=== PATIENT | female | born 1980 | race Caucasian/White ===

== ENCOUNTER 2018-02-24 10:25 | Emergency (ER) | payer MEDICAID, OTHER ==
[2018-02-24 10:38] VITALS: BP 157/84; PULSE 90; TEMP 98.3
[2018-02-24 10:48] VITALS: RESP 18
[2018-02-24] MEDS ORDERED: IBUPROFEN 800 MG TAB PO STA (10:49)
--- NOTE | 2018-02-24 11:00 | ED ---
URI HPI - General Chief Complaint: Upper Respiratory Infection Stated Complaint: flu like symptoms Time Seen by Provider: 02/24/18 10:39 Source: patient Mode of arrival: ambulatory Limitations: no limitations - History of Present Illness Initial Comments: Patient is a 37-year-old female presents with chief complaint of cough and chills since Friday. The patient cannot identify an inciting incident. There are no aggravating or alleviating factors. The patient admits to mild shortness of breath. She states her cough is productive though she does not know the color of her sputum. 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 Patient's medical history is otherwise noncontributory, she does not take any medications daily. She has no known ALLERGIES. - Related Data Previous Rx's Medication Instructions Recorded Azithromycin [Zithromax Z-pack] 250 mg PO DIRECTED #6 tab 02/24/18 Fluticasone Nasal [place] [Flonase 1 spray EA NOSTRIL DAILY #1 bottle 02/24/18 Nasal [place]] Allergies Allergy/AdvReac Type Severity Reaction Status Date / Time No Known Allergies Allergy Verified 02/24/18 10:49 Review of Systems ROS Statement: Those systems with pertinent positive or pertinent negative responses have been documented in the HPI. ROS Other: All systems not noted in ROS Statement are negative. Constitutional: Reports: chills Respiratory: Reports: cough Musculoskeletal: Reports: myalgia Past Medical History Past Medical History: Fibromyalgia History of Any Multi-Drug Resistant Organisms: None Reported Past Surgical History: Breast Surgery, Section, Orthopedic Surgery, Tubal Ligation Additional Past Surgical History / Comment(s): right knee surgery. Breast reduction. x 3 Past Psychological History: Anxiety, Depression Smoking Status: Current every day smoker Past Alcohol Use History: None Reported Past Drug Use History: None Reported General Exam Limitations: no limitations General appearance: alert, in no apparent distress Head exam: Present: atraumatic, normocephalic Eye exam: Present: normal appearance ENT exam: Present: mucous membranes moist Neck exam: Present: normal inspection Respiratory exam: Present: normal lung sounds bilaterally. Absent: respiratory distress, wheezes Cardiovascular Exam: Present: regular rate, normal rhythm GI/Abdominal exam: Present: soft. Absent: distended, tenderness Rectal exam: Present: deferred Extremities exam: Present: normal inspection Back exam: Present: normal inspection Neurological exam: Present: alert, oriented X3 Psychiatric exam: Present: normal affect, normal mood Skin exam: Present: warm, dry, intact Course Vital Signs 02/24/18 02/24/18 10:36 10:46 Temperature 98.3 F Pulse Rate 90 Respiratory 16 18 Rate Blood Pressure 157/84 O2 Sat by Pulse 98 Oximetry Medical Decision Making - Medical Decision Making Patient presents with a chief complaint of cough, congestion, and chills. On initial evaluation, vital signs are stable, patient is in no acute distress. Patient reevaluated with influenza swab, chest x-ray. She was given Motrin for myalgias. 11:36 AM X-ray shows no acute process, influenza is negative. Patient will be prescribed azithromycin, and Flonase. She was instructed to follow up with primary care 1-2 days, return to the emergency department if symptoms worsen or change. - Lab Data Lab Results 02/24/18 Range/Units 10:48 Influenza Type A RNA Not Detected (Not Detectd) Influenza Type B (PCR) Not Detected (Not Detectd) Disposition Clinical Impression: Bronchitis, Sinusitis Disposition: HOME SELF-CARE Condition: Good Instructions: Upper Respiratory Infection (ED) Is patient prescribed a controlled substance at d/c from ED?: No Referrals: None,Stated [Primary Care Provider] - 1-2 days Sophie Hill MD [STAFF PHYSICIAN] - 1-2 days Boom Murphy MD [REFERRING] - 1-2 days
--- NOTE | 2018-02-24 11:29 | XR ---
EXAMINATION TYPE: XR chest 2V DATE OF EXAM: 02/24/2018 COMPARISON: NONE HISTORY: Chest pain and flulike symptoms TECHNIQUE: Frontal and lateral views of the chest are obtained. FINDINGS: There is no focal air space opacity, pleural effusion, or pneumothorax seen. The cardiac silhouette size is within normal limits. The osseous structures are intact. IMPRESSION: No acute cardiopulmonary process.
== END 2018-02-24 11:48 | disposition home or self-care (01) ==
LOC: EC 10:25
DX: J40 Bronchitis, not specified as acute or chronic (principal); J32.9 Chronic sinusitis, unspecified; F17.200 Nicotine dependence, unspecified, uncomplicated
CPT/HCPCS: 71046; 87502; 99283

== ENCOUNTER 2018-06-25 08:59 | Observation (INO) | payer MEDICAID ==
[2018-06-25] MEDS ORDERED: SODIUM CHLORIDE 0.9% 1,000 ML IV STA (09:23)
[2018-06-25] MEDS ORDERED: ASPIRIN 81 MG PO STA (09:23)
[2018-06-25 09:43] LABS: Basophils % (A) 0 %; Eosinophils # (A) 0.1 k/uL (0-0.7); Eosinophils % (A) 2 %; HGB 13.2 gm/dL (11.4-16.0); Lymphocytes # (A) 2.5 k/uL (1.0-4.8); Lymphocytes % (A) 30 %; MCHC 32.3 g/dL (31.0-37.0); MCV 86.6 fL (80.0-100.0); Mean Platelet Volume 6.5; Monocytes # (A) 0.3 k/uL (0-1.0); Monocytes % (A) 4 %; Neutrophils # (A) 5.2 k/uL (1.3-7.7); Neutrophils % (A) 63 %; Platelet Count 325 k/uL (150-450); RBC 4.74 m/uL (3.80-5.40); RDW 13.9 % (11.5-15.5); WBC 8.3 k/uL (3.8-10.6)
--- NOTE | 2018-06-25 09:46 | ED ---
General Adult HPI - General Chief complaint: Chest Pain Stated complaint: CHEST PAIN Source: patient Mode of arrival: wheelchair Limitations: no limitations - History of Present Illness Initial comments: Dictation was produced using app[employer]obi dictation software. please excuse any grammatical, word or spelling errors. Chief Complaint: 87-year-old female past medical history of fibromyalgia presents with chest pain. History of Present Illness: Patient reports that she's been having chest pain for several weeks now. She states her chest pain was more worse than usual prompted her to come to the emergency department. She is accompanied by her friend. Patient has any chest trauma. Denies any history of cardiac disease. No family history of cardiac disease or sudden before the age of 45. Patient states pain is to her entire chest. She does report that the pain sometimes radiates to her left shoulder. Denies any associated diaphoresis, nausea or vomiting. Denies any constitutional symptoms. Patient states she's been coughing a little bit. She reports the chest pain is constant. The ROS documented in this emergency department record has been reviewed and confirmed by me. Those systems with pertinent positive or negative responses have been documented in the HPI. All other systems are other negative and/or noncontributory. - Related Data Home Medications Medication Instructions Recorded Confirmed Ibuprofen [Motrin Ib] 800 mg PO Q8HR PRN 06/25/18 06/25/18 Allergies Allergy/AdvReac Type Severity Reaction Status Date / Time No Known Allergies Allergy Verified 06/25/18 09:02 Review of Systems ROS Statement: Those systems with pertinent positive or pertinent negative responses have been documented in the HPI. ROS Other: All systems not noted in ROS Statement are negative. Past Medical History Past Medical History: Fibromyalgia History of Any Multi-Drug Resistant Organisms: None Reported Past Surgical History: Breast Surgery, Section, Orthopedic Surgery, Tubal Ligation Additional Past Surgical History / Comment(s): right knee surgery. Breast reduction. x 3 Past Psychological History: Anxiety, Depression Smoking Status: Current every day smoker Past Alcohol Use History: None Reported Past Drug Use History: None Reported General Exam - General Exam Comments Initial Comments: PHYSICAL EXAM: General Impression: Alert and oriented x3, not in acute distress HEENT: Normocephalic atraumatic, extra-ocular movements intact, pupils equal and reactive to light bilaterally, mucous membranes moist. Cardiovascular: Heart regular rate and rhythm, S1&S2 audible, no murmurs, rubs or gallops Chest: Lungs clear to auscultation bilaterally, no rhonchi, no wheeze, no rales Abdomen: Bowel sounds present, abdomen soft, non-tender, non-distended, no organomegaly Musculoskeletal: Pulses present and equal in all extremities, no peripheral edema Motor: Power 5/5 bilaterally, no focal deficits noted Neurological: CN II-XII grossly intact, no focal motor or sensory deficits noted Skin: Intact with no visualized rashes Psych: Normal affect and mood Limitations: no limitations Course Vital Signs 06/25/18 06/25/18 06/25/18 09:01 09:32 10:02 Temperature 97 F L Pulse Rate 90 70 Pulse Rate [ 78 Intellectual Property Manager ] Respiratory 20 16 Rate Blood Pressure 132/95 121/76 O2 Sat by Pulse 98 98 Oximetry Medical Decision Making - Medical Decision Making ED course:-year-old female presents with clinical presentation consistent with atypical chest pain with typical features. Patient does have risk factors of tobacco use, obesity. Denies any cardiac history. No strong family history of cardiac disease. As upon arrival are within acceptable limits. EKG is not normal. There are T-wave inversions in the precordial leads. Patient does have a history of SVT. Given clinical presentation I believe it is warranted that patient undergo cardiac lab analysis an x-ray given clinical presentation EKG changes. Laboratory evaluation obtained showing no acute processes. First set cardiac enzymes are negative. Chest x- ray shows no acute processes. EKG from 2007 was obtained showing no abnormalities to the T waves. These EKG findings are new and appear to be croup making anatomical sense. Patient to be admitted for observation to primary care physician for suture troponins possible cardiac stress test. She is understandable agreeable to disposition. EKG Interpretation: A 12 lead EKG was obtained. It was interpreted by myself and attending physician. There is a P wave before every QRS complex. Rate is 66. Rhythm is normal sinus rhythm,. Interval 134, QRS 80, QTc 446. QT is not prolonged. No ST segment depression or elevation. There are T-wave inversions of the precordial leads V 2 through V5. - Lab Data Result diagrams: 06/25/18 09:31 06/25/18 09:31 Lab Results 06/25/18 06/25/18 06/25/18 Range/Units 09:31 09:31 09:31 WBC 8.3 (3.8-10.6) k/uL RBC 4.74 (3.80-5.40) m/uL Hgb 13.2 (11.4-16.0) gm/dL Hct 41.0 (34.0-46.0) % MCV 86.6 (80.0-100.0) fL MCH 28.0 (25.0-35.0) pg MCHC 32.3 (31.0-37.0) g/dL RDW 13.9 (11.5-15.5) % Plt Count 325 (150-450) k/uL Neutrophils % 63 % Lymphocytes % 30 % Monocytes % 4 % Eosinophils % 2 % Basophils % 0 % Neutrophils # 5.2 (1.3-7.7) k/uL Lymphocytes # 2.5 (1.0-4.8) k/uL Monocytes # 0.3 (0-1.0) k/uL Eosinophils # 0.1 (0-0.7) k/uL Basophils # 0.0 (0-0.2) k/uL PT (9.0-12.0) sec INR (<1.2) APTT (22.0-30.0) sec D-Dimer (<0.60) mg/L FEU Sodium 141 (137-145) mmol/L Potassium 4.1 (3.5-5.1) mmol/L Chloride 109 H (98-107) mmol/L Carbon Dioxide 23 (22-30) mmol/L Anion Gap 9 mmol/L BUN 13 (7-17) mg/dL Creatinine 0.68 (0.52-1.04) mg/dL Est GFR (CKD-EPI)AfAm >90 (>60 ml/min/1.73 sqM) Est GFR (CKD-EPI)NonAf >90 (>60 ml/min/1.73 sqM) Glucose 93 (74-99) mg/dL Calcium 9.3 (8.4-10.2) mg/dL Magnesium 2.1 (1.6-2.3) mg/dL Total Bilirubin 0.4 (0.2-1.3) mg/dL AST 25 (14-36) U/L ALT 39 (9-52) U/L Alkaline Phosphatase 95 (38-126) U/L Total Creatine Kinase 64 (30-135) U/L CK-MB (CK-2) 0.7 (0.0-2.4) ng/mL CK-MB (CK-2) Rel Index 1.1 Troponin I <0.012 (0.000-0.034) ng/mL Total Protein 6.5 (6.3-8.2) g/dL Albumin 3.9 (3.5-5.0) g/dL 06/25/18 Range/Units 09:31 WBC (3.8-10.6) k/uL RBC (3.80-5.40) m/uL Hgb (11.4-16.0) gm/dL Hct (34.0-46.0) % MCV (80.0-100.0) fL MCH (25.0-35.0) pg MCHC (31.0-37.0) g/dL RDW (11.5-15.5) % Plt Count (150-450) k/uL Neutrophils % % Lymphocytes % % Monocytes % % Eosinophils % % Basophils % % Neutrophils # (1.3-7.7) k/uL Lymphocytes # (1.0-4.8) k/uL Monocytes # (0-1.0) k/uL Eosinophils # (0-0.7) k/uL Basophils # (0-0.2) k/uL PT 10.5 (9.0-12.0) sec INR 1.1 (<1.2) APTT 23.0 (22.0-30.0) sec D-Dimer 0.18 (<0.60) mg/L FEU Sodium (137-145) mmol/L Potassium (3.5-5.1) mmol/L Chloride (98-107) mmol/L Carbon Dioxide (22-30) mmol/L Anion Gap mmol/L BUN (7-17) mg/dL Creatinine (0.52-1.04) mg/dL Est GFR (CKD-EPI)AfAm (>60 ml/min/1.73 sqM) Est GFR (CKD-EPI)NonAf (>60 ml/min/1.73 sqM) Glucose (74-99) mg/dL Calcium (8.4-10.2) mg/dL Magnesium (1.6-2.3) mg/dL Total Bilirubin (0.2-1.3) mg/dL AST (14-36) U/L ALT (9-52) U/L Alkaline Phosphatase (38-126) U/L Total Creatine Kinase (30-135) U/L CK-MB (CK-2) (0.0-2.4) ng/mL CK-MB (CK-2) Rel Index Troponin I (0.000-0.034) ng/mL Total Protein (6.3-8.2) g/dL Albumin (3.5-5.0) g/dL Disposition Clinical Impression: Chest pain Disposition: ADMITTED IP TO THIS HOSP Referrals: Satinder Bellamy MD [Primary Care Provider] - 1-2 days Decision Time: 10:55
--- NOTE | 2018-06-25 09:49 | XR ---
EXAMINATION TYPE: XR chest 2V DATE OF EXAM: 06/25/2018 COMPARISON: Chest x-ray February 24, 2018 HISTORY: Chest pain. TECHNIQUE: Frontal and lateral views of the chest are obtained. FINDINGS: There is no focal air space opacity, pleural effusion, or pneumothorax seen. The cardiac silhouette size is within normal limits. The osseous structures are intact. IMPRESSION: No acute process. No significant change from prior.
[2018-06-25 09:52] LABS: ALT 39 U/L (9-52); AST 25 U/L (14-36); Albumin 3.9 g/dL (3.5-5.0); Alkaline Phosphatase 95 U/L (38-126); Anion Gap 9 mmol/L; Blood Urea Nitrogen 13 mg/dL (7-17); Calcium 9.3 mg/dL (8.4-10.2); Carbon Dioxide 23 mmol/L (22-30); Chloride 109 mmol/L (98-107); Glucose 93 mg/dL (74-99); Magnesium 2.1 mg/dL (1.6-2.3); Potassium 4.1 mmol/L (3.5-5.1); Sodium 141 mmol/L (137-145); Total Bilirubin 0.4 mg/dL (0.2-1.3); Total Protein 6.5 g/dL (6.3-8.2)
[2018-06-25 09:56] LABS: D-Dimer 0.18 mg/L FEU (<0.60); INR 1.1 (<1.2); Prothrombin Time 10.5 sec (9.0-12.0)
[2018-06-25 10:01] LABS: Creatine Kinase 64 U/L (30-135)
[2018-06-25 10:15] LABS: Creatine Kinase MB 0.7 ng/mL (0.0-2.4); Troponin I <0.012 ng/mL (0.000-0.034)
[2018-06-25] MEDS ORDERED: NITROGLYCERIN SL TABS 0.4 MG TAB SUBLINGUAL PRN (10:49)
[2018-06-25] MEDS ORDERED: ALPRAZolam 1 MG TAB PO STA (11:07)
[2018-06-25] MEDS ORDERED: KETOROLAC 30 MG/ML 1 ML VIAL IVP PRN (15:58)
[2018-06-25 16:36] LABS: Creatine Kinase 51 U/L (30-135)
[2018-06-25 16:50] LABS: Creatine Kinase MB 0.4 ng/mL (0.0-2.4); Troponin I <0.012 ng/mL (0.000-0.034)
[2018-06-25] MEDS: CYCLOBENZAPRINE 10 MG TAB PO SCH (20:25)
[2018-06-25] MEDS ORDERED: guaiFENesin SYRUP 100MG/5ML 200 MG/10 ML CUP PO PRN (20:27)
[2018-06-25 21:20] LABS: Creatine Kinase 45 U/L (30-135)
[2018-06-25 21:30] LABS: Creatine Kinase MB 0.4 ng/mL (0.0-2.4); Troponin I <0.012 ng/mL (0.000-0.034)
[2018-06-26 03:24] LABS: Cholesterol 220 mg/dL (<200); HDL Cholesterol 62 mg/dL (40-60); LDL Cholesterol,Calculated 148 mg/dL (0-99); Triglycerides 49 mg/dL (<150)
[2018-06-26 08:04] VITALS: RESP 18
[2018-06-26] MEDS: CYCLOBENZAPRINE 10 MG TAB PO SCH ×2 (08:06→16:56)
[2018-06-26] MEDS ORDERED: ASPIRIN 325 MG TAB PO SCH (09:00)
[2018-06-26 15:52] VITALS: BP 112/75; PULSE 73; TEMP 98.5
--- NOTE | 2018-06-26 17:21 | HP ---
HISTORY AND PHYSICAL CHIEF COMPLAINT: Chest pain. HISTORY OF PRESENT ILLNESS: This is the first admission for this 37-year-old white female who came in describing a pressure-like sensation in the anterior chest which had been going on for 2 or 3 weeks. She had no diaphoresis, exertional exacerbation, shortness of breath, back pain, radiation of pain, etc. She does seem like a very anxious individual. The pain was on the right side of the chest. REVIEW OF SYSTEMS: She has had no fever, chills, cough, hemoptysis, heart disease, murmurs, fever, hypertension, abdominal pain, nausea, vomiting, diarrhea, renal disease, diabetes, etc. PAST MEDICAL HISTORY, FAMILY HISTORY, PERSONAL AND SOCIAL HISTORIES: Find that there is some heart disease in her family, but in elderly men. She is not allergic to any medication. She has been on Effexor and Abilify in the past and has been out of them lately. She does smoke. PHYSICAL EXAM: Blood pressure 110/78, pulse 72, respirations of 18 and she is afebrile. In general, she appeared to be well-developed, well-nourished, in no acute distress. Skin color is normal. Skin is warm and dry. Lymph nodes are not enlarged. Head, ears, eyes, nose, mouth and throat were normal. Neck veins were not distended. Thyroid is not enlarged. Chest is clear. There are no rubs. Cardiac is normal. There are no murmurs or extra sounds. The abdomen is soft and nontender and there are no masses or visceromegaly. Extremities are normal. Neurologically, she is intact. Chest wall is not tender. IMPRESSION: 1. Right-sided atypical chest pain. 2. Anxiety. PLAN: 1. Bed rest. 2. EKGs and enzymes and further workup, if necessary. MMODL / IJN: [id number] /
--- NOTE | 2018-06-26 21:27 | DS ---
DISCHARGE SUMMARY CHIEF COMPLAINT: Atypical chest pain. HISTORY OF PRESENT ILLNESS AND PHYSICAL EXAM: Details can be found in the laboratory section of chart. COURSE IN HOSPITAL: After admission, she was placed on bed rest, started on intravenous fluids and had serial EKGs and enzymes and they were normal. Flexeril seemed to help. She was very anxious and requested prescriptions for the Flexeril and to be put back on her Effexor and Abilify. She will be seen in the office in several days. FINAL DIAGNOSES: 1. Atypical chest pain. 2. Anxiety neurosis. 3. Bipolar depression. OPERATIONS: None. CONSULTATION: None. She is improved. MMODL / IJN: [id number] /
== END 2018-06-26 17:08 | disposition home or self-care (01) ==
LOC: EC 08:59 → 3OBS 10:49
PROVIDERS: ADMIT Family Medicine; ATTEND Family Medicine
DX: R07.89 Other chest pain (principal); R05 Cough; R94.31 Abnormal electrocardiogram [ECG] [EKG]; F41.1 Generalized anxiety disorder; F31.9 Bipolar disorder, unspecified; F17.200 Nicotine dependence, unspecified, uncomplicated; E66.9 Obesity, unspecified; Z68.32 Body mass index [BMI] 32.0-32.9, adult; Z82.49 Family history of ischemic heart disease and other diseases of the circulatory system
CPT/HCPCS: 99285 ×2; 96374; 36415; 93005; 85379; 80061; 80053; 82550; 82553; 83735; 84484; 85025; 85610; 85730; 71046; G0378 ×2; J1885

== ENCOUNTER 2018-12-07 07:03 | Observation (INO) | payer BC, MEDICAID ==
[2018-12-07] MEDS ORDERED: ASPIRIN 81 MG PO STA (07:11)
--- NOTE | 2018-12-07 07:28 | ED ---
Chest Pain HPI - General Source: patient, RN notes reviewed Mode of arrival: wheelchair Limitations: no limitations <Barry Narayan - Last Filed: 12/07/18 09:12> <Andres Schofield - Last Filed: 12/07/18 09:19> - General Chief Complaint: Chest Pain Stated Complaint: Chest Pain Time Seen by Provider: 12/07/18 07:11 - History of Present Illness Initial Comments: 38-year-old female presents emergency Department with chief complaint of chest pain. Patient had intermittent chest pain for last few months. Patient saw PCP who scheduled an echo and further testing. Patient states that this episode of chest pain started around 4 AM. Patient states it's centralized nonradiating. She has no history of hypertension or diabetes. She does have mild hyperlipidemia though no current medications. She is a daily smoker and has cardiac family history. Patient denies any leg swelling, leg pain no recent traveling. Patient states she does get nauseated when the pain starts. The pain is not exacerbated by exercise. (Barry Narayan) - Related Data Home Medications Medication Instructions Recorded Confirmed LORazepam [Ativan] 0.5 mg PO DAILY PRN 12/07/18 12/07/18 Venlafaxine HCl [Effexor XR] 225 mg PO HS 12/07/18 12/07/18 Allergies Allergy/AdvReac Type Severity Reaction Status Date / Time No Known Allergies Allergy Verified 12/07/18 07:34 Review of Systems ROS Other: All systems not noted in ROS Statement are negative. <Barry Narayan - Last Filed: 12/07/18 09:12> ROS Other: All systems not noted in ROS Statement are negative. <Andres Schofield - Last Filed: 12/07/18 09:19> ROS Statement: Those systems with pertinent positive or pertinent negative responses have been documented in the HPI. EKG Findings - EKG Comments: EKG Findings:: EKG performed at 17:24 normal sinus rhythm for long QT with a rate of 89 NV 140 QRS 88 QT/QTC 382/464 <Barry Narayan - Last Filed: 12/07/18 09:12> Past Medical History Past Medical History: Fibromyalgia, Hyperlipidemia Additional Past Medical History / Comment(s): Pt recently told cholesterol was high and instructed to go on a low cholesterol diet. History of Any Multi-Drug Resistant Organisms: None Reported Past Surgical History: Breast Surgery, Section, Orthopedic Surgery, Tubal Ligation Additional Past Surgical History / Comment(s): right knee arthroscopic surgery, bilateral breast reduction. x 3, Past Anesthesia/Blood Transfusion Reactions: No Reported Reaction Past Psychological History: Anxiety, Depression Smoking Status: Current every day smoker Past Alcohol Use History: Occasional Past Drug Use History: None Reported - Past Family History Father Family Medical History: No Reported History Additional Family Medical History / Comment(s): Father is healthy. HTN and diabetes runs on his side of the family. Mother Family Medical History: No Reported History <Barry Narayan - Last Filed: 12/07/18 09:12> General Exam Limitations: no limitations General appearance: alert, in no apparent distress Head exam: Present: atraumatic, normocephalic, normal inspection Eye exam: Present: normal appearance, PERRL, EOMI. Absent: scleral icterus, conjunctival injection, periorbital swelling ENT exam: Present: normal exam, normal oropharynx, mucous membranes moist, TM's normal bilaterally Neck exam: Present: normal inspection, full ROM. Absent: tenderness, meningismus, lymphadenopathy Respiratory exam: Present: normal lung sounds bilaterally. Absent: respiratory distress, wheezes, rales, rhonchi, stridor Cardiovascular Exam: Present: regular rate, normal rhythm, normal heart sounds. Absent: systolic murmur, diastolic murmur, rubs, gallop, clicks GI/Abdominal exam: Present: soft, normal bowel sounds. Absent: distended, tenderness, guarding, rebound, rigid Back exam: Absent: CVA tenderness (R), CVA tenderness (L) Neurological exam: Present: alert Skin exam: Present: warm, dry, intact, normal color. Absent: rash <Barry Narayan - Last Filed: 12/07/18 09:12> Course <Barry Narayan - Last Filed: 12/07/18 09:12> <Andres Schofield - Last Filed: 12/07/18 09:19> Vital Signs 12/07/18 12/07/18 12/07/18 07:07 07:34 09:10 Temperature 98.1 F 97.2 F L Pulse Rate 98 86 Pulse Rate [ 84 Database Management Specialist ] Respiratory 18 18 Rate Blood Pressure 141/91 135/95 O2 Sat by Pulse 100 100 Oximetry - Reevaluation(s) Reevaluation #1: 12/07/18 09:18 Patient reevaluated by myself, Dr. Schofield. Patient resting comfortably in bed. Patient and family updated on results and plan. Case was discussed in detail with Dr. Brizuela, who will admit his patient. I did review and wouldn't be findings. This includes all diagnostic interpretations and treatment plan. ( Andres Schofield) Chest Pain MDM <Barry Narayan - Last Filed: 12/07/18 09:12> <Andres Schofield - Last Filed: 12/07/18 09:19> - MDM 38-year-old female presented for chest pain. Patient has had intermittent chest pain but new episode started this morning. Patient will be admitted for echo and possible stress test. (Barry Narayan) Disposition Time of Disposition: 09:12 <Barry Narayan - Last Filed: 12/07/18 09:12> <Andres Schofield - Last Filed: 12/07/18 09:19> Clinical Impression: Chest pain Disposition: ADMITTED IP TO THIS HOSP Condition: Stable Referrals: Tomi Brizuela MD [Primary Care Provider] - 1-2 days
[2018-12-07 08:00] LABS: Basophils % (A) 0 %; Eosinophils # (A) 0.1 k/uL (0-0.7); Eosinophils % (A) 1 %; HGB 14.4 gm/dL (11.4-16.0); Lymphocytes # (A) 1.8 k/uL (1.0-4.8); Lymphocytes % (A) 19 %; MCH 29.4 pg (25.0-35.0); MCHC 33.5 g/dL (31.0-37.0); MCV 87.7 fL (80.0-100.0); Monocytes # (A) 0.4 k/uL (0-1.0); Monocytes % (A) 4 %; Neutrophils # (A) 7.1 k/uL (1.3-7.7); Neutrophils % (A) 74 %; Platelet Count 306 k/uL (150-450); WBC 9.6 k/uL (3.8-10.6)
--- NOTE | 2018-12-07 08:00 | XR ---
EXAMINATION TYPE: XR chest 2V DATE OF EXAM: 12/07/2018 COMPARISON: 06/25/2018 INDICATION: Chest pain, nausea TECHNIQUE: Frontal and lateral views of the chest are obtained. FINDINGS: The heart size is normal. The pulmonary vasculature is normal. The lungs are clear. IMPRESSION: 1. No acute pulmonary process.
[2018-12-07 08:12] LABS: ALT 39 U/L (9-52); AST 20 U/L (14-36); Albumin 4.2 g/dL (3.5-5.0); Alkaline Phosphatase 101 U/L (38-126); Anion Gap 9 mmol/L; Blood Urea Nitrogen 12 mg/dL (7-17); Calcium 11.1 mg/dL (8.4-10.2); Carbon Dioxide 24 mmol/L (22-30); Chloride 107 mmol/L (98-107); Glucose 110 mg/dL (74-99); Lipase 154 U/L (23-300); Magnesium 1.6 mg/dL (1.6-2.3); Potassium 4.1 mmol/L (3.5-5.1); Sodium 140 mmol/L (137-145); Total Bilirubin 0.3 mg/dL (0.2-1.3); Total Protein 7.1 g/dL (6.3-8.2)
[2018-12-07 08:42] LABS: D-Dimer 0.18 mg/L FEU (<0.60); Partial Thromboplastin Time 23.7 sec (22.0-30.0); Prothrombin Time 10.5 sec (9.0-12.0)
[2018-12-07] MEDS ORDERED: HEPARIN SODIUM,PORCINE 5,000 UNIT/ML 1 ML VIAL IV ONE (09:09)
[2018-12-07] MEDS ORDERED: NITROGLYCERIN SL TABS 0.4 MG TAB SUBLINGUAL PRN (09:09)
[2018-12-07] MEDS: HEPARIN SOD,PORK IN 0.45% NACL 25,000 UNIT in 0.45% NACL 1 250ML.BAG IV SCH (09:39)
--- NOTE | 2018-12-07 11:29 | P.HPIM ---
History of Present Illness 38-year-old female presented emergency room with complaints of left-sided chest pain. Patient states that is been intermittent for for a few months started in June was worse today. States she has some nausea and palpitations with the chest pain. Patient has had a cough for 2 months. Patient is a smoker history of of hyperlipidemia fibromyalgia. Patient to be evaluated by cardiology Review of Systems Cardiovascular: Reports chest pain, Reports palpitations Gastrointestinal: Reports nausea Past Medical History Past Medical History: Fibromyalgia, Hyperlipidemia Additional Past Medical History / Comment(s): Mildly elevated cholesterol-no RX yet, pt states she has had nausea past few months and the cause is unknow/she has lost 20 pounds over the past few months, near syncope, bronchitis. History of Any Multi-Drug Resistant Organisms: None Reported Past Surgical History: Breast Surgery, Section, Orthopedic Surgery, Tubal Ligation Additional Past Surgical History / Comment(s): right knee arthroscopic surgery, bilateral breast reduction. x 3, Past Anesthesia/Blood Transfusion Reactions: No Reported Reaction Smoking Status: Current every day smoker - Past Family History Father Family Medical History: No Reported History Additional Family Medical History / Comment(s): Father is healthy. HTN and diabetes runs on his side of the family. Mother Family Medical History: No Reported History Additional Family Medical History / Comment(s): Mother is healthy Medications and Allergies Home Medications Medication Instructions Recorded Confirmed Type LORazepam [Ativan] 0.5 mg PO DAILY PRN 12/07/18 12/07/18 History Venlafaxine HCl [Effexor XR] 225 mg PO HS 12/07/18 12/07/18 History Allergies Allergy/AdvReac Type Severity Reaction Status Date / Time No Known Allergies Allergy Verified 12/07/18 07:34 Physical Exam Vitals: Vital Signs Temp Pulse Pulse Pulse Resp BP BP 12/07/18 09:50 97.8 F 74 18 151/94 12/07/18 09:10 97.2 F L 86 18 135/95 12/07/18 07:34 84 12/07/18 07:07 98.1 F 98 18 141/91 Pulse Ox 12/07/18 09:50 98 12/07/18 09:10 100 12/07/18 07:34 12/07/18 07:07 100 Intake and Output 12/06/18 12/07/18 12/07/18 22:59 06:59 14:59 Other: Voiding Method Toilet # Voids 1 Weight 79.379 kg - Constitutional General appearance: mild distress - EENT Eyes: PERRLA Ears: bilateral: normal - Neck Neck: normal ROM - Respiratory Respiratory: bilateral: CTA - Cardiovascular Rhythm: regular - Gastrointestinal General gastrointestinal: soft - Integumentary Integumentary: normal - Neurologic Neurologic: CNII-XII intact - Musculoskeletal Musculoskeletal: gait normal - Psychiatric Psychiatric: A&O x's 3, appropriate affect, intact judgment & insight Results CBC & Chem 7: 12/07/18 07:40 12/07/18 07:40 Labs: Abnormal Lab Results - Last 24 Hours (Table) 12/07/18 Range/Units 07:40 Glucose 110 H (74-99) mg/dL Calcium 11.1 H (8.4-10.2) mg/dL Chest x-ray: report reviewed Thrombosis Risk Factor Assmnt - Choose All That Apply Any of the Below Risk Factors Present?: Yes Each Factor Represents 1 point: Obesity (BMI >25) Other Risk Factors: No Other congenital or acquired thrombophilia - If yes, enter type in comment: No Thrombosis Risk Factor Assessment Total Risk Factor Score: 1 Thrombosis Risk Factor Assessment Level: Low Risk Assessment and Plan Plan: Assessment Chest pain History of fibromyalgia History of hyperlipidemia Plan Cardiology consultation echo ordered
--- NOTE | 2018-12-07 13:15 | ECHOF ---
Referral Reason:chest pain MEASUREMENTS -------- HEIGHT: 160.0 cm WEIGHT: 79.4 kg BP: RVIDd: 2.6 cm (< 3.3) IVSd: 0.9 cm (0.6 - 1.1) LVIDd: 4.1 cm (3.9 - 5.3) LVPWd: 1.2 cm (0.6 - 1.1) IVSs: 1.0 cm LVIDs: 3.4 cm LVPWs: 1.2 cm LA Diam: 3.3 cm (2.7 - 3.8) Ao Diam: 2.5 cm (2.0 - 3.7) AV Cusp: 1.9 cm (1.5 - 2.6) LA Diam: 3.7 cm (2.7 - 3.8) MV EXCURSION: 17.354 mm (> 18.000) MV EF SLOPE: 75 mm/s (70 - 150) EPSS: 0.5 cm MV E Lon: 0.91 m/s MV DecT: 247 ms MV A Lon: 1.04 m/s MV E/A Ratio: 0.88 RAP: 5.00 mmHg RVSP: 13.97 mmHg FINDINGS -------- Sinus rhythm. This was a technically adequate study. LV size, wall thickness and systolic function are normal, with an EF greater than 55%. The left lazaro tricular size is normal. The right ventricle is normal in size. The left atrial size is normal. The right atrial size is normal. The aortic valve is trileaflet, and appears structurally normal. No aortic stenosis or regurgitation. Mild mitral annular calcification present. Mild mitral regurgitation is present. Mild tricuspid regurgitation present. There is no evidence of pulmonary hypertension. The right v entricular systolic pressure, as measured by Doppler, is 13.97mmHg. Trace/mild (physiologic) pulmonic regurgitation. The aortic root size is normal. There is no pericardial effusion. CONCLUSIONS -------- 1. LV size, wall thickness and systolic function are normal, with an EF greater than 55%. 2. The left ventricular size is normal. 3. The right ventricle is normal in size. 4. The left atrial size is normal. 5. The right atrial size is normal. 6. The aortic valve is trileaflet, and appears structurally normal. No aortic stenosis or regurgitati on. 7. Mild mitral annular calcification present. 8. Mild mitral regurgitation is present. 9. Mild tricuspid regurgitation present. 10. There is no evidence of pulmonary hypertension. 11. The right ventricular systolic pressure, as measured by Doppler, is 13.97mmHg. 12. Trace/mild (physiologic) pulmonic regurgitation. 13. The aortic root size is normal. 14. There is no pericardial effusion. CERTIFIED FAMILY MEDIATOR: Jacquie Smith RDCS
[2018-12-07] MEDS ORDERED: HEPARIN SODIUM,PORCINE 5,000 UNIT/ML 1 ML VIAL IV PRN (17:05)
[2018-12-07] MEDS: VENLAFAXINE HCL ER 75 MG CAP PO SCH (20:36)
[2018-12-08] MEDS: HEPARIN SOD,PORK IN 0.45% NACL 25,000 UNIT in 0.45% NACL 1 250ML.BAG IV SCH (05:42)
[2018-12-08] MEDS: ACETAMINOPHEN TAB 325 MG TAB PO PRN (05:51)
[2018-12-08] MEDS: LORazepam 0.5 MG TAB PO PRN ×2 (05:54→20:22)
[2018-12-08 07:22] VITALS: RESP 18
[2018-12-08 08:35] LABS: Mean Platelet Volume 6.5; Platelet Count 273 k/uL (150-450)
[2018-12-08 08:41] LABS: Cholesterol 226 mg/dL (<200); HDL Cholesterol 66 mg/dL (40-60); LDL Cholesterol,Calculated 138 mg/dL (0-99); Triglycerides 109 mg/dL (<150)
--- NOTE | 2018-12-08 10:36 | P.CRDCN ---
History of Present Illness History of present illness: This is a pleasant 38-year-old female past medical history significant for SVT, dyslipidemia, fibromyalgia and chronic nicotine dependence. She states she underwent an EP study with Dr. Bartlett in the past but no ablation was performed, exact details unavailable. We have been asked to see her in consultation for chest pain. She states for the recent few months, since June she has been feeling a heavy sensation in the mid-sternal region with no radiation to the arm, back, neck or jaw. The discomfort comes most at rest with no specific aggravating factors. When it starts it is very intense and usually she can take some deep breaths and it will subside on its own. Also she has been feeling intermittent feelings of fluttering and palpitations in the chest. The way she describes it as her heart beats fast and irregular then it seems to stop and she feels acutely light headed like she is going to pass out. There has been no actual syncope or loss of consciousness per the patient. This is not associated with chest pain or shortness of breath. The chest pain and palpitations are unrelated. She is currently chest pain free and not feeling any palpitations. Echocardiogram obtained on admission reveals preserved LV systolic function with EF 55%. EKG reveals sinus mechanism with nonspecific T-wave flattening noted in the precordial leads. Consistent with previous EKG compared to June 2018. Chest x-ray is negative for acute cardiopulmonary process. Laboratory data reviewed, WBC 9.6, hemoglobin 14.4, platelets 306, d-dimer 0.18 , sodium 140, potassium 4.1, magnesium 1.6, creatinine 0.65, cardiac enzymes negative 3, LDL 138, HDL 66. She takes no daily cardiac medications. At the time of my exam: CONSTITUTIONAL: Denies fever. Denies chills. EYES: Denies blurred vision. Denies vision changes. Denies eye pain. EARS, NOSE, MOUTH & THROAT: Denies headache. Denies sore throat. Denies ear pain. CARDIOVASCULAR: Denies chest pain. Denies shortness of breath. Denies orthopnea. Denies PND. Denies palpitations. RESPIRATORY: Denies cough. GASTROINTESTINAL: Denies abdominal pain. Denies diarrhea. Denies constipation. Denies nausea. Denies vomiting. MUSCULOSKELETAL: Denies myalgias. INTEGUMENTARY: Denies pruitis. Denies rash. NEUROLOGIC: Denies numbness. Denies tingling. Denies weakness. PSYCHIATRIC: Denies anxiety. Denies depression. ENDOCRINE: Denies fatigue. Denies weight change. Denies polydipsia. Denies polyurina. GENITOURINARY: Denies burning, hematuria or urgency with micturation. HEMATOLOGIC: Denies history of anemia. Denies bleeding. Blood pressure 123/80 heart rate 73 afebrile maintaining oxygen saturation on room air GENERAL: This is a 38-year-old female in no apparent distress at the time of my examination. HEENT: Head is atraumatic, normocephalic. Pupils are equal, round. Sclerae anicteric. Conjunctivae are clear. Mucous membranes of the mouth are moist. Neck is supple. There is no jugular venous distention. No carotid bruit is heard. LUNGS: Clear to auscultation no wheezes, rales or rhonchi. No chest wall tenderness is noted on palpation or with deep breathing. HEART: Regular rate and rhythm without murmurs, rubs or gallops. S1 and S2 heard. ABDOMEN: Soft, nontender. Bowel sounds are heard. No organomegaly noted. EXTREMITIES: No evidence of peripheral edema and no calf tenderness noted. VASCULAR: Radial and dorsalis pedis pulses palpated, no evidence of clubbing. NEUROLOGIC: Patient is awake, alert and oriented x3. ASSESSMENT Chest pain, atypical. An acute coronary event has been ruled out with no acute EKG changes and negative cardiac enzymes. Palpitations with presyncopal episodes Dyslipidemia Chronic nicotine dependence. PLAN An acute coronary event has been ruled out. Discontinue heparin infusion. Baseline EKG abnormalities noted, will recommend stress echocardiogram to assess for stress induced ischemia as well as exercise induced arrhythmia. Check TSH. Ongoing telemetry monitoring for an acute arrhythmia. Recommend lifestyle modifications for lowering of cholesterol as well as smoking cessation. If testing is unremarkable she may be discharged home. Outpatient event monitoring will also be set up through the office and she will follow up with Dr. Morataya thereafter. Thank you kindly for this consultation. Nurse Practitioner note has been reviewed, I agree with a documented findings and plan of care. Patient was seen and examined. Past Medical History Past Medical History: Fibromyalgia, Hyperlipidemia Additional Past Medical History / Comment(s): Mildly elevated cholesterol-no RX yet, pt states she has had nausea past few months and the cause is unknow/she has lost 20 pounds over the past few months, near syncope, bronchitis. History of Any Multi-Drug Resistant Organisms: None Reported Past Surgical History: Breast Surgery, Section, Orthopedic Surgery, Tubal Ligation Additional Past Surgical History / Comment(s): right knee arthroscopic surgery, bilateral breast reduction. x 3, Past Anesthesia/Blood Transfusion Reactions: No Reported Reaction Smoking Status: Current every day smoker - Past Family History Father Family Medical History: No Reported History Additional Family Medical History / Comment(s): Father is healthy. HTN and diabetes runs on his side of the family. Mother Family Medical History: No Reported History Additional Family Medical History / Comment(s): Mother is healthy Medications and Allergies Home Medications Medication Instructions Recorded Confirmed Type LORazepam [Ativan] 0.5 mg PO DAILY PRN 12/07/18 12/07/18 History Venlafaxine HCl [Effexor XR] 225 mg PO HS 12/07/18 12/07/18 History Allergies Allergy/AdvReac Type Severity Reaction Status Date / Time No Known Allergies Allergy Verified 12/07/18 07:34 Physical Exam Vitals: Vital Signs Temp Pulse Pulse Resp BP BP BP 12/08/18 07:27 12/08/18 07:21 97.9 F 73 18 123/80 12/08/18 03:57 97.8 F 80 16 130/84 12/08/18 03:21 16 12/08/18 00:00 16 12/07/18 23:09 98.2 F 70 16 114/71 12/07/18 20:00 16 12/07/18 19:54 12/07/18 19:33 98.3 F 64 16 123/81 12/07/18 15:39 98.8 F 78 18 125/81 12/07/18 12:47 12/07/18 12:00 98.3 F 81 18 123/86 12/07/18 09:50 97.8 F 74 18 151/94 12/07/18 09:10 97.2 F L 86 18 135/95 Pulse Ox 12/08/18 07:27 99 12/08/18 07:21 98 12/08/18 03:57 99 12/08/18 03:21 12/08/18 00:00 12/07/18 23:09 98 12/07/18 20:00 02/25/19 19:54 97 12/07/18 19:33 98 12/07/18 15:39 98 12/07/18 12:47 96 12/07/18 12:00 97 12/07/18 09:50 98 12/07/18 09:10 100 Intake and Output 12/07/18 12/08/18 12/08/18 22:59 06:59 14:59 Intake Total 188.289 176.32 Balance 188.289 176.32 Intake: Intake, IV Titration 70.289 176.32 Amount Heparin Sod,Pork in 0.45% 70.289 176.32 NaCl 25,000 unit In 0.45 % NaCl 1 250ml.bag @ 12 UNITS/KG/HR 9.52 mls/hr IV .Q24H [facility] Rx#: [id number] Oral 118 Other: Voiding Method Toilet Toilet # Voids 1 1 Results 12/08/18 07:49 12/07/18 07:40 Cardiac Enzymes 12/07/18 12/07/18 12/07/18 Range/Units 07:40 13:30 19:29 Troponin I <0.012 <0.012 <0.012 (0.000-0.034) ng/mL Coagulation 12/07/18 12/07/18 12/07/18 Range/Units 07:40 15:50 23:15 PT 10.5 (9.0-12.0) sec APTT 23.7 37.5 H 59.7 H (22.0-30.0) sec Current Medications Generic Name Dose Route Start Last Admin Trade Name Freq PRN Reason Stop Dose Admin Acetaminophen 650 mg 12/08/18 05:48 12/08/18 05:51 Tylenol Tab PO 650 mg Q4HR PRN Administration Fever and/ or Pain Aspirin 325 mg 12/08/18 09:00 Aspirin PO DAILY [facility] Heparin Sodium (Porcine) 0 unit 12/07/18 17:05 12/07/18 17:27 Heparin IV 2,750 unit PER PROTOCOL PRN Administration Low PTT Protocol Lorazepam 0.5 mg 12/07/18 11:19 12/08/18 05:54 Ativan PO 0.5 mg DAILY PRN Administration Anxiety Nitroglycerin 0.4 mg 12/07/18 09:09 Nitrostat SUBLINGUAL Q5M PRN Chest Pain Venlafaxine HCl 225 mg 12/07/18 21:00 12/07/18 20:36 Effexor Xr PO 225 mg HS [facility] Administration Intake and Output 12/07/18 12/08/18 12/08/18 22:59 06:59 14:59 Intake Total 188.289 176.32 Balance 188.289 176.32 Intake: Intake, IV Titration 70.289 176.32 Amount Heparin Sod,Pork in 0.45% 70.289 176.32 NaCl 25,000 unit In 0.45 % NaCl 1 250ml.bag @ 12 UNITS/KG/HR 9.52 mls/hr IV .Q24H [facility] Rx#: [id number] Oral 118 Other: Voiding Method Toilet Toilet # Voids 1 1 12/07/18 07:40 12/07/18 07:40
--- NOTE | 2018-12-08 10:55 | P.PN ---
Subjective Patient resting in bed states she has intermittent slight chest pressure. Patient has been evaluated by cardiology on there is a plan for a stress echo. Diagnosed with atypical chest pain troponins negative 3 Objective - Vital Signs Vital signs: Vital Signs Temp 97.9 F 12/08/18 07:21 Pulse 73 12/08/18 08:00 Resp 18 12/08/18 08:00 BP 123/80 12/08/18 07:21 Pulse Ox 99 12/08/18 07:27 Intake & Output 12/07/18 12/08/18 12/08/18 18:59 06:59 18:59 Intake Total 428.289 176.32 0 Balance 428.289 176.32 0 Weight 79.379 kg Intake: Intake, IV Titration 70.289 176.32 Amount Heparin Sod,Pork in 0.45% 70.289 176.32 NaCl 25,000 unit In 0.45 % NaCl 1 250ml.bag @ 12 UNITS/KG/HR 9.52 mls/hr IV .Q24H [facility] Rx#: [id number] Oral 358 0 Other: Voiding Method Toilet Toilet Toilet # Voids 1 1 2 - Constitutional General appearance: Present: mild distress - EENT Eyes: Present: PERRLA Ears: bilateral: normal - Neck Neck: Present: normal ROM - Respiratory Respiratory: left: wheezing - Cardiovascular Rhythm: regular - Gastrointestinal General gastrointestinal: Present: soft - Integumentary Integumentary: Present: normal - Neurologic Neurologic: Present: CNII-XII intact - Musculoskeletal Musculoskeletal: Present: gait normal - Psychiatric Psychiatric: Present: A&O x's 3, appropriate affect, intact judgment & insight - Labs CBC & Chem 7: 12/08/18 07:49 12/07/18 07:40 Labs: Abnormal Lab Results - Last 24 Hours (Table) 12/07/18 12/07/18 12/08/18 Range/Units 15:50 23:15 07:49 APTT 37.5 H 59.7 H (22.0-30.0) sec Cholesterol 226 H (<200) mg/dL LDL Cholesterol, Calc 138 H (0-99) mg/dL HDL Cholesterol 66 H (40-60) mg/dL - Imaging and Cardiology Chest x-ray: report reviewed Assessment and Plan Plan: Assessment Atypical chest pain troponins negative 3 History of SVT Fibromyalgia Hyperlipidemia Plan Continue consultation with cardiology scheduled for a stress test
[2018-12-08 11:06] VITALS: BMI 30.9
[2018-12-08] MEDS: ASPIRIN 325 MG TAB PO SCH (12:18)
--- NOTE | 2018-12-08 16:43 | US ---
EXAMINATION TYPE: US abdomen complete DATE OF EXAM: 12/08/2018 COMPARISON: NONE CLINICAL HISTORY: nausea. EXAM MEASUREMENTS: Liver Length: 14.8 cm Gallbladder Wall: 0.2 cm CBD: 0.3 cm Spleen: 8.6 cm Right Kidney: 10.0 x 4.1 x 5.0 cm Left Kidney: 9.8 x 5.0 x 4.8 cm Pancreas: Tail obscured by overlying bowel gas Liver: wnl Gallbladder: wnl Evidence for sonographic Simpson's sign: No CBD: wnl Spleen: limited visualization Right Kidney: wnl Left Kidney: wnl Upper IVC: wnl Abd Aorta: bifurcation obscured by bowel gas, portions visualized wnl The liver is homogenous. The intrahepatic portion of the IVC and proximal abdominal aorta are within normal limits. There is no evidence of cholelithiasis. Common bile duct is unremarkable. The visu alized portions of the pancreas are homogenous. The spleen is unremarkable. Kidneys are symmetric a nd free of hydronephrosis. No renal lesions are seen. IMPRESSION: Negative complete abdominal sonogram. No gallstones or dilated ducts.
[2018-12-08] MEDS ORDERED: ONDANSETRON 4 MG/2 ML VIAL IVP PRN (20:15)
[2018-12-08] MEDS: VENLAFAXINE HCL ER 75 MG CAP PO SCH (20:21)
[2018-12-08] MEDS: traMADol 50 MG TAB PO PRN (20:22)
[2018-12-09] MEDS: ASPIRIN 325 MG TAB PO SCH (08:35)
[2018-12-09] MEDS: ACETAMINOPHEN TAB 325 MG TAB PO PRN (08:35)
[2018-12-09] MEDS: traMADol 50 MG TAB PO PRN (11:34)
--- NOTE | 2018-12-09 11:47 | P.PN ---
Subjective Awaiting recommendations from cardiology for discharge. Continues with nausea and epigastric pain abdominal ultrasound ordered HIDA scan. Hopeful discharge soon with recommendations of cardiology Objective - Vital Signs Vital signs: Vital Signs Temp 98.4 F 12/09/18 11:28 Pulse 82 12/09/18 11:28 Resp 18 12/09/18 11:28 BP 128/85 12/09/18 11:28 Pulse Ox 99 12/09/18 11:28 Intake & Output 12/08/18 12/09/18 12/09/18 18:59 06:59 18:59 Intake Total 820 440 Balance 820 440 Weight 79.379 kg Intake: Oral 620 240 Other 200 200 Other: Voiding Method Toilet Toilet Toilet # Voids 2 1 - Constitutional General appearance: Present: mild distress - EENT Eyes: Present: PERRLA Ears: bilateral: normal - Neck Neck: Present: normal ROM - Respiratory Respiratory: bilateral: CTA - Cardiovascular Rhythm: regular - Gastrointestinal General gastrointestinal: Present: soft Localized gastrointestinal: tender: epigastric periumbilical - Integumentary Integumentary: Present: normal - Neurologic Neurologic: Present: CNII-XII intact - Musculoskeletal Musculoskeletal: Present: gait normal - Psychiatric Psychiatric: Present: A&O x's 3, appropriate affect, intact judgment & insight - Labs CBC & Chem 7: 12/08/18 07:49 12/07/18 07:40 - Imaging and Cardiology US - abdomen: report reviewed Assessment and Plan Plan: Assessment Atypical chest pain troponins negative 3 Epigastric pain with nausea History of SVT Fibromyalgia Hyperlipidemia Plan Awaiting results from stress testing cardiology recommendations for discharge HIDA scan ordered
--- NOTE | 2018-12-09 13:33 | ECHOS ---
STRESS ECHOCARDIOGRAM DATE OF SERVICE: 12/08/2018 INDICATIONS: Chest pain. MEDICATIONS: BASELINE HEART RATE: 59 BASELINE BLOOD PRESSURE: 138/86 MAXIMUM HEART RATE: 169 MAXIMUM BLOOD PRESSURE: 199/92 85% MPHR: 153 100% MPHR: 180 METS: 11.1 MAXIMUM STAGE REACHED: III TOTAL EXERCISE TIME: 9 minutes 48 seconds CLINICAL INFORMATION: STRESS DATA: Pretesting physical examination showed a heart rate of 59, pressure is 138/86 mmHg. Baseline EKG showed sinus mechanism. The patient exercised on the treadmill according to Daniel protocol for a total of 9 minutes and 48 seconds and achieved 11.1 METs. The max heart rate was 169, which is about 93% of maximum predicted heart rate. Maximum blood pressure was 199/92 mmHg. Clinically the patient did not have any symptoms of chest pain or discomfort and the EKG did not show any significant ST or T-wave abnormalities concerning for ischemia. ECHOCARDIOGRAM IMAGES: On echocardiogram images from parasternal long axis view, parasternal short axis view, apical 4 chamber and apical 2 chamber view were obtained as the baseline images, at the peak of the heart rate, as well as on recovery and the echo showed normal in the left ventricular systolic function without any evidence of wall motion abnormalities concerning for ischemia. CONCLUSION: 1. Excellent exercise tolerance. 2. Normal EKG in response to exercise. 3. Normal echocardiogram in response to exercise. 4. Essentially normal stress echocardiogram. MMODL / IJN: [id number] /
--- NOTE | 2018-12-09 13:47 | NM ---
Nuclear medicine hepatobiliary scan. HISTORY: Pain. DOSAGE: The patient received 1.6 micrograms of CCK and 3.0 mCi of Technetium 99m Choletec. FINDINGS: There is normal hepatic extraction. The gallbladder is seen by 10 minutes. There is bilia ry to bowel clearance by 40 minutes. Ejection fraction is 89%. IMPRESSION: 1. Ejection fraction of 89% which can occasionally be associated with hyperdynamic gallbladder. Corre late clinically.
[2018-12-09 15:22] VITALS: BP 119/80; PULSE 80; TEMP 97.8
--- NOTE | 2018-12-09 16:17 | P.DS ---
Providers Date of admission: 12/07/18 09:19 Expected date of discharge: 12/09/18 Attending physician: Tomi Brizuela Consults: 12/07/18 09:09 Consult Physician Urgent Consulting Provider: Silvano Morataya Consult Reason/Comments: chest pain Do you want consulting provider notified?: Yes Primary care physician: Tomi Brizuela [facility] Course: 38-year-old female was meant to the emergency room with complaints of intermittent chest pain since June. Was evaluated by cardiology negative for acute ischemia. Patient continued with epigastric pain abdominal ultrasound and HIDA scan done. Found to have hyperactive gallbladder will be referred to gastroenterology Assessment Chest pain atypical troponins negative 3 negative stress test Epigastric pain hyperactive gallbladder History of SVT Fibromyalgia Hyperlipidemia Plan Follow up with family physician Dr. Tomi Brizuela and cardiology Patient Condition at Discharge: Stable Plan - Discharge Summary Discharge Rx Participant: No New Discharge Prescriptions: New Ondansetron [Zofran] 4 mg PO Q8HR PRN 3 Days #12 tab NS MDD 3 tab PRN Reason: Nausea No Action Venlafaxine HCl [Effexor XR] 225 mg PO HS LORazepam [Ativan] 0.5 mg PO DAILY PRN PRN Reason: Anxiety Discharge Medication List LORazepam [Ativan] 0.5 mg PO DAILY PRN 12/07/18 [History] Venlafaxine HCl [Effexor XR] 225 mg PO HS 12/07/18 [History] Ondansetron [Zofran] 4 mg PO Q8HR PRN 3 Days #12 tab NS MDD 3 tab 12/09/18 [Rx] Follow up Appointment(s)/Referral(s): Tomi Brizuela MD [Primary Care Provider] - 1-2 days Silvano Morataya MD [STAFF PHYSICIAN] - 6 Weeks (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 Marissa is office contact for event monitor. ) Discharge Disposition: HOME SELF-CARE
== END 2018-12-09 16:40 | disposition home or self-care (01) ==
LOC: EC 07:03 → 1SOBS 09:19
PROVIDERS: ADMIT Family Medicine; ATTEND Family Medicine
DX: R07.89 Other chest pain (principal); K82.9 Disease of gallbladder, unspecified; R55 Syncope and collapse; R42 Dizziness and giddiness; E78.5 Hyperlipidemia, unspecified; M79.7 Fibromyalgia; R00.2 Palpitations; F41.9 Anxiety disorder, unspecified; F32.9 Major depressive disorder, single episode, unspecified; F17.200 Nicotine dependence, unspecified, uncomplicated; E78.00 Pure hypercholesterolemia, unspecified; E66.9 Obesity, unspecified; Z68.31 Body mass index [BMI] 31.0-31.9, adult; Z79.899 Other long term (current) drug therapy; Z98.51 Tubal ligation status; Z86.79 Personal history of other diseases of the circulatory system; Z87.09 Personal history of other diseases of the respiratory system; Z83.3 Family history of diabetes mellitus; Z82.49 Family history of ischemic heart disease and other diseases of the circulatory system
CPT/HCPCS: 96366 ×2; 96376 ×2; 96365; 99285; 36415; 93005; 93306; 93351; 85379; 80061; 80053; 84443; 83690; 83735; 84484; 85025; 85049; 85610; 85730; 71046; 76700; 78227; G0378 ×3; A9537; J1644 ×3; J2805

== ENCOUNTER 2018-12-22 10:49 | Day surgery (SDC) | payer BC ==
[2018-12-18 09:53] VITALS: BMI 30.9
[~2018-12-22 10:49] MED LIST: LACTATED RINGERS 1,000 ML IV SCH
[2018-12-22 11:43] VITALS: TEMP 97.4
[2018-12-22] MEDS ORDERED: LIDOCAINE 1% 20 ML VIAL (10MG/ML) FOR IV START INTRADERMA ONE (11:57)
[2018-12-22] MEDS ORDERED: LIDOCAINE 1% INJ 10MG/ML (20 ML MDV) ONE (12:57)
[2018-12-22] MEDS ORDERED: PROPOFOL 10 MG/ML 20 ML VIAL IV ONE (12:57)
[2018-12-22 13:46] VITALS: BP 123/84; PULSE 67; RESP 16
--- NOTE | 2018-12-22 14:04 | P.PCN ---
Date of Procedure: 12/22/18 Procedure(s) Performed: Procedure: Esophagogastroduodenoscopy and biopsy. Preoperative diagnosis: Nausea and atypical chest pain. Postoperative diagnosis: 1. Small sliding hiatal hernia with no obvious esophagitis or complicated reflux disease. 2. Mild antral gastritis. 3. Multiple biopsies obtained from the duodenum, antrum and esophagus. Preparation and sedation: Was provided by anesthesia. Brief clinical history: The patient is a 38-year-old female who was evaluated in the office earlier this month regarding nausea, heartburn and abdominal and atypical chest pain. The patient had an ultrasound of the gallbladder which was normal and a stress test which was normal. Her nausea and heartburn has and going on for the last 6 months or so. She has lost 15-20 pounds in the last 6 months. She was provided on Nexium without had. This evaluation is to assess for neoplasia, complicated reflux or other pathology. Procedure: With the patient on her left lateral decubitus position and after informed consent and adequate sedation, I passed the Olympus-GIF H 190L video upper endoscope through the cricopharyngeus down the esophagus. GE junction was around 36 cm from the incisors and there was a small hiatal hernia but no definite esophagitis or complicated reflux disease. The endoscope was then passed into the stomach which was insufflated with air and inspected in detail including the retroflex view in the cardia. There was some mottling and erythema in the antrum but no ulcers or erosions. Pyloric channel, duodenal bulb, post bulbar area and descending duodenum appeared within normal limits. Because of her symptoms, I obtained biopsies from the duodenum, antrum and esophagus then the endoscope was withdrawn. The patient tolerated the procedure well. Plan: The patient was reassured. Will await biopsy results and make further plans based on her course and biopsy results. She will follow-up with you as planned and I will keep you updated on her progress.
== END 2018-12-22 13:53 | disposition home or self-care (01) ==
LOC: ORWHC2ENDO 10:49
DX: K29.50 Unspecified chronic gastritis without bleeding (principal); K20.0 Eosinophilic esophagitis; K21.9 Gastro-esophageal reflux disease without esophagitis; K44.9 Diaphragmatic hernia without obstruction or gangrene; E78.5 Hyperlipidemia, unspecified; F17.210 Nicotine dependence, cigarettes, uncomplicated; M79.7 Fibromyalgia; Z79.899 Other long term (current) drug therapy
CPT/HCPCS: 81025; 88305; 43239; J2001; J2704

== ENCOUNTER 2019-09-02 07:26 | Observation (INO) | payer BC, OTHER ==
[2019-09-02] MEDS ORDERED: ONDANSETRON 4 MG/2 ML VIAL IVP STA (07:59)
[2019-09-02] MEDS ORDERED: SODIUM CHLORIDE 0.9% 2,000 ML IV STA (07:59)
[2019-09-02 09:05] LABS: Basophils # (A) 0.3 k/uL (0-0.2); Basophils % (A) 3 %; Eosinophils # (A) 0.2 k/uL (0-0.7); Eosinophils % (A) 2 %; HCT 36.3 % (34.0-46.0); HGB 12.4 gm/dL (11.4-16.0); Lymphocytes # (A) 1.2 k/uL (1.0-4.8); Lymphocytes % (A) 10 %; MCH 28.5 pg (25.0-35.0); MCHC 34.2 g/dL (31.0-37.0); MCV 83.4 fL (80.0-100.0); Mean Platelet Volume 6.4; Monocytes % (A) 8 %; Neutrophils # (A) 8.9 k/uL (1.3-7.7); Neutrophils % (A) 76 %; Platelet Count 364 k/uL (150-450); RBC 4.35 m/uL (3.80-5.40); RDW 13.3 % (11.5-15.5); WBC 11.7 k/uL (3.8-10.6)
[2019-09-02 09:08] LABS: Appearance,Urine Clear (Clear); Bilirubin,Urine Negative (Negative); Blood,Urine Negative (Negative); Color,Urine Yellow; Glucose,Urine (UA) Negative (Negative); Ketones,Urine Negative (Negative); Leukocyte Esterase,Urine Negative (Negative); Nitrite,Urine Negative (Negative); PH, Urine 5.5 (5.0-8.0); Protein,Urine Negative (Negative); Specific Gravity,Urine 1.009 (1.001-1.035); Urobilinogen,Urine <2.0 mg/dL (<2.0)
[2019-09-02 09:16] LABS: ALT 27 U/L (9-52); AST 18 U/L (14-36); African American GFR (CKD) >90 (>60 ml/min/1.73 sqM); Albumin 3.5 g/dL (3.5-5.0); Alkaline Phosphatase 105 U/L (38-126); Anion Gap 8 mmol/L; Blood Urea Nitrogen 11 mg/dL (7-17); Calcium 10.4 mg/dL (8.4-10.2); Carbon Dioxide 27 mmol/L (22-30); Chloride 107 mmol/L (98-107); Creatine Kinase 31 U/L (30-135); Glucose 103 mg/dL (74-99); Non-African American GFR(CKD) >90 (>60 ml/min/1.73 sqM); Potassium 3.1 mmol/L (3.5-5.1); Sodium 142 mmol/L (137-145); Total Bilirubin 0.4 mg/dL (0.2-1.3); Total Protein 6.5 g/dL (6.3-8.2)
--- NOTE | 2019-09-02 10:15 | CT ---
EXAMINATION TYPE: CT abdomen pelvis w con DATE OF EXAM: 09/02/2019 COMPARISON: NONE HISTORY: 38 year-old female with abdominal pain, diarrhea, back pain TECHNIQUE: Contiguous axial scanning of the abdomen and pelvis following administration of 100 ml Iso calista 300 IV contrast. Delayed images through the kidneys and coronal/sagittal reconstructions perform ed. CT DLP: 1249.1 mGycm Automated exposure control for dose reduction was used. FINDINGS: Heart normal size without pericardial effusion. Lung bases clear without pleural effusion. There is a tiny 2.2 x 1.2 cm hypodensity in the peripheral right hepatic dome. No other focal liver l esion. No biliary ductal dilatation. Portal venous system is patent. Gallbladder, adrenal glands, kidneys, spleen with hilar splenule, and pancreas appear within normal l imits. No dilated small bowel. Normal appendix is visualized. Some prominent fluid within the cecum which hangs low in the pelvis. Diverticulosis at the rectosigmoid junction and the proximal to mid sigmoid colon. There is moderate wall thickening and surrounding inflammatory fat stranding with numerous small foci of extraluminal a ir adjacent to the proximal sigmoid. Bladder partially distended. Uterus is retroverted. Right ovary is visualized. Left ovary not poorly delineated. No abnormal fluid collection in the pelvis or pelvic lymphadenopathy. Bones: No osseous destructive process. IMPRESSION: 1. EXAM POSITIVE FOR ACUTE SIGMOID DIVERTICULITIS WITH MODERATE SURROUNDING INFLAMMATION. THERE IS A SMALL LOCALIZED PERFORATION WITH A FEW ADJACENT FOCI OF EXTRALUMINAL AIR. NO ABSCESS FORMATION. 2. SMALL 2.2 X 1.2 CM HYPODENSITY PERIPHERAL RIGHT HEPATIC DOME IS NONSPECIFIC. RECOMMEND ULTRASOUND TO ATTEMPT VISUALIZATION AND SUBSEQUENT FOLLOW-UP. IF NOT SEEN BY ULTRASOUND, CT FOLLOW-UP IN 3 MONTH S WILL BE RECOMMENDED. A SMALL EARLY LIVER ABSCESS IS A DIFFERENTIAL CONSIDERATION.
[2019-09-02] MEDS ORDERED: POTASSIUM CHLORIDE ER 20 MEQ TAB.ER PO STA (10:26)
[2019-09-02] MEDS ORDERED: PIPERACILLIN-TAZOBACTAM 3.375 GM in SODIUM CHLORIDE 0.9% 100 ML IVPB STA (10:29)
--- NOTE | 2019-09-02 10:43 | ED ---
General Adult HPI - General Chief complaint: Arrhythmia/Palpitations Stated complaint: chest pain Time Seen by Provider: 09/02/19 07:30 Source: patient Mode of arrival: wheelchair Limitations: no limitations - History of Present Illness Initial comments: The patient is a 38-year-old female past medical history of fibromyalgia and SVT who presents to the emergency Department with complaint of palpitations and generalized weakness. She states that since Friday she has been nauseated with diffuse body aches and chills. She was recently on clindamycin for axillary cellulitis through her primary care office. States that she finished the medication and afterwards developed diarrhea. She describes it as loose and sticky. Denies any melanotic stools or hematochezia. She has had associated generalized abdominal pain. She did have an episode of vomiting today. Denies any dysuria, hematuria or difficulty voiding. The patient continues to have menstrual cycles last of which was 2 weeks ago. Denies any abnormal vaginal bleeding or discharge. No concern for sexually transmitted infections. No recent sick contacts or travel. Denies recordable fevers. No chest pain, shortness of breath or cough. There are no other alleviating, precipitating or modifying factors - Related Data Home Medications Medication Instructions Recorded Confirmed Ibuprofen [Motrin Ib] 400 - 800 mg PO Q6H PRN 09/02/19 09/02/19 Omeprazole Magnesium [PriLOSEC OTC] 20 mg PO HS 09/02/19 09/02/19 Previous Rx's Medication Instructions Recorded Butalb/APAP/Caff 50-325-40Mg 1 each PO Q4HR PRN #10 tab 09/03/19 [Fioricet 50-325-40] Ciprofloxacin HCl [Cipro] 500 mg PO BID #28 tab 09/03/19 metroNIDAZOLE [Flagyl] 500 mg PO TID #42 tab 09/03/19 Allergies Allergy/AdvReac Type Severity Reaction Status Date / Time No Known Allergies Allergy Verified 09/02/19 10:22 Review of Systems ROS Statement: Those systems with pertinent positive or pertinent negative responses have been documented in the HPI. ROS Other: All systems not noted in ROS Statement are negative. Past Medical History Past Medical History: Fibromyalgia, GERD/Reflux, Hyperlipidemia Additional Past Medical History / Comment(s): Mildly elevated cholesterol-no RX yet, pt states she has had nausea past few months and the cause is unknown/she has lost 20 pounds over the past few months, has event monitor for palpitations, migraines in past, "over active gallbladder", History of Any Multi-Drug Resistant Organisms: None Reported Past Surgical History: Breast Surgery, Section, Orthopedic Surgery, Tubal Ligation Additional Past Surgical History / Comment(s): right knee arthroscopy, bilateral breast reduction, x 3, EGD Past Anesthesia/Blood Transfusion Reactions: No Reported Reaction Past Psychological History: Anxiety Smoking Status: Current every day smoker - Past Family History Father Family Medical History: No Reported History Mother Family Medical History: No Reported History Additional Family Medical History / Comment(s): . General Exam Limitations: no limitations General appearance: alert, anxious Head exam: Present: atraumatic, normocephalic Eye exam: Present: normal appearance, PERRL, EOMI ENT exam: Present: normal exam, mucous membranes moist Neck exam: Present: normal inspection. Absent: tenderness, meningismus Respiratory exam: Present: normal lung sounds bilaterally. Absent: respiratory distress, wheezes, rales, rhonchi Cardiovascular Exam: Present: normal rhythm, tachycardia GI/Abdominal exam: Present: soft, tenderness (right lower quadrant. No peritoneal signs. ). Absent: guarding, rebound, rigid Rectal exam: Present: normal inspection, normal rectal tone, heme (-) stool Extremities exam: Present: normal inspection, full ROM Back exam: Present: normal inspection, full ROM. Absent: tenderness Neurological exam: Present: alert, oriented X3 Psychiatric exam: Present: normal affect, normal mood Skin exam: Present: warm, intact, diaphoretic Course Vital Signs 09/02/19 09/02/19 09/02/19 07:28 08:31 09:00 Temperature 98.7 F Pulse Rate 127 H 95 82 Respiratory 18 18 18 Rate Blood Pressure 144/82 126/91 120/91 O2 Sat by Pulse 99 96 96 Oximetry 09/02/19 09/02/19 09/02/19 10:00 11:35 11:45 Temperature 97.8 F 98 F Pulse Rate 87 82 Respiratory 20 18 Rate Blood Pressure 111/67 115/70 O2 Sat by Pulse 95 98 Oximetry EKG Findings - EKG Comments: EKG Findings:: EKG demonstrates a normal sinus rhythm with ventricular rate of 83. VT interval 146. QRS 94. QTC 427. No acute ST segment elevations or depressions concerning for ischemic changes. T-wave inversions in V1 through V3 Procedures - Stool Hemoccult Hemoccult result: negative Medical Decision Making - Medical Decision Making Upon arrival the patient is placed in room 7. A thorough history and physical exam is performed. I did obtain IV access and the patient was given 4 mg of Zofran and and 2 L bolus of normal saline. A 12-lead EKG was performed. I did recommend laboratory studies and a CT of the patient's abdomen and pelvis. I also recommended stool studies and a urinalysis. Review the patient's labs demonstrated white blood cell count of 11.7. Potassium is low at 3.1. Urina lysis is negative. I did replace the patient's potassium. Abdomen and pelvis CT demonstrate acute sigmoid diverticulitis with moderate surrounding inflammation. A small localized perforation with few adjacent foci of extraluminal air. No abscess formation. Also a 2.2 x 1.2 hypodensity peripheral right hepatic dome. I discussed this with the patient. I did obtain blood cultures and initiated the patient on Zosyn. I did order morphine for pain control. I recommended hospital admission for which the patient did agree. I called and discussed the case with Dr. Brizuela who accepted did admission. He requested I place Dr. Padron on consult. Patient was transferred to the floor in stable condition - Lab Data Result diagrams: 09/03/19 06:39 09/03/19 06:39 Lab Results 09/02/19 09/02/19 09/02/19 Range/Units 08:55 08:55 08:55 WBC 11.7 H (3.8-10.6) k/uL RBC 4.35 (3.80-5.40) m/uL Hgb 12.4 (11.4-16.0) gm/dL Hct 36.3 (34.0-46.0) % MCV 83.4 (80.0-100.0) fL MCH 28.5 (25.0-35.0) pg MCHC 34.2 (31.0-37.0) g/dL RDW 13.3 (11.5-15.5) % Plt Count 364 (150-450) k/uL Neutrophils % 76 % Lymphocytes % 10 % Monocytes % 8 % Eosinophils % 2 % Basophils % 3 % Neutrophils # 8.9 H (1.3-7.7) k/uL Lymphocytes # 1.2 (1.0-4.8) k/uL Monocytes # 1.0 (0-1.0) k/uL Eosinophils # 0.2 (0-0.7) k/uL Basophils # 0.3 H (0-0.2) k/uL Sodium 142 (137-145) mmol/L Potassium 3.1 L (3.5-5.1) mmol/L Chloride 107 (98-107) mmol/L Carbon Dioxide 27 (22-30) mmol/L Anion Gap 8 mmol/L BUN 11 (7-17) mg/dL Creatinine 0.81 (0.52-1.04) mg/dL Est GFR (CKD-EPI)AfAm >90 (>60 ml/min/1.73 sqM) Est GFR (CKD-EPI)NonAf >90 (>60 ml/min/1.73 sqM) Glucose 103 H (74-99) mg/dL Plasma Lactic Acid Brian 1.2 (0.7-2.0) mmol/L Calcium 10.4 H (8.4-10.2) mg/dL Magnesium (1.6-2.3) mg/dL Total Bilirubin 0.4 (0.2-1.3) mg/dL AST 18 (14-36) U/L ALT 27 (9-52) U/L Alkaline Phosphatase 105 (38-126) U/L Creatine Kinase 31 (30-135) U/L Total Protein 6.5 (6.3-8.2) g/dL Albumin 3.5 (3.5-5.0) g/dL Lipase 74 (23-300) U/L Urine Color Urine Appearance (Clear) Urine pH (5.0-8.0) Ur Specific [place] (1.001-1.035) Urine Protein (Negative) Urine Glucose (UA) (Negative) Urine Ketones (Negative) Urine Blood (Negative) Urine Nitrite (Negative) Urine Bilirubin (Negative) Urine Urobilinogen (<2.0) mg/dL Ur Leukocyte Esterase (Negative) Urine HCG, Qual (Not Detectd) Stool Occult Blood (Negative) Stool Lactoferrin (NEGATIVE) 09/02/19 09/02/19 09/02/19 Range/Units 08:55 08:55 08:55 WBC (3.8-10.6) k/uL RBC (3.80-5.40) m/uL Hgb (11.4-16.0) gm/dL Hct (34.0-46.0) % MCV (80.0-100.0) fL MCH (25.0-35.0) pg MCHC (31.0-37.0) g/dL RDW (11.5-15.5) % Plt Count (150-450) k/uL Neutrophils % % Lymphocytes % % Monocytes % % Eosinophils % % Basophils % % Neutrophils # (1.3-7.7) k/uL Lymphocytes # (1.0-4.8) k/uL Monocytes # (0-1.0) k/uL Eosinophils # (0-0.7) k/uL Basophils # (0-0.2) k/uL Sodium (137-145) mmol/L Potassium (3.5-5.1) mmol/L Chloride (98-107) mmol/L Carbon Dioxide (22-30) mmol/L Anion Gap mmol/L BUN (7-17) mg/dL Creatinine (0.52-1.04) mg/dL Est GFR (CKD-EPI)AfAm (>60 ml/min/1.73 sqM) Est GFR (CKD-EPI)NonAf (>60 ml/min/1.73 sqM) Glucose (74-99) mg/dL Plasma Lactic Acid Brian (0.7-2.0) mmol/L Calcium (8.4-10.2) mg/dL Magnesium 1.9 (1.6-2.3) mg/dL Total Bilirubin (0.2-1.3) mg/dL AST (14-36) U/L ALT (9-52) U/L Alkaline Phosphatase (38-126) U/L Creatine Kinase (30-135) U/L Total Protein (6.3-8.2) g/dL Albumin (3.5-5.0) g/dL Lipase (23-300) U/L Urine Color Yellow Urine Appearance Clear (Clear) Urine pH 5.5 (5.0-8.0) Ur Specific [place] 1.009 (1.001-1.035) Urine Protein Negative (Negative) Urine Glucose (UA) Negative (Negative) Urine Ketones Negative (Negative) Urine Blood Negative (Negative) Urine Nitrite Negative (Negative) Urine Bilirubin Negative (Negative) Urine Urobilinogen <2.0 (<2.0) mg/dL Ur Leukocyte Esterase Negative (Negative) Urine HCG, Qual Not Detected (Not Detectd) Stool Occult Blood (Negative) Stool Lactoferrin (NEGATIVE) 09/02/19 09/02/19 Range/Units 10:15 10:15 WBC (3.8-10.6) k/uL RBC (3.80-5.40) m/uL Hgb (11.4-16.0) gm/dL Hct (34.0-46.0) % MCV (80.0-100.0) fL MCH (25.0-35.0) pg MCHC (31.0-37.0) g/dL RDW (11.5-15.5) % Plt Count (150-450) k/uL Neutrophils % % Lymphocytes % % Monocytes % % Eosinophils % % Basophils % % Neutrophils # (1.3-7.7) k/uL Lymphocytes # (1.0-4.8) k/uL Monocytes # (0-1.0) k/uL Eosinophils # (0-0.7) k/uL Basophils # (0-0.2) k/uL Sodium (137-145) mmol/L Potassium (3.5-5.1) mmol/L Chloride (98-107) mmol/L Carbon Dioxide (22-30) mmol/L Anion Gap mmol/L BUN (7-17) mg/dL Creatinine (0.52-1.04) mg/dL Est GFR (CKD-EPI)AfAm (>60 ml/min/1.73 sqM) Est GFR (CKD-EPI)NonAf (>60 ml/min/1.73 sqM) Glucose (74-99) mg/dL Plasma Lactic Acid Brian (0.7-2.0) mmol/L Calcium (8.4-10.2) mg/dL Magnesium (1.6-2.3) mg/dL Total Bilirubin (0.2-1.3) mg/dL AST (14-36) U/L ALT (9-52) U/L Alkaline Phosphatase (38-126) U/L Creatine Kinase (30-135) U/L Total Protein (6.3-8.2) g/dL Albumin (3.5-5.0) g/dL Lipase (23-300) U/L Urine Color Urine Appearance (Clear) Urine pH (5.0-8.0) Ur Specific [place] (1.001-1.035) Urine Protein (Negative) Urine Glucose (UA) (Negative) Urine Ketones (Negative) Urine Blood (Negative) Urine Nitrite (Negative) Urine Bilirubin (Negative) Urine Urobilinogen (<2.0) mg/dL Ur Leukocyte Esterase (Negative) Urine HCG, Qual (Not Detectd) Stool Occult Blood Negative (Negative) Stool Lactoferrin POSITIVE H (NEGATIVE) Disposition Clinical Impression: Acute diverticulitis, Perforated diverticulum, Nausea and vomiting Disposition: ADMITTED IP TO THIS [facility] Condition: Stable Is patient prescribed a controlled substance at d/c from ED?: No Decision to Admit Reason: Admit from EC Decision Date: 09/02/19 Decision Time: 10:44
[2019-09-02] MEDS ORDERED: NALOXONE 0.4 MG/ML 1 ML VIAL IV PRN (11:11)
[2019-09-02] MEDS ORDERED: ONDANSETRON 4 MG/2 ML VIAL IVP PRN (11:11)
[2019-09-02] MEDS: SODIUM CHLORIDE 0.9% 1,000 ML IV SCH ×2 (11:19→20:19)
[2019-09-02] MEDS: MORPHINE SULFATE 4 MG/ML SYRINGE IVP PRN ×3 (11:32→20:15)
[2019-09-02 11:53] VITALS: BMI 33.7
[2019-09-02] MEDS ORDERED: PNEUMOCOCCAL VACC-PNEUMOVAX 23 25 MCG/0.5 ML VIAL IM ONE (11:55)
[2019-09-02] MEDS ORDERED: INFLUENZA VACCINE (6 MOS+) 60 MCG/0.5 ML SYRINGE IM ONE (11:56)
--- NOTE | 2019-09-02 12:51 | P.HPIM ---
History of Present Illness 38-year-old female presented to the emergency room with complaints of abdominal pain area patient has had pain for 6 days with diarrhea bodyaches and chills. Patient does have a history of fibromyalgia GERD and hyperlipidemia healthy otherwise Review of Systems Constitutional: Reports malaise Gastrointestinal: Reports abdominal pain, Reports diarrhea, Reports loss of appetite Past Medical History Past Medical History: Chest Pain / Angina, Fibromyalgia, GERD/Reflux, Hyperlipidemia, Supraventricular Tachycardia (SVT) Additional Past Medical History / Comment(s): Mildly elevated cholesterol-no RX yet, palpitations, occasional nausea, migraines in past, "over active gallbladder", History of Any Multi-Drug Resistant Organisms: None Reported Past Surgical History: Breast Surgery, Section, Orthopedic Surgery, Tubal Ligation Additional Past Surgical History / Comment(s): right knee arthroscopy, bilateral breast reduction, x 3, EGD Past Anesthesia/Blood Transfusion Reactions: No Reported Reaction Smoking Status: Current every day smoker - Past Family History Father Family Medical History: No Reported History Additional Family Medical History / Comment(s): Father is healthy Mother Family Medical History: No Reported History Additional Family Medical History / Comment(s): Mother is healthy Medications and Allergies Home Medications Medication Instructions Recorded Confirmed Type Ibuprofen [Motrin Ib] 400 - 800 mg PO Q6H PRN 09/02/19 09/02/19 History Omeprazole Magnesium [PriLOSEC OTC] 20 mg PO HS 09/02/19 09/02/19 History Allergies Allergy/AdvReac Type Severity Reaction Status Date / Time No Known Allergies Allergy Verified 09/02/19 10:22 Physical Exam Vitals: Vital Signs Temp Pulse Resp BP Pulse Ox 09/02/19 11:45 98 F 09/02/19 11:35 97.8 F 82 18 115/70 98 09/02/19 10:00 87 20 111/67 95 09/02/19 09:00 82 18 120/91 96 09/02/19 08:31 95 18 126/91 96 09/02/19 07:28 98.7 F 127 H 18 144/82 99 Intake and Output 09/01/19 09/02/19 09/02/19 22:59 06:59 14:59 Other: Voiding Method Toilet # Voids 1 Weight 86.364 kg - Constitutional General appearance: mild distress - EENT Eyes: PERRLA Ears: bilateral: normal - Neck Neck: normal ROM - Respiratory Respiratory: bilateral: CTA - Cardiovascular Rhythm: regular - Gastrointestinal General gastrointestinal: decreased bowel sounds, soft - Integumentary Integumentary: normal - Neurologic Neurologic: CNII-XII intact - Musculoskeletal Musculoskeletal: gait normal - Psychiatric Psychiatric: A&O x's 3, appropriate affect, intact judgment & insight Results CBC & Chem 7: 09/02/19 08:55 09/02/19 08:55 Labs: Abnormal Lab Results - Last 24 Hours (Table) 09/02/19 09/02/19 Range/Units 08:55 08:55 WBC 11.7 H (3.8-10.6) k/uL Neutrophils # 8.9 H (1.3-7.7) k/uL Basophils # 0.3 H (0-0.2) k/uL Potassium 3.1 L (3.5-5.1) mmol/L Glucose 103 H (74-99) mg/dL Calcium 10.4 H (8.4-10.2) mg/dL CT scan - abdomen: report reviewed Thrombosis Risk Factor Assmnt - Choose All That Apply Any of the Below Risk Factors Present?: Yes Each Factor Represents 1 point: Obesity (BMI >25) Other Risk Factors: No Other congenital or acquired thrombophilia - If yes, enter type in comment: No Thrombosis Risk Factor Assessment Total Risk Factor Score: 1 Thrombosis Risk Factor Assessment Level: Low Risk Assessment and Plan Plan: Assessment Abdominal pain and diverticulitis with perforated diverticulum History of fibromyalgia GERD Hyperlipidemia SVT Plan Consultation with surgery Dr. Padron Antibiotics
--- NOTE | 2019-09-02 15:45 | P.GSCN ---
<Amrita Alex - Last Filed: 09/02/19 15:40> History of Present Illness Consult date: 09/02/19 Reason for Consult: Perforated diverticulitis Requesting physician: Hui Pérez History of present illness: CHIEF COMPLAINT: Abdominal pain HISTORY OF PRESENT ILLNESS: 38-year-old female who presented to emergency room with a chief complaint of abdominal pain. Patient reports she has been feeling sick since Friday and thought it was secondary to the flu. She reports yesterday her abdominal pain increased and started going into her back also. Patient denies previous diverticulitis. The patient did have an EGD in December 2018. She reports having a colonoscopy a few years ago however there are no records of that available at this time. PAST MEDICAL HISTORY: See list. PAST SURGICAL HISTORY: See list. MEDICATIONS: See list. ALLERGIES: See list. SOCIAL HISTORY: No illicit drug use. REVIEW OF SYSTEMS: CONSTITUTIONAL: Denies fever or chills. HEENT: Denies blurred vision, vision changes, or eye pain. Denies hemoptysis ENDOCRINE: Denies heat or cold intolerance. CARDIOVASCULAR: Denies chest pain or pressure. RESPIRATORY: No shortness of breath. GASTROINTESTINAL: See HPI for pertinent findings NEURO: Denies history of seizures. PSYCH: No depression or suicidal ideation HEMATOLOGIC: Denies bleeding disorders. LYMPHATIC: The patient denies any lumps and bumps around the neck. GENITOURINARY: Denies any blood in urine or increased urinary frequency. MUSCULOSKELETAL: Denies myalgias. Denies joint swelling. Denies decreased range of motion beyond patients baseline. SKIN: Denies pruitis. Denies rash. PHYSICAL EXAM: VITAL SIGNS: Reviewed GENERAL: Well-developed in no acute distress. HEENT: No sclera icterus. Extraocular movements grossly intact. Moist buccal mucosa. Head is atraumatic, normocephalic. Hears conversational speech. No nasal drainage. NECK: Supple without lymphadenopathy. CHEST: Non-labored respirations and equal bilateral excursions. CARDIOVASCULAR: Regular rate with regular rhythm. Palpable 2+ radial pulses. ABDOMEN: Soft. Nondistended. Pain with palpation of bilateral lower quadrants. No peritonitis MUSCULOSKELETAL: No clubbing, cyanosis or edema. NEUROLOGIC: No focal or lateralizing signs. Cranial nerves II through XII grossly intact. PSYCH: Appropriate affect. Alert and oriented to person, place and time. SKIN: Well perfused. Good skin turgor. LABORATORY DATA: WBC 11.7. Hemoglobin 12.4. Platelet count 364. Sodium 142. Potassium 3.1. BUN 11. Creatinine 0.81. Lactic acid 1.2. IMAGING: CT abdomen and pelvis: Acute sigmoid diverticulitis with moderate surrounding inflammation. There is a small localized perforation with a few adjacent foci of extraluminal air. No abscess formation. ASSESSMENT: 1. Abdominal pain 2. Acute sigmoid diverticulitis with small localized perforation PLAN: NPO except ice chips and popsicles Continue antibiotics. Repeat labs in AM Replace potassium per protocol. Check magnesium level No surgical intervention recommended at this time. Continue with conservative management. Nurse practitioner note has been reviewed by physician. Signing provider agrees with the documented findings, assessment, and plan of care. Past Medical History Past Medical History: Chest Pain / Angina, Fibromyalgia, GERD/Reflux, Hyperlipidemia, Supraventricular Tachycardia (SVT) Additional Past Medical History / Comment(s): Mildly elevated cholesterol-no RX yet, palpitations, occasional nausea, migraines in past, "over active gallbladder", History of Any Multi-Drug Resistant Organisms: None Reported Past Surgical History: Breast Surgery, Section, Orthopedic Surgery, Tubal Ligation Additional Past Surgical History / Comment(s): right knee arthroscopy, bilateral breast reduction, x 3, EGD Past Anesthesia/Blood Transfusion Reactions: No Reported Reaction Smoking Status: Current every day smoker - Past Family History Father Family Medical History: No Reported History Additional Family Medical History / Comment(s): Father is healthy Mother Family Medical History: No Reported History Additional Family Medical History / Comment(s): Mother is healthy Medications and Allergies Home Medications Medication Instructions Recorded Confirmed Type Ibuprofen [Motrin Ib] 400 - 800 mg PO Q6H PRN 09/02/19 09/02/19 History Omeprazole Magnesium [PriLOSEC OTC] 20 mg PO HS 09/02/19 09/02/19 History Allergies Allergy/AdvReac Type Severity Reaction Status Date / Time No Known Allergies Allergy Verified 09/02/19 10:22 Surgical - Exam Vital Signs Temp Pulse Resp BP Pulse Ox 98.7 F 127 H 18 144/82 99 09/02/19 07:28 09/02/19 07:28 09/02/19 07:28 09/02/19 07:28 09/02/19 07:28 Results - Labs 09/02/19 08:55 09/02/19 08:55 Abnormal Lab Results - Last 24 Hours (Table) 09/02/19 09/02/19 Range/Units 08:55 08:55 WBC 11.7 H (3.8-10.6) k/uL Neutrophils # 8.9 H (1.3-7.7) k/uL Basophils # 0.3 H (0-0.2) k/uL Potassium 3.1 L (3.5-5.1) mmol/L Glucose 103 H (74-99) mg/dL Calcium 10.4 H (8.4-10.2) mg/dL Diabetes panel 09/02/19 Range/Units 08:55 Sodium 142 (137-145) mmol/L Potassium 3.1 L (3.5-5.1) mmol/L Chloride 107 (98-107) mmol/L Carbon Dioxide 27 (22-30) mmol/L BUN 11 (7-17) mg/dL Creatinine 0.81 (0.52-1.04) mg/dL Glucose 103 H (74-99) mg/dL Calcium 10.4 H (8.4-10.2) mg/dL AST 18 (14-36) U/L ALT 27 (9-52) U/L Alkaline Phosphatase 105 (38-126) U/L Total Protein 6.5 (6.3-8.2) g/dL Albumin 3.5 (3.5-5.0) g/dL Calcium panel 09/02/19 Range/Units 08:55 Calcium 10.4 H (8.4-10.2) mg/dL Albumin 3.5 (3.5-5.0) g/dL Pituitary panel 09/02/19 Range/Units 08:55 Sodium 142 (137-145) mmol/L Potassium 3.1 L (3.5-5.1) mmol/L Chloride 107 (98-107) mmol/L Carbon Dioxide 27 (22-30) mmol/L BUN 11 (7-17) mg/dL Creatinine 0.81 (0.52-1.04) mg/dL Glucose 103 H (74-99) mg/dL Calcium 10.4 H (8.4-10.2) mg/dL Adrenal panel 09/02/19 Range/Units 08:55 Sodium 142 (137-145) mmol/L Potassium 3.1 L (3.5-5.1) mmol/L Chloride 107 (98-107) mmol/L Carbon Dioxide 27 (22-30) mmol/L BUN 11 (7-17) mg/dL Creatinine 0.81 (0.52-1.04) mg/dL Glucose 103 H (74-99) mg/dL Calcium 10.4 H (8.4-10.2) mg/dL Total Bilirubin 0.4 (0.2-1.3) mg/dL AST 18 (14-36) U/L ALT 27 (9-52) U/L Alkaline Phosphatase 105 (38-126) U/L Total Protein 6.5 (6.3-8.2) g/dL Albumin 3.5 (3.5-5.0) g/dL <Luann Bolanos - Last Filed: 09/02/19 17:31> History of Present Illness History of present illness: As above, patient presents with, located diverticulitis secondary to perforation. Recommend IV antibiotics. Criteria for discharge includes resolving white blood cell count, resolved abdominal pain and tolerating diet. May start diet once abdominal pain resolved Surgical - Exam Vital Signs Temp Pulse Resp BP Pulse Ox 98.7 F 127 H 18 144/82 99 09/02/19 07:28 09/02/19 07:28 09/02/19 07:28 09/02/19 07:28 09/02/19 07:28 Results - Labs 09/02/19 08:55 09/02/19 08:55 Abnormal Lab Results - Last 24 Hours (Table) 09/02/19 09/02/19 Range/Units 08:55 08:55 WBC 11.7 H (3.8-10.6) k/uL Neutrophils # 8.9 H (1.3-7.7) k/uL Basophils # 0.3 H (0-0.2) k/uL Potassium 3.1 L (3.5-5.1) mmol/L Glucose 103 H (74-99) mg/dL Calcium 10.4 H (8.4-10.2) mg/dL Diabetes panel 09/02/19 Range/Units 08:55 Sodium 142 (137-145) mmol/L Potassium 3.1 L (3.5-5.1) mmol/L Chloride 107 (98-107) mmol/L Carbon Dioxide 27 (22-30) mmol/L BUN 11 (7-17) mg/dL Creatinine 0.81 (0.52-1.04) mg/dL Glucose 103 H (74-99) mg/dL Calcium 10.4 H (8.4-10.2) mg/dL AST 18 (14-36) U/L ALT 27 (9-52) U/L Alkaline Phosphatase 105 (38-126) U/L Total Protein 6.5 (6.3-8.2) g/dL Albumin 3.5 (3.5-5.0) g/dL Calcium panel 09/02/19 Range/Units 08:55 Calcium 10.4 H (8.4-10.2) mg/dL Albumin 3.5 (3.5-5.0) g/dL Pituitary panel 09/02/19 Range/Units 08:55 Sodium 142 (137-145) mmol/L Potassium 3.1 L (3.5-5.1) mmol/L Chloride 107 (98-107) mmol/L Carbon Dioxide 27 (22-30) mmol/L BUN 11 (7-17) mg/dL Creatinine 0.81 (0.52-1.04) mg/dL Glucose 103 H (74-99) mg/dL Calcium 10.4 H (8.4-10.2) mg/dL Adrenal panel 09/02/19 Range/Units 08:55 Sodium 142 (137-145) mmol/L Potassium 3.1 L (3.5-5.1) mmol/L Chloride 107 (98-107) mmol/L Carbon Dioxide 27 (22-30) mmol/L BUN 11 (7-17) mg/dL Creatinine 0.81 (0.52-1.04) mg/dL Glucose 103 H (74-99) mg/dL Calcium 10.4 H (8.4-10.2) mg/dL Total Bilirubin 0.4 (0.2-1.3) mg/dL AST 18 (14-36) U/L ALT 27 (9-52) U/L Alkaline Phosphatase 105 (38-126) U/L Total Protein 6.5 (6.3-8.2) g/dL Albumin 3.5 (3.5-5.0) g/dL
[2019-09-02] MEDS: PIPERACILLIN-TAZOBACTAM 3.375 GM in SODIUM CHLORIDE 0.9% 100 ML IVPB SCH (20:16)
[2019-09-02] MEDS ORDERED: PANTOPRAZOLE 40 MG TABLET PO SCH (21:00)
[2019-09-03] MEDS: MORPHINE SULFATE 4 MG/ML SYRINGE IVP PRN ×2 (01:05→06:25)
[2019-09-03] MEDS: PIPERACILLIN-TAZOBACTAM 3.375 GM in SODIUM CHLORIDE 0.9% 100 ML IVPB SCH ×2 (04:50→11:38)
[2019-09-03 07:32] LABS: African American GFR (CKD) >90 (>60 ml/min/1.73 sqM); Anion Gap 7 mmol/L; Basophils % (A) 1 %; Blood Urea Nitrogen 8 mg/dL (7-17); Calcium 8.6 mg/dL (8.4-10.2); Carbon Dioxide 25 mmol/L (22-30); Chloride 111 mmol/L (98-107); Eosinophils # (A) 0.2 k/uL (0-0.7); Eosinophils % (A) 3 %; Glucose 88 mg/dL (74-99); HCT 33.5 % (34.0-46.0); Lymphocytes # (A) 2.2 k/uL (1.0-4.8); Lymphocytes % (A) 25 %; MCH 28.6 pg (25.0-35.0); MCHC 32.9 g/dL (31.0-37.0); MCV 87.1 fL (80.0-100.0); Mean Platelet Volume 6.4; Monocytes # (A) 0.7 k/uL (0-1.0); Monocytes % (A) 8 %; Neutrophils # (A) 5.2 k/uL (1.3-7.7); Neutrophils % (A) 62 %; Non-African American GFR(CKD) >90 (>60 ml/min/1.73 sqM); Platelet Count 385 k/uL (150-450); Potassium 3.2 mmol/L (3.5-5.1); RBC 3.85 m/uL (3.80-5.40); RDW 13.5 % (11.5-15.5); Sodium 143 mmol/L (137-145); WBC 8.5 k/uL (3.8-10.6)
[2019-09-03 07:53] VITALS: BP 93/57; PULSE 84; RESP 16; TEMP 98.4
[2019-09-03] MEDS ORDERED: POTASSIUM CHLORIDE ER 20 MEQ TAB.ER PO STA (09:33)
[2019-09-03] MEDS ORDERED: BUTALB/APAP/CAFF 50-325-40MG TAB PO PRN (10:06)
--- NOTE | 2019-09-03 11:46 | P.PN ---
<Amrita Alex Osorio - Last Filed: 09/03/19 11:44> Subjective Progress Note Date: 09/03/19 CHIEF COMPLAINT: Abdominal pain HISTORY OF PRESENT ILLNESS: Patient examined this morning at the bedside. Patient reports her pain did increase overnight and she was having some back pain. However she states this morning her pain has improved and she is feeling well. She does complain of a headache. She states she joins a lot of caffeine and thinks it may be secondary to caffeine withdrawal. Vital signs are stable. Patient is afebrile. WBC 8.5. PHYSICAL EXAM: VITAL SIGNS: Reviewed GENERAL: Well-developed in no acute distress. HEENT: No sclera icterus. Extraocular movements grossly intact. Moist buccal mucosa. Head is atraumatic, normocephalic. Hears conversational speech. No nasal drainage. NECK: Supple without lymphadenopathy. CHEST: Non-labored respirations and equal bilateral excursions. CARDIOVASCULAR: Regular rate with regular rhythm. Palpable 2+ radial pulses. ABDOMEN: Soft. Nondistended. Minimal tenderness with palpation. No pe ritonitis MUSCULOSKELETAL: No clubbing, cyanosis or edema. NEUROLOGIC: No focal or lateralizing signs. Cranial nerves II through XII grossly intact. PSYCH: Appropriate affect. Alert and oriented to person, place and time. SKIN: Well perfused. Good skin turgor. ASSESSMENT: 1. Abdominal pain 2. Acute sigmoid diverticulitis with small localized perforation PLAN: Begin clear liquid diet Fioricet when necessary for headaches No surgical intervention recommended at this time. Continue with conservative management. If patient tolerates clear liquid diet. She may be discharged home today from a surgical standpoint on antibiotics for 2 weeks. Patient started to continue to follow a full liquid diet for the next 72 hours. Nurse practitioner note has been reviewed by physician. Signing provider agrees with the documented findings, assessment, and plan of care. Objective - Vital Signs Vital signs: Vital Signs Temp 98.4 F 09/03/19 07:49 Pulse 84 09/03/19 07:49 Resp 16 09/03/19 07:49 BP 93/57 09/03/19 07:49 Pulse Ox 94 L 09/03/19 07:49 Intake & Output 09/02/19 09/03/19 09/03/19 18:59 06:59 18:59 Intake Total 2600 Balance 2600 Weight 86.364 kg Intake: Intake, IV Titration 2600 Amount Piperacillin-Tazobactam 3 200 .375 gm In Sodium Chloride 0.9% 100 ml @ 200 mls/hr IVPB ONCE STA Rx#:[id number] Sodium Chloride 0.9% 1, 2400 000 ml @ 100 mls/hr IV . Q10H [facility] Rx#:[id number] Other: Voiding Method Toilet Toilet # Voids 1 1 - Labs CBC & Chem 7: 09/03/19 06:39 09/03/19 06:39 Labs: Abnormal Lab Results - Last 24 Hours (Table) 09/03/19 09/03/19 Range/Units 06:39 06:39 Hgb 11.0 L (11.4-16.0) gm/dL Hct 33.5 L (34.0-46.0) % Potassium 3.2 L (3.5-5.1) mmol/L Chloride 111 H (98-107) mmol/L <Luann Bolanos - Last Filed: 09/04/19 13:53> Subjective Patient seen and evaluated with above. No surgical intervention at this time. Will need follow up as outpatient. Liquid diet upon discharge. Objective - Vital Signs Vital signs: Vital Signs Temp 98.4 F 09/03/19 07:49 Pulse 84 09/03/19 07:49 Resp 16 09/03/19 07:49 BP 93/57 09/03/19 07:49 Pulse Ox 94 L 09/03/19 07:49 - Labs CBC & Chem 7: 09/03/19 06:39 09/03/19 06:39 Labs: Abnormal Lab Results - Last 24 Hours (Table) 09/02/19 Range/Units 10:15 Stool Lactoferrin POSITIVE H (NEGATIVE) Microbiology - Last 24 Hours (Table) 09/02/19 10:50 Blood Culture - Preliminary Blood No Growth after 48 hours 09/02/19 10:15 Stool Culture - Preliminary Stool
[2019-09-03] MEDS ORDERED: AMOXIC-POT CLAV 875-125MG 1 EACH TAB PO STA (12:15)
[2019-09-03] MEDS: SODIUM CHLORIDE 0.9% 1,000 ML IV SCH (12:19)
--- NOTE | 2019-09-03 19:00 | P.DS ---
Providers Date of admission: 09/02/19 11:11 Expected date of discharge: 09/03/19 Attending physician: Tomi Brizuela Consults: 09/02/19 11:13 Consult Physician Urgent Consulting Provider: Luann Bolanos Consult Reason/Comments: perforated diverticulitis Do you want consulting provider notified?: Yes Primary care physician: Tomi Brizuela Hospital Course: Final Diagnosis Abdominal pain and diverticulitis with perforated diverticulum History of fibromyalgia GERD Hyperlipidemia SVT Discharge disposition Patient is being discharged in a stable condition with guarded prognosis to home and will follow up with primary care provider upon discharge. Patient will also follow up with surgery in 1-2 weeks. Patient will continue with Flagyl and Cipro upon discharge. Total time taken is 35 minutes. History of present illness 38-year-old female presented to the emergency room with complaints of abdominal pain area patient has had pain for 6 days with diarrhea bodyaches and chills. Patient does have a history of fibromyalgia GERD and hyperlipidemia healthy otherwise. Currently patient denies any chest pain, shortness of breath, or palpitations. Patient has been afebrile. Patient denies any nausea or vomiting and has been tolerating clear liquids. Patient states that she did have a bowel movement this morning. Patient has mild abdominal discomfort but states it has greatly improved. Patient instructed to continue with clear or full liquids for 48 hours and advance slowly as tolerated. Patient will also continue with antibiotics in the form of flagyl and cipro and follow up with surgery in 1-2 weeks. Physical Exam GENERAL: The patient is alert and oriented x3, not in any acute distress. Well developed, well nourished. Vital signs are stable. HEENT: Pupils are round and equally reacting to light. EOMI. No scleral icterus. No conjunctival pallor. Normocephalic, atraumatic. No pharyngeal erythema. No thyromegaly. CARDIOVASCULAR: S1 and S2 present. No murmurs, rubs, or gallops. PULMONARY: Chest is clear to auscultation, no wheezing or crackles. ABDOMEN: Soft, mild tenderness on palpation, nondistended, normoactive bowel sounds. No palpable organomegaly. MUSCULOSKELETAL: No joint swelling or deformity. EXTREMITIES: No cyanosis, clubbing, or pedal edema. NEUROLOGICAL: Gross neurological examination did not reveal any focal deficits. SKIN: No rashes. Please refer to medication reconciliation sheet for a list of medications. Patient Condition at Discharge: Stable Plan - Discharge Summary Discharge Rx Participant: No New Discharge Prescriptions: New Ciprofloxacin HCl [Cipro] 500 mg PO BID #28 tab metroNIDAZOLE [Flagyl] 500 mg PO TID #42 tab Butalb/APAP/Caff 50-325-40Mg [Fioricet 50-325-40] 1 each PO Q4HR PRN #10 tab PRN Reason: Headache Continue Omeprazole Magnesium [PriLOSEC OTC] 20 mg PO HS Ibuprofen [Motrin Ib] 400 - 800 mg PO Q6H PRN PRN Reason: Pain Discharge Medication List Ibuprofen [Motrin Ib] 400 - 800 mg PO Q6H PRN 09/02/19 [History] Omeprazole Magnesium [PriLOSEC OTC] 20 mg PO HS 09/02/19 [History] Butalb/APAP/Caff 50-325-40Mg [Fioricet 50-325-40] 1 each PO Q4HR PRN #10 tab 09/03/19 [Rx] Ciprofloxacin HCl [Cipro] 500 mg PO BID #28 tab 09/03/19 [Rx] metroNIDAZOLE [Flagyl] 500 mg PO TID #42 tab 09/03/19 [Rx] Follow up Appointment(s)/Referral(s): Tomi Brizuela MD [Primary Care Provider] - 09/14/19 10:20 am Luann Bolanos MD [STAFF PHYSICIAN] - As Needed Patient Instructions/Handouts: Diverticulitis (DC) Activity/Diet/Wound Care/Special Instructions: Full liquid diet for next 3 days then slowly advance Follow-up with primary care provider upon discharge Continue full liquids and then slowly advance as tolerated Follow-up with primary care provider upon discharge Take antibiotics until finished Activity Limited until follow-up Discharge Disposition: HOME SELF-CARE
== END 2019-09-03 15:25 | disposition home or self-care (01) ==
LOC: EC 07:26 → 4SSUR 11:11
PROVIDERS: ADMIT Family Medicine; ATTEND Family Medicine
DX: K57.20 Diverticulitis of large intestine with perforation and abscess without bleeding (principal); E78.00 Pure hypercholesterolemia, unspecified; E78.5 Hyperlipidemia, unspecified; F17.200 Nicotine dependence, unspecified, uncomplicated; I47.1 Supraventricular tachycardia; K21.9 Gastro-esophageal reflux disease without esophagitis; M79.7 Fibromyalgia; Z79.2 Long term (current) use of antibiotics; Z79.1 Long term (current) use of non-steroidal anti-inflammatories (NSAID); Z79.899 Other long term (current) drug therapy; Z98.51 Tubal ligation status; R51 Headache; Z23 Encounter for immunization
CPT/HCPCS: 96376 ×2; 96361 ×2; 96366 ×2; 96365; 96375; 99285; 36415; 93005; 80053; 80048; 82550; 83605; 83690; 83735; 85025 ×2; 82272; 81003; 81025; 87040; 87045; 83630; 87046; 74177; 90732; 90686; G0378 ×2; G0008; G0009; J2543 ×2; J2270 ×2; J2405; Q9967

== ENCOUNTER → 2021-02-20 | Outpatient (CLI) | payer OTHER ==
--- NOTE | 2021-02-20 11:57 | MM ---
Reason for exam: screening (asymptomatic). Last mammogram was performed 9 years and 1 month ago. History: Family history of premenopausal breast cancer in paternal aunt at age 50 and premenopausal breast cancer in paternal aunt at age 40. Reductions of both breasts, July 2011. Excisional biopsy of the right breast, October 2005. Took hormonal contraceptives for 1 year. Physical Findings: Nurse did not find any significant physical abnormalities on exam. MG 3D Screening Mammo W/Cad Bilateral CC and MLO view(s) were taken. No prior studies available for comparison. The breast tissue is heterogeneously dense. This may lower the sensitivity of mammography. Finding #1: There are 11 mm equal density (isodense) masses in both breasts. Finding #2: There are typically benign calcifications in both breasts. These results were verbally communicated with the patient and result sheet given to the patient on 02/20/21. ASSESSMENT: Incomplete: need additional imaging evaluation, BI-RAD 0 RECOMMENDATION: Special view mammogram of both breasts.
--- NOTE | 2021-02-20 11:58 | MM ---
Reason for exam: additional evaluation requested from abnormal screening. Last mammogram was performed 9 years and 1 month ago. History: Family history of premenopausal breast cancer in paternal aunt at age 50 and premenopausal breast cancer in paternal aunt at age 40. Reductions of both breasts, July 2011. Excisional biopsy of the right breast, October 2005. Took hormonal contraceptives for 1 year. Physical Findings: Breast exam preformed at baseline screening. MG 3D Work Up W/Cad BOB Bilateral spot compression CC and LM view(s) were taken. Spot compression MLO view(s) were taken of the right breast. No prior studies available for comparison. The breast tissue is heterogeneously dense. This may lower the sensitivity of mammography. Benign appearing bilateral calcifications. These results were verbally communicated with the patient and result sheet given to the patient on 02/20/21. ASSESSMENT: Benign, BI-RAD 2 RECOMMENDATION: Routine screening mammogram of both breasts in 1 year.
== END | disposition home or self-care (01) ==
LOC: RADMAMWWP 10:47
PROVIDERS: ATTEND Family Medicine
DX: Z12.31 Encounter for screening mammogram for malignant neoplasm of breast (principal); Z80.3 Family history of malignant neoplasm of breast; Z78.0 Asymptomatic menopausal state; R92.2 Inconclusive mammogram; R92.1 Mammographic calcification found on diagnostic imaging of breast
CPT/HCPCS: 77062; 77063; 77066; 77067

== ENCOUNTER 2021-04-04 19:20 | Emergency (ER) | payer OTHER ==
[2021-04-04 20:07] VITALS: TEMP 99.2
[2021-04-04 21:00] LABS: Basophils # (A) 0.1 k/uL (0-0.2); Basophils % (A) 1 %; Eosinophils # (A) 0.2 k/uL (0-0.7); Eosinophils % (A) 2 %; HCT 39.7 % (34.0-46.0); HGB 13.5 gm/dL (11.4-16.0); Lymphocytes # (A) 3.1 k/uL (1.0-4.8); Lymphocytes % (A) 32 %; MCH 28.6 pg (25.0-35.0); Mean Platelet Volume 7.3; Monocytes # (A) 0.6 k/uL (0-1.0); Monocytes % (A) 6 %; Neutrophils # (A) 5.7 k/uL (1.3-7.7); Neutrophils % (A) 59 %; Platelet Count 312 k/uL (150-450); RBC 4.72 m/uL (3.80-5.40); WBC 9.7 k/uL (3.8-10.6)
[2021-04-04 21:04] LABS: Appearance,Urine Clear (Clear); Bilirubin,Urine Negative (Negative); Blood,Urine Negative (Negative); Color,Urine Colorless; Glucose,Urine (UA) Negative (Negative); Ketones,Urine Negative (Negative); Leukocyte Esterase,Urine Negative (Negative); Nitrite,Urine Negative (Negative); Protein,Urine Negative (Negative); Specific Gravity,Urine 1.003 (1.001-1.035); Urobilinogen,Urine <2.0 mg/dL (<2.0)
[2021-04-04 21:17] LABS: ALT 18 U/L (4-34); AST 21 U/L (14-36); African American GFR (CKD) >90 (>60 ml/min/1.73 sqM); Albumin 4.3 g/dL (3.5-5.0); Alkaline Phosphatase 96 U/L (38-126); Anion Gap 9 mmol/L; Blood Urea Nitrogen 12 mg/dL (7-17); Calcium 9.9 mg/dL (8.4-10.2); Carbon Dioxide 22 mmol/L (22-30); Chloride 108 mmol/L (98-107); Glucose 111 mg/dL (74-99); Lipase 161 U/L (23-300); Non-African American GFR(CKD) >90 (>60 ml/min/1.73 sqM); Potassium 3.7 mmol/L (3.5-5.1); Sodium 139 mmol/L (137-145); Total Bilirubin 0.1 mg/dL (0.2-1.3); Total Protein 6.9 g/dL (6.3-8.2)
[2021-04-04] MEDS ORDERED: HYDROmorphone 0.5 MG/0.5 ML SYRINGE IVP STA (21:23)
[2021-04-04] MEDS ORDERED: ONDANSETRON 4 MG/2 ML VIAL IVP STA (21:23)
--- NOTE | 2021-04-04 21:56 | ED ---
Abdominal Pain HPI - General Chief Complaint: Abdominal Pain Stated Complaint: ABD pain Time Seen by Provider: 04/04/21 20:08 Source: patient Mode of arrival: ambulatory Limitations: no limitations - History of Present Illness Initial Comments: 40-year-old female patient presents to the emergency department today for evaluation of right lower quadrant abdominal pain that radiates through to the back. She states the pain is been there for the last couple of months worsening over the last few weeks. States that she has pain over her tailbone and a co nstant urge to defecate. Denies any fever or chills. Denies any hematuria, dysuria, urinary frequency, urinary urgency. Denies any abnormal vaginal discharge. States her periods have been heavier and more painful recently. Denies chance of . Has had three C-sections in the past, no other abdominal surgeries. States she has been seen by her physician and does have a colonoscopy scheduled for Friday. States the pain was worse today that had been so she presented here to get checked out. Patient denies any recent rash, cough, shortness of breath, chest pain, nausea, vomiting, diarrhea, constipation, numbness, tingling, dizziness, weakness, headache, visual changes, or any other complaints. - Related Data Home Medications Medication Instructions Recorded Confirmed Ibuprofen [Motrin Ib] 400 - 800 mg PO Q6H PRN 09/02/19 09/02/19 Omeprazole Magnesium [PriLOSEC OTC] 20 mg PO HS 09/02/19 09/02/19 Previous Rx's Medication Instructions Recorded Butalb/APAP/Caff 50-325-40Mg 1 each PO Q4HR PRN #10 tab 09/03/19 [Fioricet 50-325-40] Ciprofloxacin HCl [Cipro] 500 mg PO BID #28 tab 09/03/19 metroNIDAZOLE [Flagyl] 500 mg PO TID #42 tab 09/03/19 Allergies Allergy/AdvReac Type Severity Reaction Status Date / Time No Known Allergies Allergy Verified 04/04/21 20:07 Review of Systems ROS Statement: Those systems with pertinent positive or pertinent negative responses have been documented in the HPI. ROS Other: All systems not noted in ROS Statement are negative. Past Medical History Past Medical History: Fibromyalgia, GERD/Reflux, Hyperlipidemia Additional Past Medical History / Comment(s): Mildly elevated cholesterol-no RX yet, pt states she has had nausea past few months and the cause is unknown/she has lost 20 pounds over the past few months, has event monitor for palpitations, migraines in past, "over active gallbladder", History of Any Multi-Drug Resistant Organisms: None Reported Past Surgical History: Breast Surgery, Section, Orthopedic Surgery, Tubal Ligation Additional Past Surgical History / Comment(s): right knee arthroscopy, bilateral breast reduction, x 3, EGD Past Anesthesia/Blood Transfusion Reactions: No Reported Reaction Past Psychological History: Anxiety Smoking Status: Never smoker Past Alcohol Use History: None Reported Past Drug Use History: None Reported - Past Family History Father Family Medical History: No Reported History Mother Family Medical History: No Reported History Additional Family Medical History / Comment(s): . General Exam Limitations: no limitations General appearance: alert, in no apparent distress, other (This is a well- developed, well-nourished adult female patient in no acute distress. Vital signs upon presentation are temperature 99.2F, pulse 113, respirations 20, blood pressure 131/85, pulse ox 98% on room air.) Eye exam: Present: normal appearance, PERRL, EOMI. Absent: scleral icterus, conjunctival injection, periorbital swelling ENT exam: Present: normal exam, normal oropharynx, mucous membranes moist Respiratory exam: Present: normal lung sounds bilaterally. Absent: respiratory distress, wheezes, rales, rhonchi, stridor Cardiovascular Exam: Present: regular rate, normal rhythm, normal heart sounds. Absent: systolic murmur, diastolic murmur, rubs, gallop, clicks GI/Abdominal exam: Present: soft, normal bowel sounds. Absent: distended, tenderness, guarding, rebound, rigid Neurological exam: Present: alert, oriented X3, CN II-XII intact Psychiatric exam: Present: normal affect, normal mood Skin exam: Present: warm, dry, intact, normal color. Absent: rash Course Vital Signs 04/04/21 04/04/21 20:02 22:32 Temperature 99.2 F Pulse Rate 113 H 71 Respiratory 20 16 Rate Blood Pressure 131/85 128/82 O2 Sat by Pulse 98 100 Oximetry Medical Decision Making - Medical Decision Making 40-year-old female patient presented to the emergency department today for evaluation of right lower quadrant abdominal pain and burning for the last couple of months symptoms worsen today. Physical examination revealed a soft nontender abdomen. She is afebrile. Labs reviewed and are unremarkable. CT abdomen and pelvis was obtained and was negative. I did discuss findings and results with her. She does have a colonoscopy coming up on Friday. She is instructed to keep this appointment. Return parameters were discussed in detail. She verbalizes understanding and agrees with this plan. My attending is Dr. Cowan. - Lab Data Result diagrams: 04/04/21 20:40 04/04/21 20:40 Lab Results 04/04/21 04/04/21 04/04/21 Range/Units 20:40 20:40 20:40 WBC 9.7 (3.8-10.6) k/uL RBC 4.72 (3.80-5.40) m/uL Hgb 13.5 (11.4-16.0) gm/dL Hct 39.7 (34.0-46.0) % MCV 84.0 (80.0-100.0) fL MCH 28.6 (25.0-35.0) pg MCHC 34.0 (31.0-37.0) g/dL RDW 14.0 (11.5-15.5) % Plt Count 312 (150-450) k/uL MPV 7.3 Neutrophils % 59 % Lymphocytes % 32 % Monocytes % 6 % Eosinophils % 2 % Basophils % 1 % Neutrophils # 5.7 (1.3-7.7) k/uL Lymphocytes # 3.1 (1.0-4.8) k/uL Monocytes # 0.6 (0-1.0) k/uL Eosinophils # 0.2 (0-0.7) k/uL Basophils # 0.1 (0-0.2) k/uL Sodium 139 (137-145) mmol/L Potassium 3.7 (3.5-5.1) mmol/L Chloride 108 H (98-107) mmol/L Carbon Dioxide 22 (22-30) mmol/L Anion Gap 9 mmol/L BUN 12 (7-17) mg/dL Creatinine 0.64 (0.52-1.04) mg/dL Est GFR (CKD-EPI)AfAm >90 (>60 ml/min/1.73 sqM) Est GFR (CKD-EPI)NonAf >90 (>60 ml/min/1.73 sqM) Glucose 111 H (74-99) mg/dL Plasma Lactic Acid Brian (0.7-2.0) mmol/L Calcium 9.9 (8.4-10.2) mg/dL Total Bilirubin 0.1 L (0.2-1.3) mg/dL AST 21 (14-36) U/L ALT 18 (4-34) U/L Alkaline Phosphatase 96 (38-126) U/L Total Protein 6.9 (6.3-8.2) g/dL Albumin 4.3 (3.5-5.0) g/dL Lipase 161 (23-300) U/L Urine Color Colorless Urine Appearance Clear (Clear) Urine pH 5.0 (5.0-8.0) Ur Specific [place] 1.003 (1.001-1.035) Urine Protein Negative (Negative) Urine Glucose (UA) Negative (Negative) Urine Ketones Negative (Negative) Urine Blood Negative (Negative) Urine Nitrite Negative (Negative) Urine Bilirubin Negative (Negative) Urine Urobilinogen <2.0 (<2.0) mg/dL Ur Leukocyte Esterase Negative (Negative) Urine HCG, Qual (Not Detectd) 04/04/21 04/04/21 Range/Units 20:40 20:40 WBC (3.8-10.6) k/uL RBC (3.80-5.40) m/uL Hgb (11.4-16.0) gm/dL Hct (34.0-46.0) % MCV (80.0-100.0) fL MCH (25.0-35.0) pg MCHC (31.0-37.0) g/dL RDW (11.5-15.5) % Plt Count (150-450) k/uL MPV Neutrophils % % Lymphocytes % % Monocytes % % Eosinophils % % Basophils % % Neutrophils # (1.3-7.7) k/uL Lymphocytes # (1.0-4.8) k/uL Monocytes # (0-1.0) k/uL Eosinophils # (0-0.7) k/uL Basophils # (0-0.2) k/uL Sodium (137-145) mmol/L Potassium (3.5-5.1) mmol/L Chloride (98-107) mmol/L Carbon Dioxide (22-30) mmol/L Anion Gap mmol/L BUN (7-17) mg/dL Creatinine (0.52-1.04) mg/dL Est GFR (CKD-EPI)AfAm (>60 ml/min/1.73 sqM) Est GFR (CKD-EPI)NonAf (>60 ml/min/1.73 sqM) Glucose (74-99) mg/dL Plasma Lactic Acid Brian 1.2 (0.7-2.0) mmol/L Calcium (8.4-10.2) mg/dL Total Bilirubin (0.2-1.3) mg/dL AST (14-36) U/L ALT (4-34) U/L Alkaline Phosphatase (38-126) U/L Total Protein (6.3-8.2) g/dL Albumin (3.5-5.0) g/dL Lipase (23-300) U/L Urine Color Urine Appearance (Clear) Urine pH (5.0-8.0) Ur Specific [place] (1.001-1.035) Urine Protein (Negative) Urine Glucose (UA) (Negative) Urine Ketones (Negative) Urine Blood (Negative) Urine Nitrite (Negative) Urine Bilirubin (Negative) Urine Urobilinogen (<2.0) mg/dL Ur Leukocyte Esterase (Negative) Urine HCG, Qual Not Detected (Not Detectd) - Radiology Data Radiology results: report reviewed, image reviewed CT abdomen and pelvis with contrast was obtained. Report is reviewed in its entirety. Impression by Dr. Olguin shows sigmoid diverticulosis without diverticulitis. Appendix not seen. No sign of appendicitis. There is clearing of the inflammatory changes around the sigmoid colon compared to old exam. Disposition Clinical Impression: Abdominal pain Disposition: HOME SELF-CARE Condition: Good Instructions (If sedation given, give patient instructions): Abdominal Pain (ED) Additional Instructions: Follow-up on Friday as you have planned. Take medicine sparingly as needed for pain. Return for any new, worsening, or concerning symptoms. Is patient prescribed a controlled substance at d/c from ED?: No Referrals: Tomi Brizuela MD [Primary Care Provider] - 1-2 days Time of Disposition: 22:25
--- NOTE | 2021-04-04 22:01 | CT ---
EXAMINATION TYPE: CT abdomen pelvis w con DATE OF EXAM: 04/04/2021 COMPARISON: 09/02/2019 HISTORY: RLQ pain CT DLP: 1363.3 mGycm Automated exposure control for dose reduction was used. CONTRAST: Performed with IV Contrast, patient injected with 100 mL of Isovue 300. Lung bases are clear. There is no pleural effusion. Heart size is normal. There is no pericardial eff usion. Liver spleen stomach pancreas gallbladder appear intact. Bile ducts are not dilated. There is 1.7 cm hypodensity in the lateral right lobe of the liver. This appears unchanged and consistent with tanvir ioma. There is no adrenal mass. Kidneys show satisfactory contrast opacification. There is no hydronephrosi s. Ureters are not dilated. There is no retroperitoneal adenopathy. Bladder distends smoothly. There is no inguinal hernia. Uterus is retroverted. There is no evidence of pelvic mass. There is no free f luid in the pelvis. There are some sigmoid diverticula. There is no diverticulitis. Appendix is not d efinitely seen. There is no sign of thickened appendix. There is no mesenteric edema. There is no ascites or free air. There is no bowel obstruction. The lumbar vertebra have normal alignment. Disc spaces are fairly normal. There is no compression fra cture. Posterior elements are intact. Bony pelvis is intact. The hip joints are intact. There is no h ip dysplasia. IMPRESSION: There is sigmoid diverticulosis without diverticulitis. Appendix not seen. No sign of appendicitis. T here is clearing of the inflammatory changes around the sigmoid colon compared to old exam.
[2021-04-04] MEDS ORDERED: ACET/COD 300 MG/30 MG STARTER PACK 6 TAB BTL PO STA (22:25)
[2021-04-04 22:33] VITALS: BP 128/82; PULSE 71; RESP 16
== END 2021-04-04 22:33 | disposition home or self-care (01) ==
LOC: EC 19:20
DX: R10.31 Right lower quadrant pain (principal); K21.9 Gastro-esophageal reflux disease without esophagitis; Z79.899 Other long term (current) drug therapy
CPT/HCPCS: 36415; 80053; 83605; 83690; 85025; 81003; 81025; 74177; 99284; 96374; 96375; J2405; J1170; Q9967

== ENCOUNTER 2021-04-09 06:45 | Day surgery (SDC) | payer OTHER ==
[2021-04-05 10:35] VITALS: BMI 34.5
[2021-04-09 07:26] VITALS: TEMP 97.7
[2021-04-09] MEDS ORDERED: LACTATED RINGERS 1,000 ML IV ONE (07:39)
[2021-04-09] MEDS ORDERED: LIDOCAINE 1% (10MG/ML) FOR IV START INTRADERMA ONE (07:40)
[2021-04-09] MEDS ORDERED: PROPOFOL 10 MG/ML 20 ML VIAL IV ONE (07:55)
[2021-04-09] MEDS ORDERED: LIDOCAINE 1% INJ 10MG/ML (20 ML MDV) ONE (07:55)
--- NOTE | 2021-04-09 08:35 | P.PCN ---
Date of Procedure: 04/09/21 Description of Procedure: Brief history: Patient is a pleasant 40-year-old female presenting for outpatient EGD and colonoscopy for evaluation of GERD and change in bowel habits. Patient was seen in the GI clinic reporting long-standing history of acid reflux. She had symptoms of postprandial epigastric pain and burning as well as daily heartburn. Currently on Protonix therapy. She also reported symptoms of change in bowel habits with 2-3 bowel movements daily with associated urgency and incomplete evacuation. She does have a history of diverticulitis. Procedure performed: Esophagogastroduodenoscopy with biopsy Colonoscopy with biopsy Estimated blood loss: Minimal. Preoperative diagnosis: Gastroesophageal reflux disease, change in bowel habits, diverticulitis. Anesthesia: [facility] Procedure: After informed consent was obtained from the patient was brought into the end oscopy unit and IV sedation was administered by anesthesia under continuous monitoring. Initially upper endoscopy was done. The Olympus GF 190 video endoscope was inserted into the mouth and esophagus intubated without any difficulty and was gradually advanced into the stomach and duodenum and carefully examined. The bulb and second part of the duodenum appeared normal, with biopsies taken. The scope was then withdrawn into the stomach adequately insufflated with air and upon careful examination the antrum and body, cardia and fundus appeared normal, except for some mild punctate erythema in the antrum and body suggestive of mild gastritis with biopsies taken. The scope was then withdrawn into the esophagus. The GE junction was located at 38 cm to the incisors, with lower esophageal biopsies taken. It appeared regular with no erythema erosions or ulcerations. Rest of the esophagus appeared normal. Patient tolerated the procedure well. At this time the patient continued to remain sedation. Initial digital rectal examination was normal. Olympus CF 190 video colonoscope was then inserted into the rectum and gradually advanced to the cecum without any difficulty. Careful examination was performed as the scope was gradually being withdrawn. The prep was excellent. The cecum, ascending colon, transverse colon, descending colon, sigmoid colon and rectum appeared normal, with multiple small and large mouth diverticula in the left colon, and random biopsies of the right and left colon given altered bowel function. Retroflexion was performed in the rectum and no lesions were noted, and low-grade internal hemorrhoids seen. Patient tolerated the procedure well. Impression: 1. Mild gastritis, biopsies of the duodenum, antrum and body and lower esophagus. 2. Moderate left colonic diverticulosis. Low-grade internal hemorrhoids. Random biopsies of the right and left colon. Recommendations: Findings of this examination were discussed with the patient as well as her family. Okay to resume diet. Okay to resume medications. Await pathology from biopsies. Follow up in the GI clinic as scheduled.
[2021-04-09] MEDS ORDERED: ONDANSETRON 4 MG/2 ML VIAL ONE (09:10)
[2021-04-09] MEDS ORDERED: ONDANSETRON 4 MG/2 ML VIAL IVP ONE (09:11)
[2021-04-09 09:16] VITALS: BP 151/81; PULSE 67; RESP 16
== END 2021-04-09 09:25 | disposition home or self-care (01) ==
LOC: ORWHC2ENDO 06:45
PROVIDERS: ATTEND Internal Medicine
DX: K29.50 Unspecified chronic gastritis without bleeding (principal); K57.30 Diverticulosis of large intestine without perforation or abscess without bleeding; K64.8 Other hemorrhoids; K21.9 Gastro-esophageal reflux disease without esophagitis; Z98.891 History of uterine scar from previous surgery; Z98.890 Other specified postprocedural states; Z79.899 Other long term (current) drug therapy
CPT/HCPCS: 81025; 88305; 45380; 43239; J2405; J2001; J2704

== ENCOUNTER → 2021-06-11 | Outpatient (CLI) | payer OTHER ==
--- NOTE | 2021-06-11 13:57 | XR ---
EXAMINATION TYPE: XR ankle limited LT DATE OF EXAM: 06/11/2021 COMPARISON: NONE HISTORY: Pain TECHNIQUE: 2 views of the left ankle are submitted for evaluation. FINDINGS: There is no evidence for fracture or dislocation. Ankle mortise is intact. Well-corticated ossific density adjacent to the medial malleolar tip may reflect unfused ossicle versus remote insult . Mild soft tissue swelling noted about the ankle. IMPRESSION: 1. No evidence for acute fracture.
== END | disposition home or self-care (01) ==
LOC: RADXRMAIN 12:50
PROVIDERS: ATTEND Internal Medicine
DX: M25.572 Pain in left ankle and joints of left foot (principal)

== ENCOUNTER 2021-06-22 18:57 | Emergency (ER) | payer OTHER ==
[2021-06-22] MEDS ORDERED: SODIUM CHLORIDE 0.9% 1,000 ML IV STA (19:27)
[2021-06-22] MEDS ORDERED: HYDROmorphone 0.5 MG/0.5 ML SYRINGE IVP STA (19:27)
[2021-06-22] MEDS ORDERED: ONDANSETRON 4 MG/2 ML VIAL IVP STA (19:27)
--- NOTE | 2021-06-22 19:30 | ED ---
Abdominal Pain HPI - General Chief Complaint: Abdominal Pain Stated Complaint: abd pain Time Seen by Provider: 06/22/21 19:15 Source: patient Mode of arrival: ambulatory Limitations: no limitations - History of Present Illness Initial Comments: 40 year-old female patient presents to the emergency department for evaluation of lower abdominal pain. Worse in the right lower quadrant but does spread across the lower abdomen. Reports low back pain with this. States it has been going on for months but worsened today. She reports chronic constipation. Repor ts nausea today without vomiting. She has had CT abdomen and pelvis in March which was negative. Had colonoscopy in March as well which showed diverticulosis and mild internal hemorrhoids. She reports body aches and feeling unwell overall today. States her last period was two weeks ago. Periods have been normal flow and duration. Does have her tubes tied. Denies any other abdominal surgeries. Patient denies any recent rash, cough, shortness of breath, chest pain, numbness, tingling, dizziness, weakness, hematuria, dysuria, urinary urgency, urinary frequency, headache, visual changes, or any other complaints. - Related Data Home Medications Medication Instructions Recorded Confirmed Pantoprazole [Protonix] 40 mg PO DAILY 04/05/21 04/09/21 Previous Rx's Medication Instructions Recorded Acetaminophen-Codeine 300-30mg 1 tab PO Q6H PRN #12 tablet 06/22/21 [Tylenol #3] Allergies Allergy/AdvReac Type Severity Reaction Status Date / Time No Known Allergies Allergy Verified 06/22/21 19:10 Review of Systems ROS Statement: Those systems with pertinent positive or pertinent negative responses have been documented in the HPI. ROS Other: All systems not noted in ROS Statement are negative. Past Medical History Past Medical History: Fibromyalgia, GERD/Reflux, Hyperlipidemia Additional Past Medical History / Comment(s): Mildly elevated cholesterol-no RX yet, pt states she has had nausea past few months and the cause is unknown/she has lost 20 pounds over the past few months, has event monitor for palpitations, migraines in past, "over active gallbladder", diverticulitis History of Any Multi-Drug Resistant Organisms: None Reported Past Surgical History: Breast Surgery, Section, Orthopedic Surgery, Tubal Ligation Additional Past Surgical History / Comment(s): right knee arthroscopy, bilateral breast reduction, x 3, EGD Past Anesthesia/Blood Transfusion Reactions: No Reported Reaction Past Psychological History: Anxiety Smoking Status: Never smoker Past Alcohol Use History: None Reported Past Drug Use History: Marijuana - Past Family History Father Family Medical History: No Reported History Mother Family Medical History: No Reported History Additional Family Medical History / Comment(s): . General Exam Limitations: no limitations General appearance: alert, in no apparent distress, other (This is a well- developed, well-nourished adult female patient in no acute distress. Vital signs upon presentation are temperature 98.4F, pulse 102, respirations 20, blood pressure 150/106, pulse ox 99% on room air.) Eye exam: Present: normal appearance, PERRL, EOMI. Absent: scleral icterus, conjunctival injection, periorbital swelling ENT exam: Present: normal exam, normal oropharynx, mucous membranes moist Respiratory exam: Present: normal lung sounds bilaterally. Absent: respiratory distress, wheezes, rales, rhonchi, stridor Cardiovascular Exam: Present: regular rate, normal rhythm, normal heart sounds. Absent: systolic murmur, diastolic murmur, rubs, gallop, clicks GI/Abdominal exam: Present: soft, tenderness (Lower abdominal worsening right lower quadrant), normal bowel sounds. Absent: distended, guarding, rebound, rigid Neurological exam: Present: alert, oriented X3, CN II-XII intact Psychiatric exam: Present: normal affect, normal mood Skin exam: Present: warm, dry, intact, normal color. Absent: rash Course Vital Signs 06/22/21 06/22/21 06/22/21 19:06 19:40 21:54 Temperature 98.4 F Pulse Rate 102 H 91 94 Respiratory 20 18 18 Rate Blood Pressure 150/106 132/91 147/98 O2 Sat by Pulse 99 97 95 Oximetry 06/22/21 23:47 Temperature 98.7 F Pulse Rate 97 Respiratory 18 Rate Blood Pressure 170/111 O2 Sat by Pulse 98 Oximetry Medical Decision Making - Medical Decision Making 40-year-old female patient presents to the emergency department today for evaluation of lower abdominal pain worse over the right lower quadrant. She is reporting pain radiating to her back. States pain has been coming on for months. States that she has had multiple tests to determine cause of her pain without any significant findings. She did have CT abdomen and pelvis here in March. Had colonoscopy with upper endoscopy. Physical examination did reveal lower abdominal tenderness was over the right lower quadrant. Vital signs unremarkable. Did perform transvaginal ultrasound which showed possible right ovarian torsion due to not seeing venous outflow however she has no secondary si gns of ovarian torsion and pain has been going on for months. KUB was unremarkable. I did discuss findings and results with the patient. She will be discharged to follow-up with the primary care physician for recheck in 1-2 days. Return parameters were discussed in detail. She verbalizes understanding and agrees with this plan. Case discussed with my attending Dr. Rider. - Lab Data Result diagrams: 06/22/21 19:40 06/22/21 19:40 Lab Results 06/22/21 06/22/21 06/22/21 Range/Units 19:40 19:40 19:40 WBC 10.5 (3.8-10.6) k/uL RBC 4.66 (3.80-5.40) m/uL Hgb 13.1 (11.4-16.0) gm/dL Hct 39.6 (34.0-46.0) % MCV 84.9 (80.0-100.0) fL MCH 28.1 (25.0-35.0) pg MCHC 33.1 (31.0-37.0) g/dL RDW 13.2 (11.5-15.5) % Plt Count 389 (150-450) k/uL MPV 7.4 Neutrophils % 68 % Lymphocytes % 23 % Monocytes % 5 % Eosinophils % 3 % Basophils % 0 % Neutrophils # 7.1 (1.3-7.7) k/uL Lymphocytes # 2.4 (1.0-4.8) k/uL Monocytes # 0.6 (0-1.0) k/uL Eosinophils # 0.3 (0-0.7) k/uL Basophils # 0.0 (0-0.2) k/uL Sodium 137 (137-145) mmol/L Potassium 4.0 (3.5-5.1) mmol/L Chloride 105 (98-107) mmol/L Carbon Dioxide 23 (22-30) mmol/L Anion Gap 9 mmol/L BUN 10 (7-17) mg/dL Creatinine 0.62 (0.52-1.04) mg/dL Est GFR (CKD-EPI)AfAm >90 (>60 ml/min/1.73 sqM) Est GFR (CKD-EPI)NonAf >90 (>60 ml/min/1.73 sqM) Glucose 93 (74-99) mg/dL Plasma Lactic Acid Brian (0.7-2.0) mmol/L Calcium 9.5 (8.4-10.2) mg/dL Total Bilirubin 0.5 (0.2-1.3) mg/dL AST 25 (14-36) U/L ALT 19 (4-34) U/L Alkaline Phosphatase 111 (38-126) U/L Total Protein 7.0 (6.3-8.2) g/dL Albumin 4.0 (3.5-5.0) g/dL Lipase 240 (23-300) U/L Urine Color Light Yellow Urine Appearance Cloudy H (Clear) Urine pH 7.0 (5.0-8.0) Ur Specific [place] 1.014 (1.001-1.035) Urine Protein Negative (Negative) Urine Glucose (UA) Negative (Negative) Urine Ketones Negative (Negative) Urine Blood Negative (Negative) Urine Nitrite Negative (Negative) Urine Bilirubin Negative (Negative) Urine Urobilinogen <2.0 (<2.0) mg/dL Ur Leukocyte Esterase Trace H (Negative) Urine RBC 1 (0-5) /hpf Urine WBC 1 (0-5) /hpf Ur Squamous Epith Cells 9 H (0-4) /hpf Urine Bacteria Rare H (None) /hpf Urine Mucus Occasional H (None) /hpf 06/22/21 Range/Units 19:40 WBC (3.8-10.6) k/uL RBC (3.80-5.40) m/uL Hgb (11.4-16.0) gm/dL Hct (34.0-46.0) % MCV (80.0-100.0) fL MCH (25.0-35.0) pg MCHC (31.0-37.0) g/dL RDW (11.5-15.5) % Plt Count (150-450) k/uL MPV Neutrophils % % Lymphocytes % % Monocytes % % Eosinophils % % Basophils % % Neutrophils # (1.3-7.7) k/uL Lymphocytes # (1.0-4.8) k/uL Monocytes # (0-1.0) k/uL Eosinophils # (0-0.7) k/uL Basophils # (0-0.2) k/uL Sodium (137-145) mmol/L Potassium (3.5-5.1) mmol/L Chloride (98-107) mmol/L Carbon Dioxide (22-30) mmol/L Anion Gap mmol/L BUN (7-17) mg/dL Creatinine (0.52-1.04) mg/dL Est GFR (CKD-EPI)AfAm (>60 ml/min/1.73 sqM) Est GFR (CKD-EPI)NonAf (>60 ml/min/1.73 sqM) Glucose (74-99) mg/dL Plasma Lactic Acid Brian 1.2 (0.7-2.0) mmol/L Calcium (8.4-10.2) mg/dL Total Bilirubin (0.2-1.3) mg/dL AST (14-36) U/L ALT (4-34) U/L Alkaline Phosphatase (38-126) U/L Total Protein (6.3-8.2) g/dL Albumin (3.5-5.0) g/dL Lipase (23-300) U/L Urine Color Urine Appearance (Clear) Urine pH (5.0-8.0) Ur Specific [place] (1.001-1.035) Urine Protein (Negative) Urine Glucose (UA) (Negative) Urine Ketones (Negative) Urine Blood (Negative) Urine Nitrite (Negative) Urine Bilirubin (Negative) Urine Urobilinogen (<2.0) mg/dL Ur Leukocyte Esterase (Negative) Urine RBC (0-5) /hpf Urine WBC (0-5) /hpf Ur Squamous Epith Cells (0-4) /hpf Urine Bacteria (None) /hpf Urine Mucus (None) /hpf - Radiology Data Radiology results: report reviewed, image reviewed Transvaginal ultrasound was obtained. Report was reviewed in its entirety. Impression by Dr. Oh shows no venous flow of the right ovary demonstrated, therefore ovarian torsion cannot be excluded. There is positive arterial flow to the right ovary. There is no additional sonographic features of ovarian torsion, as the right ovary is normal in size and appearance, there is no ovarian edema, and no right adnexal adjacent free fluid. No left ovarian torsion. Normal appearance of the uterus. Trace pelvic free fluid is likely physiologic. Disposition Clinical Impression: Abdominal pain Disposition: HOME SELF-CARE Condition: Good Instructions (If sedation given, give patient instructions): Abdominal Pain (ED) Additional Instructions: Cough with her primary care physician for recheck in 1-2 days per take medication sparingly as needed for severe pain. Return to the emergency department for any new, worsening, or concerning symptoms. Prescriptions: Acetaminophen-Codeine 300-30mg [Tylenol #3] 1 tab PO Q6H PRN #12 tablet PRN Reason: Pain Is patient prescribed a controlled substance at d/c from ED?: Yes When asked, does pt state using other controlled substances?: No If prescribed controlled substance>3 days was MAPS reviewed?: Prescribed <3 Days If opioid is for acute pain is fill amount 7 days or less?: Yes If Rx opioid, was Start Talking consent form obtained?: Yes Referrals: Tomi Brizuela MD [Primary Care Provider] - 1-2 days Time of Disposition: 23:32
[2021-06-22 19:50] VITALS: RESP 18
[2021-06-22 20:01] LABS: Basophils % (A) 0 %; Eosinophils # (A) 0.3 k/uL (0-0.7); Eosinophils % (A) 3 %; HCT 39.6 % (34.0-46.0); HGB 13.1 gm/dL (11.4-16.0); Lymphocytes # (A) 2.4 k/uL (1.0-4.8); Lymphocytes % (A) 23 %; MCH 28.1 pg (25.0-35.0); MCHC 33.1 g/dL (31.0-37.0); MCV 84.9 fL (80.0-100.0); Mean Platelet Volume 7.4; Monocytes # (A) 0.6 k/uL (0-1.0); Monocytes % (A) 5 %; Neutrophils # (A) 7.1 k/uL (1.3-7.7); Neutrophils % (A) 68 %; Platelet Count 389 k/uL (150-450); RBC 4.66 m/uL (3.80-5.40); RDW 13.2 % (11.5-15.5); WBC 10.5 k/uL (3.8-10.6)
[2021-06-22 20:12] LABS: ALT 19 U/L (4-34); AST 25 U/L (14-36); African American GFR (CKD) >90 (>60 ml/min/1.73 sqM); Alkaline Phosphatase 111 U/L (38-126); Anion Gap 9 mmol/L; Blood Urea Nitrogen 10 mg/dL (7-17); Calcium 9.5 mg/dL (8.4-10.2); Carbon Dioxide 23 mmol/L (22-30); Chloride 105 mmol/L (98-107); Glucose 93 mg/dL (74-99); Lipase 240 U/L (23-300); Non-African American GFR(CKD) >90 (>60 ml/min/1.73 sqM); Sodium 137 mmol/L (137-145); Total Bilirubin 0.5 mg/dL (0.2-1.3)
[2021-06-22 20:13] LABS: Appearance,Urine Cloudy (Clear); Bacteria,Urine Rare /hpf; Bilirubin,Urine Negative (Negative); Blood,Urine Negative (Negative); Color,Urine Light Yellow; Glucose,Urine (UA) Negative (Negative); Ketones,Urine Negative (Negative); Leukocyte Esterase,Urine Trace (Negative); Mucus,Urine Occasional /hpf; Nitrite,Urine Negative (Negative); Protein,Urine Negative (Negative); RBC,Urine 1 /hpf (0-5); Specific Gravity,Urine 1.014 (1.001-1.035); Squamous Epithelial Cell,Urine 9 /hpf (0-4); Urobilinogen,Urine <2.0 mg/dL (<2.0); WBC,Urine 1 /hpf (0-5)
--- NOTE | 2021-06-22 21:09 | US ---
EXAMINATION TYPE: US transvaginal DATE OF EXAM: 06/22/2021 COMPARISON: CT 2020, US 2012 CLINICAL HISTORY: Pelvic pain; worse on the right. Pelvic pain x couple months, 3, para 3, hi story of 3 c-sections and tubal ligation TECHNIQUE: Transvaginal ER exam. Date of LMP: couple weeks ago EXAM MEASUREMENTS: Uterus: 7.9 x 4.3 x 4.8 cm Endometrial Stripe: 1.3 cm Right Ovary: 2.4 x 1.6 x 2.6 cm Left Ovary: 2.9 x 1.5 x 2.5 cm 1. Uterus: Normal, retroverted 2. Endometrium: Homogenous 3. Right Ovary: Normal. Follicular changes. 4. Left Ovary: Normal. Follicular changes. Spectral, color and waveform doppler imaging shows arterial and venous flow within the left ovary. There is arterial flow within the right ovary, unable to obtain venous flow within the right ovary. 5. Bilateral Adnexa: Trace free fluid in left adnexa 6. Posterior cul-de-sac: Trace free fluid IMPRESSION: 1. There is no venous flow of the right ovary demonstrated, therefore ovarian torsion cannot be exclu ded. There is positive arterial flow to the right ovary. There are no additional sonographic features of ovarian torsion, as the right ovary is normal in size and appearance, there is no ovarian edema, and no right adnexal adjacent free fluid. 2. No left ovarian torsion. 3. Normal appearance of the uterus. 4. Trace pelvic free fluid is likely physiologic.
[2021-06-22] MEDS ORDERED: HYDROmorphone 1 MG/ML 1 ML SYRINGE IVP STA (21:40)
--- NOTE | 2021-06-22 22:50 | XR ---
EXAMINATION TYPE: XR KUB DATE OF EXAM: 06/22/2021 COMPARISON: 12/25/2010 HISTORY: Abdominal pain TECHNIQUE: 2 views upright FINDINGS: Bowel gas pattern is normal. There is no sign of intestinal obstruction or pneumoperitoneum . Fecal pattern is normal. Lung bases are clear. There are no pathologic calcifications over the kidn eys. Bony structures are intact. IMPRESSION: Nonacute abdomen. No adverse change.
[2021-06-22] MEDS ORDERED: ACET/COD 300 MG/30 MG STARTER PACK 6 TAB BTL PO STA (23:31)
[2021-06-22 23:55] VITALS: BP 170/111; PULSE 97; TEMP 98.7
== END 2021-06-22 23:47 | disposition home or self-care (01) ==
LOC: EC 18:57
DX: R10.31 Right lower quadrant pain (principal); M54.5 Low back pain; R11.0 Nausea; K21.9 Gastro-esophageal reflux disease without esophagitis; Z90.89 Acquired absence of other organs; Z87.19 Personal history of other diseases of the digestive system
CPT/HCPCS: 36415; 80053; 83605; 83690; 85025; 81001; 74018; 93975; 76830; 99284; 96374; 96375; 96376; 96361; J2405; J1170 ×2

== ENCOUNTER → 2021-06-26 | Outpatient (CLI) | payer OTHER ==
--- NOTE | 2021-06-26 19:33 | XR ---
EXAMINATION TYPE: XR lumbar spine 3V DATE OF EXAM: 06/26/2021 Comparison: None Clinical History: 40-year-old female M54.5 LOW BACK PAIN Findings: Vertebral body heights are preserved and alignment is maintained. Facet arthropathy lower lumbar spin e. Disc spaces relatively preserved. Impression: Facet arthropathy lower lumbar spine. No vertebral compression collapse or malalignment.
== END | disposition home or self-care (01) ==
LOC: RADXRMAIN 13:54
PROVIDERS: ATTEND Nurse Practitioner
DX: M47.896 Other spondylosis, lumbar region (principal)
CPT/HCPCS: 72100

== ENCOUNTER → 2021-12-25 | Outpatient (CLI) | payer OTHER ==
--- NOTE | 2021-12-26 08:51 | USB ---
Reason for exam: clinical finding. History: Family history of premenopausal breast cancer in paternal aunt at age 50 and premenopausal breast cancer in paternal aunt at age 40. Reductions of both breasts, July 2011. Excisional biopsy of the right breast, October 2005. Took hormonal contraceptives for 1 year. Indicated problem(s): lump or thickening in the left breast. Physical Findings: A clinical breast exam by your physician is recommended on an annual basis and results should be correlated with mammographic findings. US Breast LT Technologist: Karen Aguilar Left complete breast ultrasound includes all four quadrants, the retroareolar region and axilla. Finding demonstrates duct ectasia at 12 o'clock, a 0.6 x 0.5 x 0.3cm vascular, solid and cystic palpable lesion at 2 o'clock, 4cm from nipple, biopsy recommended and a 0.5 x 0.6 x 0.3cm lesion too small to characterize, probable cyst at 4 o'clock, 3cm from nipple. These results were verbally communicated with the patient and result sheet given to the patient on 12/25/21. ASSESSMENT: Suspicious, BI-RAD 4 RECOMMENDATION: Ultrasound core biopsy of the left breast. Called Dr. Brizuela's office with mammographic findings and has scheduled an appointment for the patient for 01/17/22 at 9:[address] Jaramillo. Biopsy scheduled for 01/21/22 at 12:00. PRELIMINARY REPORT CALLED AND FAXED TO DR. JARAMILLO ON 12/26/21.
== END | disposition home or self-care (01) ==
LOC: RADUSWWP 14:01
PROVIDERS: ATTEND Family Medicine
DX: N63.20 Unspecified lump in the left breast, unspecified quadrant (principal); G43.109 Migraine with aura, not intractable, without status migrainosus

== ENCOUNTER → 2022-01-02 | Outpatient (CLI) | payer OTHER ==
--- NOTE | 2022-01-03 06:28 | MR ---
EXAMINATION TYPE: MR brain wo/w con DATE OF EXAM: 01/02/2022 COMPARISON: 04/18/2015 HISTORY: Prior on synapse, migraine with aura CONTRAST: Standard multiplanar, multisequence MRI departmental protocol images were obtained without contrast a nd with 10ml mL intravenous Gadavist gadolinium contrast. Ventricles have normal size. There is no mass effect or midline shift. There is no sign of intracrani al hemorrhage. Diffusion images show no evidence of an acute infarct. Corpus callosum is intact. Brainstem is intact. Talley and white matter structures have fairly normal s ignal pattern. There is no evidence of cerebral edema. There is a single 3 mm focus of slight increas ed signal on the FLAIR images in the cortex left side insula of the temporal lobe. This appears uncha nged and of doubtful significance. There is no evidence of orbital mass. Sella turcica appears normal. Optic chiasm appears normal. Cont rast images show no pathologic enhancement. There is normal enhancement of the venous sinuses. IMPRESSION: Negative MR scan of the brain. No adverse change compared to old exam.
== END | disposition home or self-care (01) ==
LOC: RADMRIMAIN 11:46
PROVIDERS: ATTEND Family Medicine
DX: G43.109 Migraine with aura, not intractable, without status migrainosus (principal)
CPT/HCPCS: 70553; A9585

== ENCOUNTER → 2022-01-21 | Day surgery (SDC) | payer OTHER ==
[2022-01-21 12:42] VITALS: RESP 16
[2022-01-21 13:59] VITALS: BP 119/83; PULSE 75; TEMP 98.1
--- NOTE | 2022-01-21 14:15 | USB ---
EXAMINATION TYPE: US biopsy breast VAD LT, MG diagnostic mammo LT wo CAD DATE OF EXAM: 01/21/2022 CLINICAL HISTORY: N63 BREAST LUMP/MASS. TECHNIQUE: Ultrasound guided core biopsy of left breast. COMPARISON: NONE FINDINGS: The procedure of ultrasound guided core biopsy was explained to the patient. Benefits, alt ernatives, and risks were discussed. An informed consent was then obtained. The patient was placed in supine positioning for imaging and for the procedure. The overlying skin w as prepped and draped in usual sterile fashion. Lidocaine buffered with bicarbonate was used as anes thetic into the skin and subcutaneous tissue up to area of concern in the left 2:00 breast. A rge w as made with surgical scalpel. Under ultrasound guidance, a 12-gauge vacuum assisted biopsy gun device was used to obtain 3 [address] [place] [address]. Following this, a biopsy clip was left in lesion. The patient tolerated the procedure well without any immediate complication. The patient was kept in the radiology department for short stay after the procedure and then discharged home in stable condi tion. IMPRESSION: Successful, uncomplicated ultrasound guided core biopsy of area of concern in the left 2: 00 breast, full pathology results to follow.
== END ==
LOC: RADUSWWP 12:19
PROVIDERS: ATTEND Surgery
DX: R92.8 Other abnormal and inconclusive findings on diagnostic imaging of breast (principal); N64.1 Fat necrosis of breast
CPT/HCPCS: 19083; 88305; 77065; A4648; J2001

== ENCOUNTER → 2022-01-31 | Outpatient (CLI) | payer OTHER ==
[2022-01-31 10:15] VITALS: BP 116/83; PULSE 71; RESP 18; TEMP 98
--- NOTE | 2022-01-31 10:34 | P.PN ---
Subjective Progress Note Date: 01/31/22 Principal diagnosis: high risk of breast cancer Ivett is a 41 year old who underwent a bilateral mammogram in Feb 20 2021 which did not show any lesions of concern, it was benign BIRADS 2. However recently, about 2 months ago she noted a palpable change in her left breast. This was a nodule near the nipple laterally in her left breast. It has increased in size at this time. It is not tender. She did not have any trauma or infection to the breast. She had an ultrasound of the left breast performed in . This revealed at the 2 o'clock position a 0.6 x 0.5 cm lesion for which core biopsy was recommended. This does not change in size with her menstrual periods. Of importance of is the fact that the patient has undergone bilateral reduction mammoplasty approximately 10 years ago. 01-31-22 Ivett underwent a core biopsy of the left breast on 01-21-22. Pathology was benign scar/fat necrosis. She tolerated the procedure without difficulty. The patient has a very strong family history of breast cancer and secondary to the fact that this is a palpable mass in her breast despite the fact it is benign she wishes it to be removed. Patient states it has increased in size and is uncomfortable/painful for her. Although she initially considered removal secondary to the fact that the core biopsy is benign at this time she is going to be followed conservatively. Caffiene: 3 cans MTN DEW/day nicotine: 1/2 PPD; 20 years BCP: < 1 year 20 years ago hormones: none Becca Risk evaluation: 5 year risk: 1.4% lifetime risk 11.3% Family History: 2 paternal aunt: breast cancer 2 paternal first cousins: breast cancer paternal grandmother: uterine cancer paternal aunt: blood cancer paternal uncle: leukemia paternal uncle: brain tumor Hormonal History: menarche: 10 , breast fed: no, age at first : 16 periods regular; LMP: 2 weeks ago BCP: in past Surgical History: 3 C sections breast biopsy right/ fibroadenoma removed right knee scope bilateral breast reduction mammoplasty July 2011 Medical History: GERD SVT supra- ventricular tachycardia Fibromyalgia Social History: Nicotine: Half a pack per day patient is planning to stop Alcohol:none drugs: Marijuana every night, for fibromyalgia Objective - Vital Signs Vital signs: Vital Signs Temp 98.0 F 01/31/22 10:13 Pulse 71 01/31/22 10:13 Resp 18 01/31/22 10:13 BP 116/83 01/31/22 10:13 Pulse Ox 98 01/31/22 10:13 Intake & Output 01/30/22 01/31/22 01/31/22 18:59 06:59 18:59 Weight 92.986 kg - Constitutional General appearance: Present: cooperative - EENT Eyes: Present: EOMI ENT: Present: hearing grossly normal - Neck Neck: Present: normal ROM - Respiratory Respiratory: bilateral: CTA - Cardiovascular Heart sounds: normal: S1, S2 - Integumentary Integumentary: Present: normal turgor - Musculoskeletal Musculoskeletal: Present: gait normal - Psychiatric Psychiatric: Present: A&O x's 3, appropriate affect, intact judgment & insight - Additional findings Additional findings: Breast Exam: Examination of the biopsy site reveals no evidence of ecchymosis or inflammation The patient has a persistent approximately 8 mm area of firm nodularity near the 2:00 periareolar region on the left Additional breast examination was not performed today From prior exam Block: 40 DD Inspection: Bilateral reduction mammoplasty incisions Palpation: Right breast: Multi-positional exam fibrocystic changes no dominant masses or nodules of concern Right axilla: No adenopathy of concern Left breast: Multiple positional exam fibrocystic changes no dominant masses or nodules of concern other than a 2:00 periareolar region 8 mm area of firm nodularity Left axilla: No adenopathy of concern Assessment and Plan Assessment: Impression: Palpable mass left breast which is uncomfortable/painful for the patient as well as increased in size; this is however benign on biopsy family history of breast cancer second degree relatives core biopsy results benign meet with medical oncology regarding chemo-prevention Plan: The patient at this time is going to be followed conservatively, she is not going to have surgical resection of the mass in the left breast. If it continues to grow or cause her pain then she will reconsider. At this time as per our biopsy it is benign. Genetic testing to evaluate risk of breast cancer Consider appointment with medical oncology regarding possible chemo-prevention repeat bilateral mammogram in February with appointment CC: Dr. Tomi Brizuela
== END | disposition home or self-care (01) ==
LOC: WWCWWP 10:01
PROVIDERS: ATTEND Surgery
DX: Z53.9 Procedure and treatment not carried out, unspecified reason (principal)

== ENCOUNTER → 2022-03-06 | Outpatient (CLI) | payer OTHER ==
--- NOTE | 2022-03-08 15:36 | MM ---
Reason for Exam: Screening (asymptomatic). Last screening mammogram was performed 12 month(s) ago. Patient History: Menarche at age 10. First Full-Term at age 16. Patient used Hormonal Contraceptives for 1 year. 10/2005, Excisional Biopsy on the Right side. 07/2011, Bilateral Reduction. 01/21/2022, Benign Core Biopsy on the left side. Paternal aunt had breast cancer, age 50. Paternal aunt had breast cancer, age 40. Last menstrual period: 02/26/2022 Risk Values: Becca 5 year model risk: 1.4%. NCI Lifetime model risk: 11.3%. Film Views: Bilateral CC views were taken. Bilateral MLO views were taken. Prior Study Comparison: 02/20/2021 Bilateral Screening Mammogram, [facility]. 02/20/2021 Bilateral Diagnostic Mammogram, [facility]. 01/21/2022 Left Diagnostic Mammogram, [facility]. Tissue Density: The breast tissue is extremely dense which could obscure a lesion on mammography. Findings: Analyzed By CAD. There are a few scattered benign-appearing round calcifications throughout both breasts redemonstrated. There is no suspicious group of microcalcifications or new suspicious mass in either breast. Overall Assessment: Negative, BI-RAD 1 Management: Screening Mammogram of both breasts in 1 year. Some advise annual bilateral breast ultrasound in patient's with background dense tissue. Electronically signed and approved by: Joseph Parrish M.D.
== END | disposition home or self-care (01) ==
LOC: RADMAMWWP 15:56
PROVIDERS: ATTEND Surgery
DX: Z12.31 Encounter for screening mammogram for malignant neoplasm of breast (principal)
CPT/HCPCS: 77063; 77067

== ENCOUNTER → 2022-04-22 | Outpatient (CLI) | payer OTHER ==
--- NOTE | 2022-04-23 08:22 | US ---
EXAMINATION TYPE: US thyroid st tissue head/neck DATE OF EXAM: 04/22/2022 COMPARISON: NONE CLINICAL HISTORY: E04.9 NONTOXIC GOITER. Goiter. GLAND SIZE: Right Lobe: 4.7 x 1.6 x 1.1 cm Overall Parenchyma: homogenous Left Lobe: 4.3 x 1.6 x 1.3 cm Overall Parenchyma: homogeneous Isthmus Thickness: 0.3 cm NODULES RIGHT: # of nodules measured on right: 1 less than 5 mm nodule seen. 1. 0.4 X 0.4 x 0.2 cm, lower mid, mixed cystic and solid, hypoechoic nodule, which is wider than ta ll, with smooth margins, with echogenic focus. Prior size: No prior LEFT: # of nodules measured on left: 0 1. 0.6 X 0.5 x 0.4 cm, mid-lower mid, solid or almost completely solid, hypoechoic nodule, which is wider than tall, with smooth margins, without echogenic focus. Prior size: No prior ISTHMUS: # of nodules measured in the isthmus: 0 Bilateral neck scanned, Hypoechoic area with hyperechoic center seen right neck: 1.3 x 1.5 x 0.3 cm. IMPRESSION: Nonspecific subcentimeter left-sided thyroid nodule.
== END | disposition home or self-care (01) ==
LOC: RADUSWWP 15:30
PROVIDERS: ATTEND Family Medicine
DX: E04.1 Nontoxic single thyroid nodule (principal)
CPT/HCPCS: 76536

== ENCOUNTER 2022-05-01 12:16 | Emergency (ER) | payer OTHER ==
[2022-05-01 12:23] VITALS: TEMP 98.1
[2022-05-01] MEDS ORDERED: KETOROLAC 15 MG/ML 1 ML VIAL IVP STA (13:28)
[2022-05-01] MEDS ORDERED: ONDANSETRON 4 MG/2 ML VIAL IVP STA (13:28)
[2022-05-01] MEDS ORDERED: SODIUM CHLORIDE 0.9% 1,000 ML IV STA (13:28)
--- NOTE | 2022-05-01 13:39 | ED ---
Abdominal Pain HPI - General Chief Complaint: Abdominal Pain Stated Complaint: lower abd and back pain Time Seen by Provider: 05/01/22 12:46 Source: patient, RN notes reviewed Mode of arrival: ambulatory Limitations: no limitations - History of Present Illness Initial Comments: This is a 41-year-old female who presents to the emergency department for lower abdominal and lower back pain. Patient states that this started yesterday. States that she feels like everything in her abdomen is just being squished together. The back pain is primarily in the lower back. States that she feels like the pressure from the abdomen is being pushed to the back. She has a history of diverticulitis, but states that she has never had symptoms like this before. She has had mild nausea but no vomiting. Also states that she has been very fatigued. Notes that she has been constipated as well. Denies any fevers, chills, sore throat, cough, dyspnea, chest pain, palpitations, vomiting, diarrhea, or headaches. MD Complaint: abdominal pain Onset/Timin -: days(s) Location: diffuse Associated Symptoms: nausea - Related Data Home Medications Medication Instructions Recorded Confirmed Cholecalciferol (Vitamin D3) 125 mcg PO DAILY 01/11/22 01/31/22 [Vitamin D3 (125 MCG = 5,000 IU)] Pantoprazole Sodium [Protonix] 40 mg PO DAILY 01/17/22 01/31/22 Previous Rx's Medication Instructions Recorded Diltiazem Cd [Cardizem CD] 120 mg PO DAILY #30 capsule 09/30/21 Amoxic-Pot Clav 875-125Mg 1 tab PO BID 10 Days #20 tab 05/01/22 [Augmentin 875-125] HYDROcodone/APAP 5-325MG [[place] 1 tab PO Q6HR PRN 3 Days #12 tab 05/01/22 5-325] Ondansetron Odt [Zofran Odt] 4 mg PO Q8HR PRN #15 tab 05/01/22 Allergies Allergy/AdvReac Type Severity Reaction Status Date / Time No Known Allergies Allergy Verified 05/01/22 12:23 Review of Systems ROS Statement: Those systems with pertinent positive or pertinent negative responses have been documented in the HPI. ROS Other: All systems not noted in ROS Statement are negative. Past Medical History Past Medical History: Fibromyalgia, GERD/Reflux, Hyperlipidemia Additional Past Medical History / Comment(s): Mildly elevated cholesterol-no RX yet. has event monitor for palpitations, migraines in past, "over active gallb ladder", hx of diverticulitis History of Any Multi-Drug Resistant Organisms: None Reported Past Surgical History: Breast Surgery, Section, Orthopedic Surgery, Tubal Ligation Additional Past Surgical History / Comment(s): right knee arthroscopy, bilateral breast reduction, x 3, EGD Past Anesthesia/Blood Transfusion Reactions: No Reported Reaction Past Psychological History: Anxiety Smoking Status: Current every day smoker Past Alcohol Use History: None Reported Past Drug Use History: Marijuana - Past Family History Father Family Medical History: No Reported History Mother Family Medical History: No Reported History Additional Family Medical History / Comment(s): . General Exam Limitations: no limitations General appearance: alert, in distress Head exam: Present: atraumatic, normocephalic, normal inspection Respiratory exam: Present: normal lung sounds bilaterally. Absent: respiratory distress, wheezes, rales, rhonchi, stridor Cardiovascular Exam: Present: regular rate, normal rhythm, normal heart sounds. Absent: systolic murmur, diastolic murmur, rubs, gallop, clicks GI/Abdominal exam: Present: soft, tenderness (diffuse), normal bowel sounds. Absent: distended, guarding, rebound, rigid Neurological exam: Present: alert, oriented X3, CN II-XII intact Psychiatric exam: Present: normal affect, normal mood Skin exam: Present: warm, dry, intact, normal color. Absent: rash Course Vital Signs 05/01/22 05/01/22 12:21 16:43 Temperature 98.1 F Pulse Rate 103 H 72 Respiratory 20 18 Rate Blood Pressure 132/101 O2 Sat by Pulse 99 98 Oximetry Medical Decision Making - Medical Decision Making This is a 41-year-old female who presents to the emergency department with abdominal pain and nausea. Lab work was nonactionable. Computed tomography scan of the abdomen and pelvis was consistent with diverticulitis. Prescriptions for Zofran, Augmentin, and Bates sent to the pharmacy. Instructed her to take the Bates sparingly when the pain is the most severe to otherwise take Tylenol and ibuprofen. She is also instructed to avoid driving or operating machinery when taking the Bates. Advised she increase her fiber intake and remain well-hydrated as well. Return precautions reviewed in depth, the patient is instructed to return to the emergency department with any new, worsening, or concerning symptoms. Patient verbalized understanding. This case was discussed in detail with the attending ED physician. Presentation, findings, and treatment plan discussed in detail as well. - Lab Data Result diagrams: 05/01/22 14:04 05/01/22 14:04 Lab Results 05/01/22 05/01/22 05/01/22 Range/Units 14:04 14:04 14:04 WBC 9.6 (3.8-10.6) k/uL RBC 4.80 (3.80-5.40) m/uL Hgb 13.1 (11.4-16.0) gm/dL Hct 41.0 (34.0-46.0) % MCV 85.4 (80.0-100.0) fL MCH 27.2 (25.0-35.0) pg MCHC 31.8 (31.0-37.0) g/dL RDW 14.2 (11.5-15.5) % Plt Count 330 (150-450) k/uL MPV 7.8 Neutrophils % 70 % Lymphocytes % 21 % Monocytes % 6 % Eosinophils % 1 % Basophils % 1 % Neutrophils # 6.7 (1.3-7.7) k/uL Lymphocytes # 2.1 (1.0-4.8) k/uL Monocytes # 0.6 (0-1.0) k/uL Eosinophils # 0.1 (0-0.7) k/uL Basophils # 0.1 (0-0.2) k/uL Sodium 136 L (137-145) mmol/L Potassium 4.3 (3.5-5.1) mmol/L Chloride 107 (98-107) mmol/L Carbon Dioxide 24 (22-30) mmol/L Anion Gap 5 mmol/L BUN 13 (7-17) mg/dL Creatinine 0.63 (0.52-1.04) mg/dL Est GFR (CKD-EPI)AfAm >90 (>60 ml/min/1.73 sqM) Est GFR (CKD-EPI)NonAf >90 (>60 ml/min/1.73 sqM) Glucose 89 (74-99) mg/dL Calcium 9.6 (8.4-10.2) mg/dL Total Bilirubin 0.6 (0.2-1.3) mg/dL AST 22 (14-36) U/L ALT 13 (4-34) U/L Alkaline Phosphatase 87 (38-126) U/L Total Protein 7.0 (6.3-8.2) g/dL Albumin 4.1 (3.5-5.0) g/dL Amylase 59 (30-110) U/L Lipase 162 (23-300) U/L Urine Color Yellow Urine Appearance Clear (Clear) Urine pH 6.0 (5.0-8.0) Ur Specific [place] 1.025 (1.001-1.035) Urine Protein Negative (Negative) Urine Glucose (UA) Negative (Negative) Urine Ketones Negative (Negative) Urine Blood Negative (Negative) Urine Nitrite Negative (Negative) Urine Bilirubin Negative (Negative) Urine Urobilinogen <2.0 (<2.0) mg/dL Ur Leukocyte Esterase Negative (Negative) Urine HCG, Qual (Not Detectd) 05/01/22 Range/Units 14:04 WBC (3.8-10.6) k/uL RBC (3.80-5.40) m/uL Hgb (11.4-16.0) gm/dL Hct (34.0-46.0) % MCV (80.0-100.0) fL MCH (25.0-35.0) pg MCHC (31.0-37.0) g/dL RDW (11.5-15.5) % Plt Count (150-450) k/uL MPV Neutrophils % % Lymphocytes % % Monocytes % % Eosinophils % % Basophils % % Neutrophils # (1.3-7.7) k/uL Lymphocytes # (1.0-4.8) k/uL Monocytes # (0-1.0) k/uL Eosinophils # (0-0.7) k/uL Basophils # (0-0.2) k/uL Sodium (137-145) mmol/L Potassium (3.5-5.1) mmol/L Chloride (98-107) mmol/L Carbon Dioxide (22-30) mmol/L Anion Gap mmol/L BUN (7-17) mg/dL Creatinine (0.52-1.04) mg/dL Est GFR (CKD-EPI)AfAm (>60 ml/min/1.73 sqM) Est GFR (CKD-EPI)NonAf (>60 ml/min/1.73 sqM) Glucose (74-99) mg/dL Calcium (8.4-10.2) mg/dL Total Bilirubin (0.2-1.3) mg/dL AST (14-36) U/L ALT (4-34) U/L Alkaline Phosphatase (38-126) U/L Total Protein (6.3-8.2) g/dL Albumin (3.5-5.0) g/dL Amylase (30-110) U/L Lipase (23-300) U/L Urine Color Urine Appearance (Clear) Urine pH (5.0-8.0) Ur Specific [place] (1.001-1.035) Urine Protein (Negative) Urine Glucose (UA) (Negative) Urine Ketones (Negative) Urine Blood (Negative) Urine Nitrite (Negative) Urine Bilirubin (Negative) Urine Urobilinogen (<2.0) mg/dL Ur Leukocyte Esterase (Negative) Urine HCG, Qual Not Detected (Not Detectd) - Radiology Data Radiology results: report reviewed, image reviewed Disposition Clinical Impression: Diverticulitis Disposition: HOME SELF-CARE Instructions (If sedation given, give patient instructions): Diverticulitis (ED) Additional Instructions: Return to the emergency department with any new, worsening, or concerning symptoms. Take the Augmentin as prescribed for 10 days. Use the Zofran up to every 8 hours as needed for nausea and vomiting. Take the Bates sparingly when your pain is the most severe and otherwise take antiinflammatories such as Ibuprofen. Increase dietary fiber intake. Follow up with your primary care provider in 1-2 days. Prescriptions: Amoxic-Pot Clav 875-125Mg [Augmentin 875-125] 1 tab PO BID 10 Days #20 tab HYDROcodone/APAP 5-325MG [Bates 5-325] 1 tab PO Q6HR PRN 3 Days #12 tab PRN Reason: Pain Ondansetron Odt [Zofran Odt] 4 mg PO Q8HR PRN #15 tab PRN Reason: Nausea And Vomiting Is patient prescribed a controlled substance at d/c from ED?: Yes When asked, does pt state using other controlled substances?: No If prescribed controlled substance>3 days was MAPS reviewed?: Prescribed <3 Days Referrals: Tomi Brizuela MD [Primary Care Provider] - 1-2 days
[2022-05-01 14:32] LABS: Basophils # (A) 0.1 k/uL (0-0.2); Basophils % (A) 1 %; Eosinophils # (A) 0.1 k/uL (0-0.7); Eosinophils % (A) 1 %; HGB 13.1 gm/dL (11.4-16.0); Lymphocytes # (A) 2.1 k/uL (1.0-4.8); Lymphocytes % (A) 21 %; MCH 27.2 pg (25.0-35.0); MCHC 31.8 g/dL (31.0-37.0); MCV 85.4 fL (80.0-100.0); Mean Platelet Volume 7.8; Monocytes # (A) 0.6 k/uL (0-1.0); Monocytes % (A) 6 %; Neutrophils # (A) 6.7 k/uL (1.3-7.7); Neutrophils % (A) 70 %; Platelet Count 330 k/uL (150-450); RDW 14.2 % (11.5-15.5); WBC 9.6 k/uL (3.8-10.6)
[2022-05-01 14:39] LABS: Appearance,Urine Clear (Clear); Bilirubin,Urine Negative (Negative); Blood,Urine Negative (Negative); Color,Urine Yellow; Glucose,Urine (UA) Negative (Negative); Ketones,Urine Negative (Negative); Leukocyte Esterase,Urine Negative (Negative); Nitrite,Urine Negative (Negative); Protein,Urine Negative (Negative); Specific Gravity,Urine 1.025 (1.001-1.035); Urobilinogen,Urine <2.0 mg/dL (<2.0)
[2022-05-01 14:47] LABS: ALT 13 U/L (4-34); AST 22 U/L (14-36); African American GFR (CKD) >90 (>60 ml/min/1.73 sqM); Albumin 4.1 g/dL (3.5-5.0); Alkaline Phosphatase 87 U/L (38-126); Amylase 59 U/L (30-110); Anion Gap 5 mmol/L; Blood Urea Nitrogen 13 mg/dL (7-17); Calcium 9.6 mg/dL (8.4-10.2); Carbon Dioxide 24 mmol/L (22-30); Chloride 107 mmol/L (98-107); Glucose 89 mg/dL (74-99); Lipase 162 U/L (23-300); Non-African American GFR(CKD) >90 (>60 ml/min/1.73 sqM); Potassium 4.3 mmol/L (3.5-5.1); Sodium 136 mmol/L (137-145); Total Bilirubin 0.6 mg/dL (0.2-1.3)
--- NOTE | 2022-05-01 15:53 | CT ---
EXAMINATION TYPE: CT abdomen pelvis w con DATE OF EXAM: 05/01/2022 COMPARISON: CT abdomen pelvis 04/04/2021 HISTORY: Abdominal pain, nausea and vomiting. CT DLP: 1463.9 mGycm Automated exposure control for dose reduction was used. TECHNIQUE: Helical acquisition of images from the lung bases through the pelvis have been completed. CONTRAST: Performed without Oral Contrast and with IV Contrast, patient injected with 100ml mL of Isovue 300. FINDINGS: LUNG BASES: No significant abnormality is appreciated. AORTA: No significant abnormality is appreciated. LIVER/GB: Liver shows low attenuation possibly due to hepatic steatosis. Hypodense focus laterally wi thin the right lobe shows a similar appearance and is somewhat less conspicuous on delayed imaging, p ossible hemangioma, gallbladder is unremarkable, liver at the upper limit of normal for size PANCREAS: No significant abnormality is seen. SPLEEN: Probable splenule present within the splenic hilum region. ADRENALS: No significant abnormality is seen. KIDNEYS: No significant abnormality is seen. REPRODUCTIVE ORGANS: Right ovarian cystic structure measures approximately 2.6 cm. Uterus is somewhat bulky, there may be underlying fibroid disease BOWEL: Sigmoid colon shows wall thickening, there is scattered diverticular change. Pericolonic incr eased attenuation present within the fat is noted, coronal image #60, axial image #67. The appendix i s normal. FREE AIR: No Free Air visible. ASCITES: None visible. PELVIC ADENOPATHY: None visualized. RETROPERITONEAL ADENOPATHY: No Retroperitoneal Adenopathy visible. URINARY BLADDER: No significant abnormality is seen. OSSEOUS STRUCTURES: No significant abnormality is seen. IMPRESSION: CORRELATE FOR DIVERTICULITIS POSSIBLY COLITIS, FOLLOW-UP SUGGESTED, INDETERMINATE COLONIC WALL THICKE PHILIP NOTED. RIGHT OVARIAN CYST.
[2022-05-01 16:44] VITALS: BP 132/101; PULSE 72; RESP 18
== END 2022-05-01 16:45 | disposition home or self-care (01) ==
LOC: EC 12:16
DX: K57.92 Diverticulitis of intestine, part unspecified, without perforation or abscess without bleeding (principal); K21.9 Gastro-esophageal reflux disease without esophagitis; F17.200 Nicotine dependence, unspecified, uncomplicated; Z79.899 Other long term (current) drug therapy
CPT/HCPCS: 36415; 80053; 82150; 83690; 85025; 81003; 81025; 74177; 99284; 96374; 96361; 96375; J2405; J1885; Q9967

== ENCOUNTER → 2022-10-30 | Outpatient (CLI) | payer OTHER ==
--- NOTE | 2022-10-30 12:35 | US ---
EXAMINATION TYPE: US thyroid st tissue head/neck DATE OF EXAM: 10/30/2022 COMPARISON: 05/03 US CLINICAL HISTORY: E04.1 thyroid nodule. Follow up on prior abnormal US, pt has no complaints, not on medication GLAND SIZE: Right Lobe: 4.4 x 1.4 x 1.6 cm Overall Parenchyma: mildly heterogeneous Left Lobe: 3.8 x 1.2 x 1.5 cm Overall Parenchyma: mildly heterogeneous Isthmus Thickness: 0.3 cm Bilateral neck scanned, no evidence of lymphadenopathy. Prior imaging showed single nodule at both sides mid to lower posterior pole. Tissue is diffusely he terogeneous, no distinct nodules seen at this scan. IMPRESSION: Heterogenous thyroid gland without visualization of nodules seen on prior. Correlate with serum marke rs.
== END | disposition home or self-care (01) ==
LOC: RADUSWWP 10:03
PROVIDERS: ATTEND Otolaryngology
DX: E07.89 Other specified disorders of thyroid (principal); E04.1 Nontoxic single thyroid nodule
CPT/HCPCS: 76536

== ENCOUNTER 2022-12-25 14:51 | Emergency (ER) | payer OTHER ==
[2022-12-25 15:47] VITALS: RESP 18
[2022-12-25 16:29] LABS: Basophils # (A) 0.1 k/uL (0-0.2); Basophils % (A) 1 %; Eosinophils # (A) 0.1 k/uL (0-0.7); Eosinophils % (A) 1 %; HCT 44.3 % (34.0-46.0); HGB 14.6 gm/dL (11.4-16.0); Lymphocytes # (A) 3.8 k/uL (1.0-4.8); Lymphocytes % (A) 34 %; MCH 27.9 pg (25.0-35.0); MCV 84.5 fL (80.0-100.0); Mean Platelet Volume 7.2; Monocytes # (A) 0.6 k/uL (0-1.0); Monocytes % (A) 5 %; Neutrophils # (A) 6.5 k/uL (1.3-7.7); Neutrophils % (A) 58 %; Platelet Count 399 k/uL (150-450); RBC 5.25 m/uL (3.80-5.40); RDW 13.9 % (11.5-15.5); WBC 11.2 k/uL (3.8-10.6)
[2022-12-25 16:47] LABS: Appearance,Urine Cloudy (Clear); Bilirubin,Urine Negative (Negative); Blood,Urine Small (Negative); Color,Urine Yellow; Glucose,Urine (UA) Negative (Negative); Ketones,Urine Negative (Negative); Leukocyte Esterase,Urine Negative (Negative); Mucus,Urine Occasional /hpf; Nitrite,Urine Negative (Negative); PH, Urine 7.5 (5.0-8.0); Protein,Urine Negative (Negative); Specific Gravity,Urine 1.017 (1.001-1.035); Squamous Epithelial Cell,Urine 8 /hpf (0-4); Urobilinogen,Urine <2.0 mg/dL (<2.0); WBC,Urine 1 /hpf (0-5)
--- NOTE | 2022-12-25 17:10 | CT ---
EXAMINATION TYPE: CT lumbar spine wo con DATE OF EXAM: 12/25/2022 COMPARISON: None HISTORY: back pain and down both legs, no injury CT DLP: 1365.6 mGycm Automated exposure control for dose reduction was used. Images obtained from T12 to S2 vertebra with no contrast. The lumbar vertebra have normal spacing and alignment. Posterior elements are intact. Facet joints ar e intact. No compression fracture. No evidence of any significant lumbar disc herniation. There is no paraspinal mass. No evidence of spinal stenosis. Sacroiliac joints are intact. IMPRESSION: Lumbar spine appears fairly normal for age. No fracture. No spinal stenosis.
[2022-12-25 17:46] LABS: ALT 25 U/L (4-34); AST 18 U/L (14-36); African American GFR (CKD) >90 (>60 ml/min/1.73 sqM); Albumin 4.4 g/dL (3.5-5.0); Alkaline Phosphatase 124 U/L (38-126); Anion Gap 8 mmol/L; Blood Urea Nitrogen 12 mg/dL (7-17); Calcium 9.4 mg/dL (8.4-10.2); Carbon Dioxide 24 mmol/L (22-30); Chloride 104 mmol/L (98-107); Glucose 85 mg/dL (74-99); Non-African American GFR(CKD) >90 (>60 ml/min/1.73 sqM); Potassium 4.2 mmol/L (3.5-5.1); Sodium 136 mmol/L (137-145); Total Bilirubin 0.4 mg/dL (0.2-1.3); Total Protein 7.2 g/dL (6.3-8.2)
[2022-12-25] MEDS ORDERED: KETOROLAC 15 MG/ML 1 ML VIAL IVP STA (17:49)
[2022-12-25] MEDS ORDERED: SODIUM CHLORIDE 0.9% 500 ML 500 ML IV ONE (17:49)
[2022-12-25] MEDS ORDERED: ACET/COD 300 MG/30 MG STARTER PACK 6 TAB BTL PO STA (18:44)
--- NOTE | 2022-12-25 18:44 | ED ---
General Adult HPI - General Chief complaint: Back Pain/Injury Stated complaint: back pain Time Seen by Provider: 12/25/22 16:12 Source: patient, RN notes reviewed Mode of arrival: ambulatory Limitations: no limitations - History of Present Illness Initial comments: 42-year-old female with past medical history significant for fibromyalgia presents to the emergency department with a chief complaint of low back pain. She reports that she's had low back pain on and off for approximately 1 year and a half. She is also complaining of accompanying symptoms of "bladder pain due to her interstitial cystitis." She also reports feeling a sensation of needing to have a bowel movement however when she sits on the toilet it will was a hole without passing a bowel movement. She denies any fevers, chills, flank pain, dysuria, hematuria, melena, hematochezia. She has been evaluated for this multiple times. She reports that she is "here to find answers." - Related Data Home Medications Medication Instructions Recorded Confirmed Cholecalciferol (Vitamin D3) 125 mcg PO DAILY 01/11/22 01/31/22 [Vitamin D3 (125 MCG = 5,000 IU)] Pantoprazole Sodium [Protonix] 40 mg PO DAILY 01/17/22 01/31/22 Previous Rx's Medication Instructions Recorded Diltiazem Cd [Cardizem CD] 120 mg PO DAILY #30 capsule 09/30/21 Amoxic-Pot Clav 875-125Mg 1 tab PO BID 10 Days #20 tab 05/01/22 [Augmentin 875-125] HYDROcodone/APAP 5-325MG [[place] 1 tab PO Q6HR PRN 3 Days #12 tab 05/01/22 5-325] Ondansetron Odt [Zofran Odt] 4 mg PO Q8HR PRN #15 tab 05/01/22 Allergies Allergy/AdvReac Type Severity Reaction Status Date / Time No Known Allergies Allergy Verified 12/25/22 15:47 Review of Systems ROS Statement: Those systems with pertinent positive or pertinent negative responses have been documented in the HPI. ROS Other: All systems not noted in ROS Statement are negative. Past Medical History Past Medical History: Fibromyalgia, GERD/Reflux, Hyperlipidemia Additional Past Medical History / Comment(s): Mildly elevated cholesterol-no RX yet. has event monitor for palpitations, migraines in past, "over active gallbladder", hx of diverticulitis History of Any Multi-Drug Resistant Organisms: None Reported Past Surgical History: Breast Surgery, Section, Orthopedic Surgery, Tubal Ligation Additional Past Surgical History / Comment(s): right knee arthroscopy, bilateral breast reduction, x 3, EGD Past Anesthesia/Blood Transfusion Reactions: No Reported Reaction Past Psychological History: Anxiety Smoking Status: Current every day smoker Past Alcohol Use History: None Reported Past Drug Use History: Marijuana - Past Family History Father Family Medical History: No Reported History Mother Family Medical History: No Reported History Additional Family Medical History / Comment(s): . General Exam Limitations: no limitations General appearance: alert, in no apparent distress Head exam: Present: atraumatic, normocephalic, normal inspection Eye exam: Present: normal appearance, PERRL, EOMI. Absent: scleral icterus, conjunctival injection, periorbital swelling ENT exam: Present: normal exam, mucous membranes moist Neck exam: Present: normal inspection. Absent: tenderness, meningismus, lymphadenopathy Respiratory exam: Present: normal lung sounds bilaterally. Absent: respiratory distress, wheezes, rales, rhonchi, stridor Cardiovascular Exam: Present: regular rate, normal rhythm, normal heart sounds. Absent: systolic murmur, diastolic murmur, rubs, gallop, clicks GI/Abdominal exam: Present: soft, normal bowel sounds. Absent: distended, tenderness, guarding, rebound, rigid Extremities exam: Present: normal inspection, full ROM, normal capillary refill. Absent: tenderness, pedal edema, joint swelling, calf tenderness Back exam: Present: normal inspection Neurological exam: Present: alert, oriented X3, CN II-XII intact Psychiatric exam: Present: normal affect, normal mood Skin exam: Present: warm, dry, intact, normal color. Absent: rash Course Vital Signs 12/25/22 12/25/22 15:44 19:10 Temperature 98.2 F 98.0 F Pulse Rate 124 H 74 Respiratory 18 Rate Blood Pressure 172/120 139/95 O2 Sat by Pulse 99 97 Oximetry Medical Decision Making - Medical Decision Making Was pt. sent in by a medical professional or institution (, PA, SHORT ORDER COOK, urgent care, hospital, or shelter...) When possible be specific @ -[No] Did you speak to anyone other than the patient for history (EMS, parent, family, police, friend...)? What history was obtained from this source @ -[No] Did you review nursing and triage notes (agree or disagree)? Why? @ -[I reviewed and agree with nursing and triage notes] Were old charts reviewed (outside hosp., previous admission, EMS record, old EKG, old radiological studies, urgent care reports/EKG's, shelter records)? Report findings @ -[No old charts were reviewed] Differential Diagnosis (chest pain, altered mental status, abdominal pain women, abdominal pain men, vaginal bleeding, weakness, fever, dyspnea, syncope, headache, dizziness, GI bleed, back pain, seizure, CVA, palpatations, mental health, musculoskeletal)? @ -[not applicable] EKG interpreted by me (3pts min.). @ -[As above] X-rays interpreted by me (1pt min.). @ -[None done] CT interpreted by me (1pt min.). @ -CT lumbar spine negative for any evidence of acute process U/S interpreted by me (1pt. min.). @ -[None done] What testing was considered but not performed or refused? (CT, X-rays, U/S, lab s)? Why? @ -[None] What meds were considered but not given or refused? Why? @ -[None] Did you discuss the management of the patient with other professionals (professionals i.e. , PA, SHORT ORDER COOK, lab, RT, psych nurse, social work msw, corporate legal manager, teacher, ship's officer, family preservation caseworker)? Give summary @ -[No] Was smoking cessation discussed for >3mins.? @ -[No] Was critical care preformed (if so, how long)? @ -[No] Were there social determinants of health that impacted care today? How? (Homelessness, low income, unemployed, alcoholism, drug addiction, transportation, low edu. Level, literacy, decrease access to med. care, shelter, rehab)? @ -[No] Was there de-escalation of care discussed even if they declined (Discuss DNR or withdrawal of care, Hospice)? DNR status @ -[No] What co-morbidities impacted this encounter? (DM, HTN, Smoking, COPD, CAD, Cancer, CVA, ARF, Chemo, Hep., AIDS, mental health diagnosis, sleep apnea, morbid obesity)? @ -[None] Was patient admitted / discharged? Hospital course, mention meds given and route, prescriptions, significant lab abnormalities, going to OR and other per tinent info. @ -This is a 42-year-old female with no significant past medical history who presents to the emergency department, abdominal and back pain. Patient had a history and physical exam performed, heart rate regular rate and rhythm, lungs clear to auscultation bilaterally, abdomen soft and nontender. Vitals stable. Labs and imaging were essentially unremarkable. I discussed the results in detail with the patient verbalized understanding all questions were addressed. Return precautions were discussed. Patient was discharged in discussed with PARVIZ Darnell who agrees with plan of care Undiagnosed new problem with uncertain prognosis? @ -[No] Drug Therapy requiring intensive monitoring for toxicity (Heparin, Nitro, Insulin, Cardizem)? @ -[No] Were any procedures done? @ -[No] Diagnosis/symptom? @ -chronic abdominal pain Acute, or Chronic, or Acute on Chronic? @ -acute Uncomplicated (without systemic symptoms) or Complicated (systemic symptoms)? @ -uncomplicated Side effects of treatment? @ -[No] Exacerbation, Progression, or Severe Exacerbation? @ -[No] Poses a threat to life or bodily function? How? (Chest pain, [place], [place], pneumonia, PE, COPD, DKA, ARF, appy, cholecystitis, CVA, Diverticulitis, Homicidal, Suicidal, threat to staff... and all critical care pts) @ -low likelihood - Lab Data Result diagrams: 12/25/22 16:09 12/25/22 16:57 Lab Results 12/25/22 12/25/22 12/25/22 Range/Units 16:09 16:09 16:57 WBC 11.2 H (3.8-10.6) k/uL RBC 5.25 (3.80-5.40) m/uL Hgb 14.6 (11.4-16.0) gm/dL Hct 44.3 (34.0-46.0) % MCV 84.5 (80.0-100.0) fL MCH 27.9 (25.0-35.0) pg MCHC 33.0 (31.0-37.0) g/dL RDW 13.9 (11.5-15.5) % Plt Count 399 (150-450) k/uL MPV 7.2 Neutrophils % 58 % Lymphocytes % 34 % Monocytes % 5 % Eosinophils % 1 % Basophils % 1 % Neutrophils # 6.5 (1.3-7.7) k/uL Lymphocytes # 3.8 (1.0-4.8) k/uL Monocytes # 0.6 (0-1.0) k/uL Eosinophils # 0.1 (0-0.7) k/uL Basophils # 0.1 (0-0.2) k/uL Sodium 136 L (137-145) mmol/L Potassium 4.2 (3.5-5.1) mmol/L Chloride 104 (98-107) mmol/L Carbon Dioxide 24 (22-30) mmol/L Anion Gap 8 mmol/L BUN 12 (7-17) mg/dL Creatinine 0.60 (0.52-1.04) mg/dL Est GFR (CKD-EPI)AfAm >90 (>60 ml/min/1.73 sqM) Est GFR (CKD-EPI)NonAf >90 (>60 ml/min/1.73 sqM) Glucose 85 (74-99) mg/dL Calcium 9.4 (8.4-10.2) mg/dL Total Bilirubin 0.4 (0.2-1.3) mg/dL AST 18 (14-36) U/L ALT 25 (4-34) U/L Alkaline Phosphatase 124 (38-126) U/L Total Protein 7.2 (6.3-8.2) g/dL Albumin 4.4 (3.5-5.0) g/dL Urine Color Yellow Urine Appearance Cloudy H (Clear) Urine pH 7.5 (5.0-8.0) Ur Specific [place] 1.017 (1.001-1.035) Urine Protein Negative (Negative) Urine Glucose (UA) Negative (Negative) Urine Ketones Negative (Negative) Urine Blood Small H (Negative) Urine Nitrite Negative (Negative) Urine Bilirubin Negative (Negative) Urine Urobilinogen <2.0 (<2.0) mg/dL Ur Leukocyte Esterase Negative (Negative) Urine WBC 1 (0-5) /hpf Ur Squamous Epith Cells 8 H (0-4) /hpf Urine Mucus Occasional H (None) /hpf Disposition Clinical Impression: Back pain, Interstitial cystitis Disposition: HOME SELF-CARE Condition: Stable Additional Instructions: Please return to the nearest emergency Department if blood in urine, blood in stool, fevers develop These follow-up with Dr. Brizuela's office in 1 week. Please return to the nearest emergency department if symptoms worsen or persist Is patient prescribed a controlled substance at d/c from ED?: No Referrals: Tomi Brizuela MD [Primary Care Provider] - 1-2 days Time of Disposition: 18:42
[2022-12-25 19:12] VITALS: BP 139/95; PULSE 74; TEMP 98
== END 2022-12-25 19:50 | disposition home or self-care (01) ==
LOC: EC 14:51
DX: N30.10 Interstitial cystitis (chronic) without hematuria (principal); M54.50 Low back pain, unspecified; F17.200 Nicotine dependence, unspecified, uncomplicated; F12.90 Cannabis use, unspecified, uncomplicated; K21.9 Gastro-esophageal reflux disease without esophagitis; Z79.899 Other long term (current) drug therapy; Z98.51 Tubal ligation status
CPT/HCPCS: 36415; 80053; 85025; 81001; 72131; 99284; 96374; 96361; J1885

== ENCOUNTER → 2023-03-07 | Outpatient (CLI) | payer OTHER ==
--- NOTE | 2023-03-11 07:32 | MM ---
Reason for Exam: Screening (asymptomatic). Last screening mammogram was performed 12 month(s) ago. Patient History: Menarche at age 10. First Full-Term at age 16. Patient used Hormonal Contraceptives for 1 year. 10/2005, Excisional Biopsy on the Right side. 07/2011, Bilateral Reduction. 01/21/2022, Benign Core Biopsy on the left side. Paternal aunt had breast cancer, age 50. Paternal aunt had breast cancer, age 40. Risk Values: Becca 5 year model risk: 1.5%. NCI Lifetime model risk: 11.1%. Prior Study Comparison: 02/20/2021 Bilateral Diagnostic Mammogram, [facility]. 01/21/2022 Left Diagnostic Mammogram, [facility]. 03/06/2022 Bilateral MG 3D screening mammo w/cad, [facility]. Tissue Density: The breast tissue is heterogeneously dense. This may lower the sensitivity of mammography. Findings: Analyzed By CAD. Left breast enlarging round mass at middle depth 5.4 cm from nipple measuring 26 mm. Right breast: There is no suspicious group of microcalcifications or new suspicious mass in either breast. Overall Assessment: Incomplete: need additional imaging evaluation, BI-RAD 0 Management: Diagnostic Breast Ultrasound of the left breast. [facility] will attempt to contact patient to return for supplemental views and ultrasound if indicated. Patient should continue monthly self-breast exams. A clinical breast exam by your physician is recommended on an annual basis. This exam should not preclude additional follow-up of suspicious palpable abnormalities. Note on Becca scores and lifetime risk: 1. A Becca score greater than 3% is considered moderate risk. If this is the case, consider specialist referral to assess eligibility for a risk reducing agent. 2. If overall lifetime risk for the development of breast cancer is 20% or higher, the patient may qualify for future screening with alternating mammogram and breast MRI. Electronically signed and approved by: Jorge Isaacs DO
== END | disposition home or self-care (01) ==
LOC: RADMAMWWP 08:41
PROVIDERS: ATTEND Surgery
DX: Z12.31 Encounter for screening mammogram for malignant neoplasm of breast (principal); Z80.3 Family history of malignant neoplasm of breast
CPT/HCPCS: 77063; 77067

== ENCOUNTER → 2023-03-13 | Outpatient (CLI) | payer OTHER ==
--- NOTE | 2023-03-13 08:53 | USB ---
Reason for Exam: Additional evaluation requested from abnormal screening. Patient History: Menarche at age 10. First Full-Term at age 16. Patient used Hormonal Contraceptives for 1 year. 10/2005, Excisional Biopsy on the Right side. 07/2011, Bilateral Reduction. 01/21/2022, Benign Core Biopsy on the left side. Paternal aunt had breast cancer, age 50. Paternal aunt had breast cancer, age 40. Risk Values: Becca 5 year model risk: 1.5%. NCI Lifetime model risk: 11.1%. Technique: Method: Targeted. Prior Study Comparison: 01/21/2022 Left Diagnostic Mammogram, [facility]. 03/06/2022 Bilateral MG 3D screening mammo w/cad, [facility]. 03/07/2023 Bilateral MG 3D screening mammo w/cad, [facility]. Findings: The upper outer quadrant of the left breast, the axilla of the left breast and the retroareolar of the left breast were scanned. Imaged: Ultrasound imaging of: Area of concern, retroareolar region and axilla. Hypoechoic oval mass with circumscribed borders measuring 1.9 x 2.2 x 1.1 cm. Overall Assessment: Suspicious, BI-RAD 4 Management: Ultrasound Core Biopsy of the left breast. Findings favored represent fibroadenoma, tissue sampling for confirmation recommended. A clinical breast exam by your physician is recommended on an annual basis and results should be correlated with mammographic findings. This exam should not preclude additional follow-up of suspicious palpable abnormalities. Results were given to the patient verbally at the time of exam. Electronically signed and approved by: Jorge Isaacs DO
== END | disposition home or self-care (01) ==
LOC: RADUSWWP 08:16
PROVIDERS: ATTEND Surgery
DX: R92.8 Other abnormal and inconclusive findings on diagnostic imaging of breast (principal); Z80.3 Family history of malignant neoplasm of breast

== ENCOUNTER → 2023-03-13 | Outpatient (CLI) | payer OTHER ==
--- NOTE | 2023-03-13 09:36 | P.PN ---
Subjective Progress Note Date: 03/13/23 Principal diagnosis: abnormal left breast ultrasound Ivett is a 42 year old who underwent a bilateral mammogram in Feb 20 2021 which did not show any lesions of concern, it was benign BIRADS 2. However recently, about 2 months ago she noted a palpable change in her left breast. This was a nodule near the nipple laterally in her left breast. It has increased in size at this time. It is not tender. She did not have any trauma or infection to the breast. She had an ultrasound of the left breast performed in . This revealed at the 2 o'clock position a 0.6 x 0.5 cm lesion for which core biopsy was recommended. This does not change in size with her menstrual efra ods. Of importance of is the fact that the patient has undergone bilateral reduction mammoplasty approximately 10 years ago. She had a core biopsy of the left breast on 01-21-22 which revealed fat necrosis. She ahd a bilateral mammogram on 03-07-23 which showed a lesion in the left breast for which ultrasound was recommended. This was done on 03-13-23 and a 1.9 by 2.2 cm lesion was noted for which biopsy was recommended. Becca five-year risk: 1.5% NCI lifetime risk: 11.1% Caffiene: 3 cans MTN DEW/day nicotine: 1/2 PPD; 20 years BCP: < 1 year 20 years ago hormones: none Family History: 2 paternal aunt: breast cancer 2 paternal first cousins: breast cancer paternal grandmother: uterine cancer paternal aunt: blood cancer paternal uncle: leukemia paternal uncle: brain tumor Hormonal History: menarche: 10 , breast fed: no, age at first : 16 periods regular; LMP: 2 weeks ago BCP: in past Surgical History: 3 C sections breast biopsy right/ fibroadenoma removed right knee scope Medical History: GERD SVT supra- ventricular tachycardia Fibromyalgia Social History: Nicotine: Half a pack per day in the past now down to 1/3 PPD Alcohol:none drugs: Marijuana every night, for fibromyalgia - Constitutional Constitutional: Reports sweats - EENT Eyes: denies blurred vision, denies pain Ears: deny: decreased hearing, tinnitus Ears, nose, mouth and throat: Reports headache, Denies sore throat - Breasts Breasts: bilateral: as per HPI - Cardiovascular Cardiovascular: Denies chest pain, Denies shortness of breath - Respiratory Respiratory: Denies cough - Gastrointestinal Comment: IBS, GERD Gastrointestinal: Reports as per HPI, Denies abdominal pain, Denies diarrhea, Denies nausea, Denies vomiting - Genitourinary (Female) Genitourinary: Denies dysuria, Denies hematuria, interstitial cystitis - Menstruation Menstruation: Reports period normal - Musculoskeletal Comment: fibromyalgia - Integumentary Integumentary: Denies pruritus, Denies rash - Neurological Neurological: Denies numbness, Denies weakness - Psychiatric Psychiatric: Denies anxiety, Denies depression - Endocrine Endocrine: Reports fatigue, Denies weight change - Hematologic/Lymphatic Comment: none - Allergic/Immunologic Allergic/Immunologic: Reports seasonal allergies Past Medical History Past Medical History: Fibromyalgia, GERD/Reflux, Hyperlipidemia Additional Past Medical History / Comment(s): Mildly elevated cholesterol-no RX yet. has event monitor for palpitations, migraines in past, "over active gallbladder", hx of diverticulitis History of Any Multi-Drug Resistant Organisms: None Reported Past Surgical History: Breast Surgery, Section, Orthopedic Surgery, Tubal Ligation Additional Past Surgical History / Comment(s): right knee arthroscopy, bilateral breast reduction, x 3, EGD Past Anesthesia/Blood Transfusion Reactions: No Reported Reaction Past Psychological History: Anxiety Additional Psychological History / Comment(s): Pt resides with her spouse. She is independent. No current issues with anxiety Smoking Status: Current every day smoker Past Alcohol Use History: None Reported Additional Past Alcohol Use History / Comment(s): Pt started smoking in 1996, smokes 1/2 PPD Past Drug Use History: Marijuana - Past Family History Father Family Medical History: No Reported History Mother Family Medical History: No Reported History Additional Family Medical History / Comment(s): . Medications and Allergies Home Medications Medication Instructions Recorded Confirmed Type Diltiazem Cd [Cardizem CD] 120 mg PO DAILY #30 capsule 09/30/21 01/17/22 Rx Cholecalciferol (Vitamin D3) 125 mcg PO DAILY 01/11/22 01/17/22 History [Vitamin D3 (125 MCG = 5,000 IU)] Pantoprazole Sodium [Protonix] 40 mg PO DAILY 01/17/22 01/17/22 History Allergies Allergy/AdvReac Type Severity Reaction Status Date / Time No Known Allergies Allergy Verified 01/17/22 08:51 Objective - Constitutional General appearance: Present: cooperative - EENT Eyes: Present: EOMI ENT: Present: hearing grossly normal - Neck Neck: Present: normal ROM - Respiratory Respiratory: bilateral: CTA - Cardiovascular Rhythm: regular Heart sounds: normal: S1, S2 - Gastrointestinal General gastrointestinal: Present: soft - Integumentary Integumentary: Present: normal turgor - Musculoskeletal Musculoskeletal: Present: gait normal - Psychiatric Psychiatric: Present: A&O x's 3, appropriate affect, intact judgment & insight - Additional findings Additional findings: Breast Exam: BRA: 40DD inspection: bilateral reduction mammoplasty incisions palpation: right breast; multiple positional exam fibrocystic changes no dominant masses or nodules of concern within the parenchyma of the breast, at the 11 o'clock position there is a subcutaneous area of nodularity believed to be scar tissue Right axilla: No adenopathy of concern Left breast: Multiple positional exam fibrocystic changes no dominant masses or nodules of concern the 2:00 periareolar region approximately 8 mm area of firm nodularity which was palpated last year is not palpated on today's exam Left axilla: No adenopathy of concern fungal infection under both breast Assessment and Plan Assessment: Impression: no palpable left breast mass Abnormal left breast ultrasound Prior bilateral reduction mammoplasty Strong family history of breast cancer genteic testing done and negative done 2021 Plan: Ultrasound core biopsy lesion of concern in the left breast nystatin for fungal infection under breast Close surveillance, patient yesenia 5 year risk is 1.5%, NCI lifetime risk 11.1% follow up after biopsy CC: Dr. Tomi Brizuela
[2023-03-13 09:37] VITALS: BP 137/94; PULSE 85; RESP 16; TEMP 97.9
== END ==
LOC: WWCWWP 08:15
PROVIDERS: ATTEND Surgery
DX: Z80.3 Family history of malignant neoplasm of breast (principal); K21.9 Gastro-esophageal reflux disease without esophagitis; F41.9 Anxiety disorder, unspecified; M79.7 Fibromyalgia; E78.5 Hyperlipidemia, unspecified; F17.210 Nicotine dependence, cigarettes, uncomplicated

== ENCOUNTER → 2023-03-26 | Day surgery (SDC) | payer OTHER ==
--- NOTE | 2023-03-31 12:05 | MM ---
Reason for Exam: Post Procedure Mammogram. Last screening mammogram was performed less than 1 month ago. Patient History: Menarche at age 10. First Full-Term at age 16. Patient used Hormonal Contraceptives for 1 year. 10/2005, Excisional Biopsy on the Right side. 07/2011, Bilateral Reduction. 01/21/2022, Benign Core Biopsy on the left side. Paternal aunt had breast cancer, age 50. Paternal aunt had breast cancer, age 40. Risk Values: Becca 5 year model risk: 1.5%. NCI Lifetime model risk: 11.1%. Prior Study Comparison: 01/21/2022 Left Diagnostic Mammogram, [facility]. 03/06/2022 Bilateral MG 3D screening mammo w/cad, [facility]. 03/07/2023 Bilateral MG 3D screening mammo w/cad, [facility]. Tissue Density: Left: The breast tissue is heterogeneously dense. This may lower the sensitivity of mammography. Pathology Description: Location: 2 o'clock. Marker Left Behind. Needle Type: Mammotome Cores: 5 Skin Nicks: 1 Gauge: 13 The procedure of ultrasound guided core biopsy was explained to the patient. Benefits, alternatives, and risks were discussed. An informed consent was then obtained. A timeout was performed. The patient was placed in supine positioning for imaging and for the procedure. The overlying skin was prepped and draped in usual sterile fashion. Lidocaine was used as anesthetic into the skin and subcutaneous tissue up to area of concern in the left breast. A small skin reg was made with surgical scalpel. Under ultrasound guidance, a 12-gauge vacuum assisted biopsy gun device was used to obtain 5 core samples. A biopsy clip was left in lesion. A top hat finishing materials preparer was placed. The patient tolerated the procedure well without any immediate complication. The patient was kept in the radiology department for short stay after the procedure and then discharged home in stable condition. Postprocedure mammogram: The patient was transferred to mammography for physician ordered post procedure mammogram for clip placement verification. Impression: Successful ultrasound guided core biopsy of area of concern in the left breast, full pathology results to follow. Recommendations: 1. Recommendations are pending pathology results. Pathology Results: Result: Benign, Fibroadenoma. 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 Overall Assessment: Benign Assessment: MG diagnostic mammo LT wo CAD. - Left: Benign, BI-RAD 2. Management: Diagnostic Mammogram of the left breast in 6 months. Electronically signed and approved by: Alfonzo Ornelas D.O. Radiologis
== END ==
LOC: RADUSWWP 07:43
PROVIDERS: ATTEND Surgery
DX: D24.2 Benign neoplasm of left breast (principal)
CPT/HCPCS: 88305; 77065; 19083; A4648

== ENCOUNTER → 2023-04-10 | Outpatient (CLI) | payer OTHER ==
--- NOTE | 2023-04-10 08:44 | P.PN ---
Subjective Progress Note Date: 04/10/23 Principal diagnosis: fibroadenoma left breast abnormal left breast ultrasound Ivett is a 42 year old who underwent a bilateral mammogram in Feb 20 2021 which did not show any lesions of concern, it was benign BIRADS 2. However recently, about 2 months ago she noted a palpable change in her left breast. This was a nodule near the nipple laterally in her left breast. It has increased in size at this time. It is not tender. She did not have any trauma or infection to the breast. She had an ultrasound of the left breast performed in . This revealed at the 2 o'clock position a 0.6 x 0.5 cm lesion for which core biopsy was recommended. This does not change in size with her menstrual periods. Of importance of is the fact that the patient has undergone bilateral reduction mammoplasty approximately 10 years ago. She had a core biopsy of the left breast on 01-21-22 which revealed fat necrosis. She had a bilateral mammogram on 03-07-23 which showed a lesion in the left breast for which ultrasound was recommended. This was done on 03-13-23 and a 1.9 by 2.2 cm lesion was noted for which biopsy was recommended. A core biopsy of the left breast lesion noted on ultrasound on 03-13-23 revealed a fibroadenoma. She does not feel anything that she is worried about at this time. She tolerated the biopsy without difficulty. The patient has been seen by Dr. King and attempted a trial of chemoprophylaxis/tamoxifen however could not tolerate this. Therefore she is going to be followed conservatively closely. Patient has had genetic testing done and was negative. Becca five-year risk: 1.5% NCI lifetime risk: 11.1% Caffiene: 3 cans MTN DEW/day nicotine: 1/2 PPD; 20 years BCP: < 1 year 20 years ago hormones: none Family History: 2 paternal aunt: breast cancer 2 paternal first cousins: breast cancer paternal grandmother: uterine cancer paternal aunt: blood cancer paternal uncle: leukemia paternal uncle: brain tumor Hormonal History: menarche: 10 , breast fed: no, age at first : 16 periods regular; LMP: 2 weeks ago BCP: in past Surgical History: 3 C sections breast biopsy right/ fibroadenoma removed right knee scope Medical History: GERD SVT supra- ventricular tachycardia Fibromyalgia Social History: Nicotine: Half a pack per day in the past now down to 1/3 PPD Alcohol:none drugs: Marijuana every night, for fibromyalgia - Constitutional Constitutional: Reports sweats - EENT Eyes: denies blurred vision, denies pain Ears: deny: decreased hearing, tinnitus Ears, nose, mouth and throat: Reports headache, Denies sore throat - Breasts Breasts: bilateral: as per HPI - Cardiovascular Cardiovascular: Denies chest pain, Denies shortness of breath - Respiratory Respiratory: Denies cough - Gastrointestinal Comment: IBS, GERD Gastrointestinal: Reports as per HPI, Denies abdominal pain, Denies diarrhea, Denies nausea, Denies vomiting - Genitourinary (Female) Genitourinary: Denies dysuria, Denies hematuria, interstitial cystitis - Menstruation Menstruation: Reports period normal - Musculoskeletal Comment: fibromyalgia - Integumentary Integumentary: Denies pruritus, Denies rash - Neurological Neurological: Denies numbness, Denies weakness - Psychiatric Psychiatric: Denies anxiety, Denies depression - Endocrine Endocrine: Reports fatigue, Denies weight change - Hematologic/Lymphatic Comment: none - Allergic/Immunologic Allergic/Immunologic: Reports seasonal allergies Past Medical History Past Medical History: Fibromyalgia, GERD/Reflux, Hyperlipidemia Additional Past Medical History / Comment(s): Mildly elevated cholesterol-no RX yet. has event monitor for palpitations, migraines in past, "over active gallbladder", hx of diverticulitis History of Any Multi-Drug Resistant Organisms: None Reported Past Surgical History: Breast Surgery, Section, Orthopedic Surgery, Tubal Ligation Additional Past Surgical History / Comment(s): right knee arthroscopy, bilateral breast reduction, x 3, EGD Past Anesthesia/Blood Transfusion Reactions: No Reported Reaction Past Psychological History: Anxiety Additional Psychological History / Comment(s): Pt resides with her spouse. She is independent. No current issues with anxiety Smoking Status: Current every day smoker Past Alcohol Use History: None Reported Additional Past Alcohol Use History / Comment(s): Pt started smoking in 1996, smokes 1/2 PPD Past Drug Use History: Marijuana - Past Family History Father Family Medical History: No Reported History Mother Family Medical History: No Reported History Additional Family Medical History / Comment(s): . Medications and Allergies Home Medications Medication Instructions Recorded Confirmed Type Diltiazem Cd [Cardizem CD] 120 mg PO DAILY #30 capsule 12/19/21 04/07/22 Rx Cholecalciferol (Vitamin D3) 125 mcg PO DAILY 01/11/22 01/17/22 History [Vitamin D3 (125 MCG = 5,000 IU)] Pantoprazole Sodium [Protonix] 40 mg PO DAILY 01/17/22 01/17/22 History Allergies Allergy/AdvReac Type Severity Reaction Status Date / Time No Known Allergies Allergy Verified 01/17/22 08:51 Objective - Constitutional General appearance: Present: cooperative - EENT Eyes: Present: EOMI ENT: Present: hearing grossly normal - Neck Neck: Present: normal ROM - Respiratory Respiratory: bilateral: CTA - Cardiovascular Heart sounds: normal: S1, S2 - Integumentary Integumentary Comment(s): mild ecchymosis at left breast biopsy site Integumentary: Present: normal turgor - Musculoskeletal Musculoskeletal: Present: gait normal - Psychiatric Psychiatric: Present: A&O x's 3, appropriate affect, intact judgment & insight - Additional findings Additional findings: Breast Exam: from examination of 03-13-23 BRA: 40DD inspection: bilateral reduction mammoplasty incisions palpation: right breast; multiple positional exam fibrocystic changes no dominant masses or nodules of concern within the parenchyma of the breast, at the 11 o'clock position there is a subcutaneous area of nodularity believed to be scar tissue Right axilla: No adenopathy of concern Left breast: Multiple positional exam fibrocystic changes no dominant masses or nodules of concern the 2:00 periareolar region approximately 8 mm area of firm nodularity which was palpated last year is not palpated on today's exam; today Mild ecchymosis at the biopsy site no evidence of infection Left axilla: No adenopathy of concern fungal infection under both breast Assessment and Plan Assessment: Impression: She has been seen and evaluated by medical oncology for chemo prophylaxis, she attempted tamoxifen did not tolerate it well and declined Her lifetime risk for breast cancer is less than 20% and she does not qualify for alternating breast MRIs on that basis no palpable left breast mass Abnormal left breast ultrasound on Prior bilateral reduction mammoplasty Strong family history of breast cancer genteic testing done and negative done 2021 Plan: Ultrasound core biopsy lesion of concern in the left breast revealed fibroadenoma nystatin for fungal infection under breast Close surveillance, patient yesenia 5 year risk is 1.5%, NCI lifetime risk 11.1% Bilateral mammogram in July with an ultrasound of the left breast as well to evaluate any change in size of the fibroadenoma Patient to follow up sooner any questions or concerns CC: Dr. Tomi Brizuela
[2023-04-10 08:47] VITALS: BP 149/94; PULSE 52; RESP 17; TEMP 98
== END ==
LOC: WWCWWP 08:15
PROVIDERS: ATTEND Surgery
DX: D24.2 Benign neoplasm of left breast (principal); K21.9 Gastro-esophageal reflux disease without esophagitis; M79.7 Fibromyalgia; E78.00 Pure hypercholesterolemia, unspecified; F17.210 Nicotine dependence, cigarettes, uncomplicated; Z80.3 Family history of malignant neoplasm of breast; Z86.018 Personal history of other benign neoplasm

== ENCOUNTER → 2024-02-09 | Outpatient (CLI) | payer OTHER ==
--- NOTE | 2024-02-09 10:16 | MM ---
Reason for Exam: Follow-up at short interval from prior study. Last screening mammogram was performed 11 month(s) ago. Patient History: Menarche at age 10. First Full-Term at age 16. Patient used Hormonal Contraceptives for 1 year. 03/26/2023, Benign US biopsy breast VAD LT on the left side. 10/2005, Excisional Biopsy on the Right side. 07/2011, Bilateral Reduction. 01/21/2022, Benign Core Biopsy on the left side. Paternal aunt had breast cancer, age 50. Paternal aunt had breast cancer, age 40. Risk Values: Becca 5 year model risk: 1.6%. NCI Lifetime model risk: 11.0%. Prior Study Comparison: 03/06/2022 Bilateral MG 3D screening mammo w/cad, [facility]. 03/07/2023 Bilateral MG 3D screening mammo w/cad, [facility]. 03/26/2023 Left MG diagnostic mammo LT wo CAD., [facility]. Tissue Density: The breasts are heterogeneously dense, which may obscure small masses. Findings: Analyzed By CAD. Left breast biopsy clip. No new suspicious masses, calcifications or distortions. Overall Assessment: Benign, BI-RAD 2 Management: Screening Mammogram of both breasts in 1 year. Results were given to the patient verbally at the time of exam. Patient should continue monthly self-breast exams. A clinical breast exam by your physician is recommended on an annual basis. This exam should not preclude additional follow-up of suspicious palpable abnormalities. Note on Becca scores and lifetime risk: 1. A Becca score greater than 3% is considered moderate risk. If this is the case, consider specialist referral to assess eligibility for a risk reducing agent. 2. If overall lifetime risk for the development of breast cancer is 20% or higher, the patient may qualify for future screening with alternating mammogram and breast MRI. Electronically signed and approved by: Jorge Isaacs DO
== END | disposition home or self-care (01) ==
LOC: RADMAMWWP 09:43
PROVIDERS: ATTEND Surgery
DX: R92.333 Mammographic heterogeneous density, bilateral breasts (principal); Z80.3 Family history of malignant neoplasm of breast
CPT/HCPCS: 77062; 77066